=== PATIENT | female | born 1965 | race Caucasian/White ===

== ENCOUNTER 2016-11-25 06:15 | Inpatient (IN) | payer OTHER ==
[2016-11-25] MEDS ORDERED: ONDANSETRON 4 MG/2 ML VIAL IVPUSH ONE (06:45)
[2016-11-25] MEDS ORDERED: ONDANSETRON 4 MG/2 ML VIAL ONE (06:47)
[2016-11-25] MEDS ORDERED: LABETALOL HCL 5 MG/1 ML (100MG/20 ML VIAL) IVPUSH ONE (06:48)
--- NOTE | 2016-11-25 06:48 | PDOC ---
History of Present Illness - General Chief Complaint: AV shunt bleeding Stated Complaint: PAIN/BLEEDING ARM/DIALYSIS Time Seen by Provider: 11/25/16 06:38 History Source: Patient, Family Exam Limitations: No Limitations - History of Present Illness Initial Comments: 11/25/16 06:46 This is a 51 y/o female who presented to ED with complaint of bleeding from fistula Pt state she was in her usual state of health when she noted bleeding from her fistula this morning. She states that she had a large volume of bleeding To her knowledge, she had no trauma to the fistula She denies pain in the arm or hand no numbness or tingling Pt denies SOB, abdominal pain She does note mild chest pain, a twinge of pain which began yesterday No aggravating or alleviating factors Upon re assessment, chest pain was 2 weeks ago PMH: ESRD on HD (M/W/F), HLD and HTN. PSHx: Left AV fistula FMHX: DM2 and HTN SH: Denies tobacco, alcohol or drug use. Renal: Dr. Anant Manuel GENERAL/CONSTITUTIONAL: No: fever, chills, weakness, loss of appetite. HEAD, EYES, EARS, NOSE AND THROAT: No: change in vision, ear pain, discharge, sore throat, throat swelling. CARDIOVASCULAR: No: chest pain, lightheadedness, palpitations, syncope RESPIRATORY: No: cough, shortness of breath, wheezing, hemoptysis, stridor. GASTROINTESTINAL: No: nausea, vomiting, diarrhea, abdominal cramping, rectal bleeding, constipation. GENITOURINARY: No: dysuria, hematuria, frequency, urgency, flank pain. MUSCULOSKELETAL: No: back pain, neck pain, joint pain, muscle swelling or pain SKIN : No: lesions, pallor, rash or easy bruising. NEUROLOGIC: No: headache, vertigo, paresthesias, weakness ENDOCRINE: No: unexplained weight gain or loss HEMATOLOGIC/LYMPHATIC: No: anemia, easy bleeding, swelling nodes. GENERAL: The patient is in no acute distress, hypertensive, vomiting on my examination HEAD: Normal with no signs of trauma. EYES: PERRLA, EOMI, sclera anicteric, conjunctiva clear. ENT: Ears normal, nares patent, oropharynx clear without exudates. Moist mucous membranes. NECK: Normal range of motion, supple without lymphadenopathy, JVD, or masses. LUNGS: Breath sounds equal, clear to auscultation bilaterally. No wheezes, and no crackles. HEART: Regular rate and rhythm, normal S1 and S2 without murmur, rub or gallop. ABDOMEN: Soft, nontender, normoactive bowel sounds. No guarding, no rebound. No masses palpable. EXTREMITIES: (+) Thrill, (+) bruit LUW fistula, Normal range of motion, no edema. NEUROLOGICAL: Cranial nerves II through XII grossly intact. Normal speech. No focal neurological deficits. MUSCULOSKELETAL: Back non-tender to palpation, no CVA tenderness SKIN: Warm, Dry, normal turgor, no rashes or lesions noted. 11/25/16 06:48 11/25/16 06:49 Past History - Past Medical History Allergies/Adverse Reactions: Allergies Allergy/AdvReac Type Severity Reaction Status Date / Time Penicillins Allergy Mild Rash Verified 03/27/16 12:47 doxercalciferol AdvReac Intermediate Itching Verified 03/27/16 12:47 [From Hectorol] Home Medications: Ambulatory Orders Sevelamer Carbonate [Renvela -] 800 mg PO TIDCM #30 tab 03/16/13 Amlodipine Besylate [Norvasc -] 10 mg PO DAILY #30 tablet 12/27/14 Albuterol Sulfate [Proair Respiclick] 90 mcg IH ASDIR PRN 03/27/16 Ipratropium [place] [Atrovent Hfa] 12.9 gm IH ASDIR PRN 03/27/16 Omeprazole 20 mg PO DAILY 03/27/16 Cinacalcet HCl [Sensipar -] 60 mg PO DAILY 11/25/16 Clonidine HCl [Clonidine HCl ER] 0.1 mg PO ASDIR 11/25/16 Enalapril Maleate 5 mg PO ASDIR 11/25/16 Cardiac Disorders: Yes (PACEMAKER INSERTION) Dialysis: Yes (M,W,F) HTN: Yes - Surgical History Cardiac Surgery: Yes (PACEMAKER) - Immunization History Immunization Up to Date: Yes - Psycho/Social/Smoking Cessation Hx Anxiety: No Suicidal Ideation: No Smoking Status: No Smoking History: Never smoked Have you smoked in the past 12 months: No Number of Cigarettes Smoked Daily: 0 Information on smoking cessation initiated: No Hx Alcohol Use: No Drug/Substance Use Hx: No Substance Use Type: None Hx Substance Use Treatment: No *Physical Exam - Vital Signs Last Vital Signs Temp Pulse Resp BP Pulse Ox 98.3 F 71 19 201/69 99 11/25/16 06:37 11/25/16 06:37 11/25/16 06:37 11/25/16 06:37 11/25/16 06:37 ED Treatment Course - LABORATORY CBC & Chemistry Diagram: 11/27/16 05:35 11/26/16 18:30 Medical Decision Making - Critical Care Time Total Critical Care Time (minutes): 35 Critical Care Statement: The care of this patient involved high complexity decision making to prevent further life threatening deterioration of the patient 's condition and/or to evalute & treat vital organ system(s) failure or risk of failure. - Medical Decision Making 11/25/16 06:51 Will check pt labs Will do EKG (Given nausea, possible ACS) Will give Zofran for vomiting Pt hypertensive Labetolol ordered 11/25/16 06:55 Pt has her medications Takes Clonidine 1mg QHS and Enalapril 5 mg daily Had chest pain 2 weeks ago, none now No shortness of breath Awaiting labs CXR EKG 11/25/16 06:56 No bleeding from shunt noted Pt signed out to Dr Jain *DC/Admit/Observation/Transfer Diagnosis at time of Disposition: HTN (hypertension) Qualifiers: Hypertension type: essential hypertension Qualified Code(s): I10 - Essential ( primary) hypertension - Discharge Dispostion Condition at time of disposition: Guarded Admit: Yes
[2016-11-25] MEDS ORDERED: LABETALOL HCL 5 MG/1 ML (200MG/40ML VIAL) IVPB ONE (06:57)
[2016-11-25 07:43] LABS: BASOPHIL 0.9 % (0-2.0); EOSINOPHIL 3.2 % (0-4.5); MCHC 33.4 g/dl (32.0-36.0); MEAN CELL VOLUME 95.9 fl (80-96); MEAN PLT VOLUME 9.7 fl (7.5-11.1); NEUTROPHILS 69.7 % (42.8-82.8); PLATELET COUNT 160 K/MM3 (134-434); WHITE BLOOD COUNT 6.1 K/mm3 (4.0-10.0)
[2016-11-25 08:00] LABS: ALBUMIN 3.7 g/dl (3.4-5.0); AMYLASE 230 U/L (25-115); BILIRUBIN,TOTAL 0.7 mg/dL (0.2-1.0); CALCIUM 9.5 mg/dL (8.5-10.1); CO2 25 mmol/L (21-32); GLUCOSE,RANDOM 107 mg/dL (74-106); SGOT/AST 29 U/L (15-37); SGPT/ALT 19 U/L (12-78); TOT PROT 6.8 g/dl (6.4-8.2)
[2016-11-25 08:06] LABS: ALK PHOS 150 U/L (45-117); TROPONIN I 0.15 ng/ml (0.00-0.05)
[2016-11-25 08:08] LABS: INR 1.04 (0.82-1.09); PROTHROMBIN TIME (PATIENT) 11.4 SEC (9.98-11.88)
[2016-11-25 08:30] LABS: ANION GAP 14 (8-16)
[2016-11-25 08:36] LABS: CREATININE 12.4 mg/dL (0.55-1.02)
[2016-11-25] MEDS ORDERED: DEXTROSE 50%-WATER - 25 GM/50 ML VIAL IVPUSH ONE (09:12)
[2016-11-25] MEDS ORDERED: INSULIN REGULAR HUMAN 100 UNITS/ML *VIAL IVPUSH ONE (09:12)
[2016-11-25] MEDS ORDERED: CALCIUM GLUCONATE 10% - 1,000 MG/10 ML VIAL IVPUSH ONE (09:19)
--- NOTE | 2016-11-25 12:38 | EKG ---
Test Reason : Blood Pressure : / mmHG Vent. Rate : 064 BPM Atrial Rate : 064 BPM P-R Int : 156 ms QRS Dur : 098 ms QT Int : 440 ms P-R-T Axes : 007 -11 085 degrees QTc Int : 453 ms NORMAL SINUS RHYTHM NONSPECIFIC T WAVE ABNORMALITY ABNORMAL ECG WHEN COMPARED WITH ECG OF 25-NOV-2016 07:21, NO SIGNIFICANT CHANGE WAS FOUND Confirmed by LORNA WILLAMS MD ([id number]) on 11/25/2016 12:38:41 PM Referred By: Confirmed By:LORNA WILLAMS MD
--- NOTE | 2016-11-25 12:47 | EKG ---
Test Reason : Blood Pressure : / mmHG Vent. Rate : 062 BPM Atrial Rate : 062 BPM P-R Int : 170 ms QRS Dur : 110 ms QT Int : 448 ms P-R-T Axes : -04 001 087 degrees QTc Int : 454 ms NORMAL SINUS RHYTHM NORMAL ECG WHEN COMPARED WITH ECG OF 18-OCT-2015 13:30, NO SIGNIFICANT CHANGE WAS FOUND Confirmed by LORNA WILLAMS MD ([id number]) on 11/25/2016 12:47:32 PM Referred By: Confirmed By:LORNA WILLAMS MD
--- NOTE | 2016-11-25 13:52 | CONSULT ---
Consult Consult Specialty:: Nephrology Reason for Consultation:: ESRD - History of Present Illness Chief Complaint: bleeding from fistula History of Present Illness: Pt is a 51 year old female with pmhx of ESRD, HTN and anemia who presents to the ER complaining of bleeding from her fistula. The bleeding has stopped and she did not bleed in the ER. She denies chest pain or shortness of breath. She was found to be hyperkalemic and I was called to evaluate her. She denies palpitations. She denies fevers or chills. Pt denies abdominal pain. - History Source History Provided By: Patient - Past Medical History Cardio/Vascular: Yes: HTN, Hyperlipdemia Renal/: Yes: Renal Failure, Hemodialysis ...LMP: 06/02/13 - Past Surgical History Past Surgical History: Yes: AV Fistula/Graft - Alcohol/Substance Use Hx Alcohol Use: No - Smoking History Smoking history: Never smoked Have you smoked in the past 12 months: No Aproximately how many cigarettes per day: 0 - Social History ADL: Independent History of Recent Travel: No Home Medications - Allergies Allergies/Adverse Reactions: Allergies Allergy/AdvReac Type Severity Reaction Status Date / Time Penicillins Allergy Mild Rash Verified 03/27/16 12:47 doxercalciferol AdvReac Intermediate Itching Verified 03/27/16 12:47 [From Hectorol] - Home Medications Home Medications: Ambulatory Orders Sevelamer Carbonate [Renvela -] 800 mg PO TIDCM #30 tab 03/16/13 Amlodipine Besylate [Norvasc -] 10 mg PO DAILY #30 tablet 12/27/14 Albuterol Sulfate [Proair Respiclick] 90 mcg IH ASDIR PRN 03/27/16 Ipratropium [place] [Atrovent Hfa] 12.9 gm IH ASDIR PRN 03/27/16 Omeprazole 20 mg PO DAILY 03/27/16 Cinacalcet HCl [Sensipar -] 60 mg PO DAILY 11/25/16 Clonidine HCl [Clonidine HCl ER] 0.1 mg PO ASDIR 11/25/16 Enalapril Maleate 5 mg PO ASDIR 11/25/16 Family Disease History - Family Disease History Family History: Denies Review of Systems - Review of Systems Constitutional: reports: No Symptoms Eyes: reports: No Symptoms HENT: reports: No Symptoms Neck: reports: No Symptoms Cardiovascular: reports: No Symptoms Respiratory: reports: No Symptoms Gastrointestinal: reports: No Symptoms Genitourinary: reports: No Symptoms Musculoskeletal: reports: Other (av fistula) Neurological: reports: No Symptoms Endocrine: reports: No Symptoms Psychiatric: reports: No Symptoms Physical Exam Vital Signs: Vital Signs Temperature 98.0 F 11/25/16 11:12 Pulse Rate 61 11/25/16 11:12 Respiratory Rate 20 11/25/16 11:12 Blood Pressure 165/80 11/25/16 11:12 O2 Sat by Pulse Oximetry (%) 99 11/25/16 11:12 Constitutional: Yes: Calm Eyes: Yes: Conjunctiva Clear HENT: Yes: Atraumatic Neck: Yes: Supple Cardiovascular: Yes: S1, S2 Respiratory: Yes: CTA Bilaterally Gastrointestinal: Yes: Soft Renal/: Yes: WNL Musculoskeletal: Yes: WNL Extremities: Yes: Other (fistula with thrill and bruit) Neurological: Yes: Oriented Psychiatric: Yes: Oriented Labs: CBC, BMP 11/25/16 06:55 11/25/16 10:46 Problem List - Problems (1) ESRD (end stage renal disease) Code(s): N18.6 - END STAGE RENAL DISEASE (2) Hyperkalemia Code(s): E87.5 - HYPERKALEMIA (3) Bleeding from dialysis shunt Code(s): T82.838A - HEMORRHAGE DUE TO VASCULAR PROSTH DEV/GRFT, INIT Qualifiers: Encounter type: initial encounter Qualified Code(s): T82.838A - Hemorrhage due to vascular prosthetic devices, implants and grafts, initial encounter Assessment/Plan Impression 1. ESRD 2. hyperkalemia 3. bleeding fistula 4. HTN 5. anemia 6. elevated amylase and lipase Plan - will arrange for HD today - resume home medications - repeat labs after HD - epogen for anemia - monitor blood pressure - vascular surgery eval - HD Prescription :L3:30, opti 180 doo448, DW 43.5, AV fistula, epogen 6000, calcitriol 0.[address] Wright
[2016-11-25] MEDS ORDERED: EPOETIN ALFA 2,000 UNITS/1 ML VIAL IVPUSH ONE (13:58)
[2016-11-25] MEDS ORDERED: CALCITRIOL 0.25 MCG CAPSULE (FP) PO SCH (14:45)
[2016-11-25] MEDS ORDERED: EPOETIN ALFA 3,000 UNIT, EPOETIN ALFA 2,000 UNIT IVPUSH ONE (16:45)
--- NOTE | 2016-11-25 17:05 | HP ---
CHIEF COMPLAINT: Left upper arm fistula with acute bleeding. PCP: Renal: Dr. Manuel. HISTORY OF PRESENT ILLNESS: Patient is a 51 year old female with a significant past medical history of ESRD. She presented to the ER today with complaint of bleeding from her left upper arm fistula. Patient states that she was at her usual state of health when she noted bleeding from her fistula this morning. She states that she had a large volume of bleeding and denies any trauma to the fistula. She denies any pain in the arm or hand. Denies any numbness or tingling. She denies any chest pain or shortness of breath. ER course was notable for: (1) Trop 0.15 (2) Potassium 6.3-6.6 (3) Lipase 1302 (4) +bruit + thrill Left arm fistula Recent Travel: denies PAST MEDICAL HISTORY: ESRD on HD (M/W/F), HLD and HTN, DM2 and HTN PAST SURGICAL HISTORY: Left AV fistula Social History: Smoking: denies Alcohol: denies Drugs: denies Family History: Allergies Penicillins Allergy (Mild, Verified 03/27/16 12:47) Rash doxercalciferol [From Hectorol] Adverse Reaction (Intermediate, Verified 12:47) Itching HOME MEDICATIONS: Home Medications Medication Instructions Recorded Sevelamer Carbonate [Renvela -] 800 mg PO TIDCM #30 tab 03/16/13 Amlodipine Besylate [Norvasc -] 10 mg PO DAILY #30 tablet 12/27/14 Albuterol Sulfate [Proair 90 mcg IH ASDIR PRN 03/27/16 Respiclick] Ipratropium [place] [Atrovent Hfa] 12.9 gm IH ASDIR PRN 03/27/16 Omeprazole 20 mg PO DAILY 03/27/16 Cinacalcet HCl [Sensipar -] 60 mg PO DAILY 11/25/16 Clonidine HCl [Clonidine HCl ER] 0.1 mg PO ASDIR 11/25/16 Enalapril Maleate 5 mg PO ASDIR 11/25/16 REVIEW OF SYSTEMS CONSTITUTIONAL: GENERAL/CONSTITUTIONAL: No: fever, chills, weakness, loss of appetite. HEAD, EYES, EARS, NOSE AND THROAT: No: change in vision, ear pain, discharge, sore throat, throat swelling. CARDIOVASCULAR: No: chest pain, lightheadedness, palpitations, syncope RESPIRATORY: No: cough, shortness of breath, wheezing, hemoptysis, stridor. GASTROINTESTINAL: No: nausea, vomiting, diarrhea, abdominal cramping, rectal bleeding, constipation. GENITOURINARY: No: dysuria, hematuria, frequency, urgency, flank pain. MUSCULOSKELETAL: No: back pain, neck pain, joint pain, muscle swelling or pain SKIN : No: lesions, pallor, rash or easy bruising. NEUROLOGIC: No: headache, vertigo, paresthesias, weakness ENDOCRINE: No: unexplained weight gain or loss HEMATOLOGIC/LYMPHATIC: No: anemia, easy bleeding, swelling nodes. PHYSICAL EXAMINATION GENERAL: The patient is in no acute distress, hypertensive, vomiting on examination HEAD: Normal with no signs of trauma. EYES: PERRLA, EOMI, sclera anicteric, conjunctiva clear. ENT: Ears normal, nares patent, oropharynx clear without exudates. Moist mucous membranes. NECK: Normal range of motion, supple without lymphadenopathy, JVD, or masses. LUNGS: Breath sounds equal, clear to auscultation bilaterally. No wheezes, and no crackles. HEART:Regular rate and rhythm, normal S1 and S2 without murmur, rub or gallop. ABDOMEN: Soft, nontender, normoactive bowel sounds. No guarding, no rebound. No masses palpable. EXTREMITIES: (+) Thrill, (+) bruit L fistula, Normal range of motion, no edema. NEUROLOGICAL: Cranial nerves II through XII grossly intact. Normal speech. No focal neurological deficits. MUSCULOSKELETAL: Back non-tender to palpation, no CVA tenderness SKIN: Warm, Dry, normal turgor, no rashes or lesions noted. ASSESSMENT/PLAN: Patient is a 51 year old female with a significant past medical history of ESRD. She presented to the ER today with complaint of bleeding from her left upper arm fistula. Patient states that she was at her usual state of health when she noted bleeding from her fistula this morning. She states that she had a large volume of bleeding and denies any trauma to the fistula. She denies any pain in the arm or hand. Denies any numbness or tingling. She denies any chest pain or shortness of breath. On admission her potassium levels were noted to be 6.6, troponins 0.15. She is now in dialysis after an emergent shiley was placed on her right groin. Renal: ESRD Assessment/Plan: For dialysis today via right groin shiley placement K @ 6.6, will repeat labs after dialysis and the a.m. and monitor No acute bleeding since admission, will repeat CBC, CMP and monitor Vascular consult Cardiology: Elevated Troponins - rule out ACS Assessment/Plan: 1st trop elevated @ 0.15, will trend Denies chest pain on exam, denies shortness of breath, denies any nausea or vomiting EKG shows NSR with non specific t wave abnormality, no change since last smalltalk developer elevated K and trops If trops rise, will transfer to tele GI: Elevated Lipase @ 1302, no abdominal pain or discomfort Assessment/Plan: Tolerated meal today without nausea or vomiting Will monitor for now F.E.N. Fluids: Tolerating PO Electrolytes: monitor Nutrition: renal diet Prophylaxis: No a/c secondary to acute blood loss GI: deferred for now. Disposition: Requires inpatient hospitalization. Full code. Visit type - Emergency Visit Emergency Visit: Yes ED Registration Date: 11/25/16 Care time: The patient presented to the Emergency Department on the above date and was hospitalized for further evaluation of their emergent condition. - New Patient This patient is new to me today: Yes Date on this admission: 11/25/16 - Critical Care Critical Care patient: No
[2016-11-25] MEDS ORDERED: PATIENT'S OWN MEDICATION (NON-FORMULARY) (Albuterol Sulfate [Proair Respiclick] 90 MCG) IH PRN (17:12)
[2016-11-25] MEDS ORDERED: PATIENT'S OWN MEDICATION (NON-FORMULARY) (Ipratropium Bromide [Atrovent Hfa] 12.9 GM) IH PRN (17:12)
[2016-11-25] MEDS ORDERED: PATIENT'S OWN MEDICATION (NON-FORMULARY) (Clonidine Hcl [Clonidine Hcl Er] 0.1 MG) PO SCH (17:15)
--- NOTE | 2016-11-25 17:45 | PROC ---
Central Line Insertion - Procedure Note TIME OUT performed prior to this procedure with verbal confirmation of correct patient identity, correct side, agreement of the procedure, correct patient position, availability of necessary equipment. The consent form is complete and accurate. Risk of possible infection, bleeding and pneumothorax have been discussed with the patient. Safety precautions based on patient history or medication use has been addressed. Indication: Other (hemodialysis access) Consent on Chart: Yes ( [facility] #[id number]) Central Line: Dialysis Cath, Dual Lumen Position: Supine Area prepped with Chlorhexidine solution then draped using sterile barrier protection. Anesthesia: Lidocaine 1% (15ml) Technique used: Seldinger Ultrasound Guided Assistance: No Site: Right Femoral Dark venous non-pulsatile flow noted from hub of needle. The catheter was introduced. Guide wire removed intact. Each port aspirated then flushed with sterile normal saline. The Line secured to skin with silk suture. The line was connected to the HD machine and good flows were obtained. Sterile dressing placed over catheter site.Nurses to apply final dressing.No complications. Patient tolerated the procedure well.
[2016-11-25] MEDS ORDERED: ALBUTEROL SO4 2.5/IPRATROPIUM 0.5 INH SOL 3 ML VIAL.NEB. NEB PRN (18:41)
[2016-11-25 21:24] LABS: BASOPHIL 0.7 % (0-2.0); EOSINOPHIL 1.7 % (0-4.5); MCH 31.4 pg (25.7-33.7); MCHC 32.9 g/dl (32.0-36.0); MEAN CELL VOLUME 95.4 fl (80-96); MEAN PLT VOLUME 9.6 fl (7.5-11.1); PLATELET COUNT 168 K/MM3 (134-434); RDW 15.4 % (11.6-15.6); WHITE BLOOD COUNT 4.6 K/mm3 (4.0-10.0)
[2016-11-25] MEDS ORDERED: ACETAMINOPHEN 325 MG TABLET (FP) PO PRN (21:48)
[2016-11-25 21:49] LABS: ALBUMIN 3.5 g/dl (3.4-5.0); ALK PHOS 135 U/L (45-117); ANION GAP 10 (8-16); BILIRUBIN,TOTAL 0.6 mg/dL (0.2-1.0); CALCIUM 8.5 mg/dL (8.5-10.1); CO2 33 mmol/L (21-32); CREATININE 4.3 mg/dL (0.55-1.02); GLUCOSE,RANDOM 183 mg/dL (74-106); SGOT/AST 26 U/L (15-37); SGPT/ALT 17 U/L (12-78); TOT PROT 6.7 g/dl (6.4-8.2)
[2016-11-25] MEDS: CALCITRIOL 0.25 MCG CAPSULE (FP) PO SCH (21:55)
[2016-11-25] MEDS: cloNIDine HCL 0.1 MG TABLET PO SCH (22:42)
[2016-11-25 23:32] VITALS: BMI 23.6
[2016-11-26] MEDS: SEVELAMER CARBONATE 800 MG TAB (FP) PO SCH ×3 (08:00→17:56)
[2016-11-26 08:50] LABS: BASOPHIL 1.3 % (0-2.0); EOSINOPHIL 3.2 % (0-4.5); MCH 31.6 pg (25.7-33.7); MCHC 32.9 g/dl (32.0-36.0); MEAN CELL VOLUME 96.1 fl (80-96); MEAN PLT VOLUME 10.1 fl (7.5-11.1); NEUTROPHILS 72.5 % (42.8-82.8); PLATELET COUNT 151 K/MM3 (134-434); RDW 14.9 % (11.6-15.6); WHITE BLOOD COUNT 4.6 K/mm3 (4.0-10.0)
[2016-11-26 09:20] LABS: ALBUMIN 3.2 g/dl (3.4-5.0); ANION GAP 9 (8-16); CALCIUM 8.8 mg/dL (8.5-10.1); CO2 30 mmol/L (21-32); GLUCOSE,RANDOM 87 mg/dL (74-106)
[2016-11-26 09:30] LABS: ALK PHOS 128 U/L (45-117); BILIRUBIN,TOTAL 0.6 mg/dL (0.2-1.0); PHOSPHOROUS 6.6 mg/dL (2.5-4.9); SGOT/AST 26 U/L (15-37); SGPT/ALT 15 U/L (12-78); TOT PROT 6.3 g/dl (6.4-8.2)
[2016-11-26 09:31] LABS: CHOLESTEROL 164 mg/dL (50-200); LDL CHOLESTEROL (ONLY SJRH) 92 mg/dL (5-100)
[2016-11-26 10:03] LABS: CREATININE 8.2 mg/dL (0.55-1.02)
[2016-11-26] MEDS ORDERED: PT OWN MED DRAWER 7, Y5N ONE ×3 (10:48→21:29)
[2016-11-26] MEDS: amLODIPine BESYLATE 10 MG TABLET (FP) PO SCH (10:51)
[2016-11-26] MEDS: cloNIDine HCL 0.1 MG TABLET PO SCH ×3 (10:51→21:41)
[2016-11-26] MEDS: CINACALCET HCL 30 MG TAB (FP) PO SCH ×2 (10:52→12:41)
[2016-11-26] MEDS: ENALAPRIL MALEATE 5 MG TABLET (FP) PO SCH (10:52)
[2016-11-26] MEDS: PANTOPRAZOLE 20 MG TABLET (FP) PO SCH ×2 (10:52→12:41)
--- NOTE | 2016-11-26 11:23 | PN ---
Physical Exam: SUBJECTIVE: Patient seen and examined. Verbalizing pain of the right shiley site. Denies chest pain or shortness of breath OBJECTIVE: Emergent right groin shiley placed yesterday and patient received dialysis Morning labs shows Potassium 6.6, creat 8.2 Patient for repeat dialysis (via right groin shiley) as per Dr. Momin Trops 0.15>0.14>0.14, cardiology consulted Vascular to evaluate LUE av fistula Vital Signs Period Temp Pulse Resp BP Sys/Angel Pulse Ox Last 24 Hr 98.2 F-98.4 F 57-81 18-18 147-177/59-80 99 GENERAL: The patient is in no acute distress, hypertensive, vomiting on examination HEAD: Normal with no signs of trauma. EYES: PERRLA, EOMI, sclera anicteric, conjunctiva clear. ENT: Ears normal, nares patent, oropharynx clear without exudates. Moist mucous membranes. NECK: Normal range of motion, supple without lymphadenopathy, JVD, or masses. LUNGS: Breath sounds equal, clear to auscultation bilaterally. No wheezes, and no crackles. HEART:Regular rate and rhythm, normal S1 and S2 without murmur, rub or gallop. ABDOMEN: Soft, nontender, normoactive bowel sounds. No guarding, no rebound. No masses palpable. EXTREMITIES: (+) Thrill, (+) bruit L fistula, Normal range of motion, no edema - no further bleeding NEUROLOGICAL: Cranial nerves II through XII grossly intact. Normal speech. No focal neurological deficits. MUSCULOSKELETAL: Back non-tender to palpation, no CVA tenderness SKIN: Warm, Dry, normal turgor, no rashes or lesions noted. Laboratory Results - last 24 hr 11/25/16 11/25/16 11/25/16 21:00 21:00 21:00 WBC 4.6 RBC 3.41 L Hgb 10.7 D Hct 32.5 MCV 95.4 MCHC 32.9 RDW 15.4 Plt Count 168 MPV 9.6 Neutrophils % 79.0 Lymphocytes % 15.3 D Monocytes % 3.3 L Eosinophils % 1.7 Basophils % 0.7 Sodium 141 Potassium 3.7 D Chloride 98 Carbon Dioxide 33 H D Anion Gap 10 BUN 24 H D Creatinine 4.3 H D Creat Clearance w eGFR 10.82 POC Glucometer Random Glucose 183 H D Hemoglobin A1c % Calcium 8.5 Phosphorus Total Bilirubin 0.6 AST 26 ALT 17 Alkaline Phosphatase 135 H Troponin I 0.14 H Total Protein 6.7 Albumin 3.5 Triglycerides Cholesterol Total LDL Cholesterol HDL Cholesterol Lipase 11/25/16 11/26/16 11/26/16 21:50 00:52 05:52 WBC RBC Hgb Hct MCV MCHC RDW Plt Count MPV Neutrophils % Lymphocytes % Monocytes % Eosinophils % Basophils % Sodium Potassium Chloride Carbon Dioxide Anion Gap BUN Creatinine Creat Clearance w eGFR POC Glucometer 159 92 Random Glucose Hemoglobin A1c % Calcium Phosphorus Total Bilirubin AST ALT Alkaline Phosphatase Troponin I 0.14 H Total Protein Albumin Triglycerides Cholesterol Total LDL Cholesterol HDL Cholesterol Lipase 11/26/16 11/26/16 11/26/16 07:20 07:20 07:20 WBC 4.6 RBC 3.67 Hgb 11.6 Hct 35.3 MCV 96.1 H MCHC 32.9 RDW 14.9 Plt Count 151 MPV 10.1 Neutrophils % 72.5 Lymphocytes % 16.5 Monocytes % 6.5 D Eosinophils % 3.2 D Basophils % 1.3 Sodium 138 Potassium 6.6 H* D Chloride 99 Carbon Dioxide 30 Anion Gap 9 BUN 44 H D Creatinine 8.2 H* D Creat Clearance w eGFR 5.14 POC Glucometer Random Glucose 87 D Hemoglobin A1c % Calcium 8.8 Phosphorus 6.6 H D Total Bilirubin 0.6 AST 26 ALT 15 Alkaline Phosphatase 128 H Troponin I Total Protein 6.3 L Albumin 3.2 L Triglycerides Cholesterol Total LDL Cholesterol HDL Cholesterol Lipase 489 H 11/26/16 11/26/16 07:20 07:20 WBC RBC Hgb Hct MCV MCHC RDW Plt Count MPV Neutrophils % Lymphocytes % Monocytes % Eosinophils % Basophils % Sodium Potassium Chloride Carbon Dioxide Anion Gap BUN Creatinine Creat Clearance w eGFR POC Glucometer Random Glucose Hemoglobin A1c % 4.7 L D Calcium Phosphorus Total Bilirubin AST ALT Alkaline Phosphatase Troponin I Total Protein Albumin Triglycerides 130 D Cholesterol 164 Total LDL Cholesterol 92 HDL Cholesterol 61 H Lipase Active Medications Generic Name Dose Route Start Last Admin Trade Name Freq PRN Reason Stop Dose Admin Acetaminophen 650 mg 11/25/16 21:48 11/25/16 21:56 Tylenol - PO 650 mg Q4H PRN Administration FEVER OR PAIN Albuterol/Ipratropium 1 amp 11/25/16 18:41 Duoneb - NEB Q6H PRN SHORTNESS OF BREATH Amlodipine Besylate 10 mg 11/26/16 10:00 11/26/16 10:51 Norvasc - PO Not Given DAILY SKYE Calcitriol 0.75 mcg 11/25/16 21:30 11/25/16 21:55 Rocaltrol - PO 0.75 mcg Q2D SKYE Administration Cinacalcet 60 mg 11/26/16 10:00 11/26/16 10:52 Sensipar - PO Not Given DAILY SKYE Clonidine 0.1 mg 11/25/16 22:00 11/26/16 10:51 Catapres - PO Not Given BID SKYE Enalapril Maleate 5 mg 11/26/16 10:00 11/26/16 10:52 Vasotec - PO Not Given DAILY SKYE Pantoprazole Sodium 20 mg 11/26/16 10:00 11/26/16 10:52 Protonix - PO Not Given DAILY SKYE Sevelamer Carbonate 800 mg 11/25/16 17:30 11/26/16 08:00 Renvela - PO Not Given TIDCM [facility] ASSESSMENT/PLAN: Patient is a 51 year old female with a significant past medical history of ESRD. She presented to the ER on 11/25/2016 with complaint of bleeding from her left upper arm fistula. Patient states that she was at her usual state of health when she noted bleeding from her fistula. She states that she had a large volume of bleeding and denies any trauma to the fistula. She denies any pain in the arm or hand. Denies any numbness or tingling. She denies any chest pain or shortness of breath. On admission her potassium levels were noted to be 6.6, troponins 0.15. Renal: ESRD Assessment/Plan: Received dialysis yesterday via right groin shiley, post dialysis lab shows improvement Repeat a.m. labs shows K of 6.6 and Creat of 8.2 For repeat dialysis today via right groin shiley placement No acute bleeding since admission of Left upper arm fistula Vascular consult to evaluate fistula Renal following Cardiology: Elevated Troponins - rule out ACS Assessment/Plan: Trops 0.15>0.14>0.14 Denies chest pain on exam, denies shortness of breath, denies any nausea or vomiting EKG shows NSR with non specific t wave abnormality, no change since last EKG Cardiology consulted and following GI: Elevated Lipase @ 1302 on admission, now trending down Assessment/Plan: no abdominal pain or discomfort, tolerating meals Patient without nausea or vomiting Will monitor for now F.E.N. Fluids: Tolerating PO Electrolytes: monitor Nutrition: renal diet Prophylaxis: No a/c secondary to acute blood loss, SCDs while in bed GI: deferred for now. Disposition: Requires inpatient hospitalization. Full code. Visit type - Emergency Visit Emergency Visit: Yes ED Registration Date: 11/25/16 Care time: The patient presented to the Emergency Department on the above date and was hospitalized for further evaluation of their emergent condition. - New Patient This patient is new to me today: No - Critical Care Critical Care patient: No - Discharge Referral Referred to [facility] Med P.C[facility] No
[2016-11-26] MEDS ORDERED: POLYETHYLENE GLYCOL 3350 119 GM BTL PO ONE (11:24)
[2016-11-26] MEDS ORDERED: morphine CARPU-JECT 2 MG/1 ML DISP.SYRIN IVPUSH PRN (11:24)
[2016-11-26 11:38] LABS: ALBUMIN 3.4 g/dl (3.4-5.0); ANION GAP 11 (8-16); BILIRUBIN,TOTAL 0.5 mg/dL (0.2-1.0); CALCIUM 9.7 mg/dL (8.5-10.1); CO2 32 mmol/L (21-32); GLUCOSE,RANDOM 98 mg/dL (74-106); SGOT/AST 21 U/L (15-37); SGPT/ALT 18 U/L (12-78); TOT PROT 6.2 g/dl (6.4-8.2)
[2016-11-26 11:43] LABS: ALK PHOS 126 U/L (45-117)
--- NOTE | 2016-11-26 11:51 | CON.CARD ---
Consult Consult Specialty:: Cardiology Referred by:: Hospitalist Reason for Consultation:: Cardiac evaluation - History of Present Illness History of Present Illness: Patient is a 51 year old female of descent with history of ESRD on HD, hypertension and hypercholesterolemia who presented with left upper arm fistula bleeding. She complains of mild chest discomfort in the mid sternum. She denies shortness of breath or palpitations. She denies paroxysmal nocturnal dyspnea or orthopnea. She denies fever or chills. She denies headache or lightheadedness. Cardiology consultation was called for further evaluation. - History Source History Provided By: Patient, Medical Record Limitations to Obtaining History: Language Barrier - Past Medical History Cardio/Vascular: Yes: HTN, Hyperlipdemia Renal/: Yes: Renal Failure, Hemodialysis ...LMP: 06/02/13 - Past Surgical History Past Surgical History: Yes: AV Fistula/Graft - Alcohol/Substance Use Hx Alcohol Use: No History of Substance Use: reports: None - Smoking History Smoking history: Never smoked Have you smoked in the past 12 months: No Aproximately how many cigarettes per day: 0 - Social History ADL: Independent History of Recent Travel: No Home Medications - Allergies Allergies/Adverse Reactions: Allergies Allergy/AdvReac Type Severity Reaction Status Date / Time Penicillins Allergy Mild Rash Verified 03/27/16 12:47 doxercalciferol AdvReac Intermediate Itching Verified 03/27/16 12:47 [From Hectorol] - Home Medications Home Medications: Ambulatory Orders Sevelamer Carbonate [Renvela -] 800 mg PO TIDCM #30 tab 03/16/13 Amlodipine Besylate [Norvasc -] 10 mg PO DAILY #30 tablet 12/27/14 Albuterol Sulfate [Proair Respiclick] 90 mcg IH ASDIR PRN 03/27/16 Ipratropium [place] [Atrovent Hfa] 12.9 gm IH ASDIR PRN 03/27/16 Omeprazole 20 mg PO DAILY 03/27/16 Cinacalcet HCl [Sensipar -] 60 mg PO DAILY 11/25/16 Clonidine HCl [Clonidine HCl ER] 0.1 mg PO ASDIR 11/25/16 Enalapril Maleate 5 mg PO ASDIR 11/25/16 Family Disease History - Family Disease History Other Family History: DM and HTN Review of Systems - Review of Systems Constitutional: denies: Chills, Fever Cardiovascular: reports: Chest Pain. denies: Palpitations, Shortness of Breath Respiratory: denies: Cough, Orthopnea, PND, SOB, SOB on Exertion Gastrointestinal: denies: Abdominal Pain, Constipation, Diarrhea, Melena, Nausea , Rectal Bleeding, Vomiting Neurological: denies: Dizziness, Headache, Seizure, Syncope Vital Signs: Vital Signs Temperature 98.4 F 11/26/16 06:00 Pulse Rate 57 L 11/26/16 06:00 Respiratory Rate 18 11/26/16 06:00 Blood Pressure 150/76 11/26/16 06:00 O2 Sat by Pulse Oximetry (%) 99 11/25/16 23:35 Neck: Yes: Supple Respiratory: Yes: Regular, CTA Bilaterally Gastrointestinal: Yes: Normal Bowel Sounds, Soft. No: Tenderness Cardiovascular: Yes: Regular Rate and Rhythm JVD: No Carotid Bruit: No PMI: Non-Displaced Heart Sounds: Yes: S1, S2 Edema: No - Other Data Labs, Other Data: CBC, BMP 11/26/16 07:20 INR, PTT INR 1.04 (0.82-1.09) 11/25/16 07:39 Troponin, BNP Laboratory Results - last 24 hr 11/26/16 11/26/16 11/26/16 00:52 05:52 07:20 WBC RBC Hgb Hct MCV MCHC RDW Plt Count MPV Neutrophils % Lymphocytes % Monocytes % Eosinophils % Basophils % Sodium 138 Potassium 6.6 H* D Chloride 99 Carbon Dioxide 30 Anion Gap 9 BUN 44 H D Creatinine 8.2 H* D Creat Clearance w eGFR 5.14 POC Glucometer 92 Random Glucose 87 D Hemoglobin A1c % Calcium 8.8 Phosphorus 6.6 H D Total Bilirubin 0.6 AST 26 ALT 15 Alkaline Phosphatase 128 H Creatine Kinase Troponin I 0.14 H Total Protein 6.3 L Albumin 3.2 L Triglycerides Cholesterol Total LDL Cholesterol HDL Cholesterol Lipase 11/26/16 11/26/16 11/26/16 07:20 07:20 07:20 WBC 4.6 RBC 3.67 Hgb 11.6 Hct 35.3 MCV 96.1 H MCHC 32.9 RDW 14.9 Plt Count 151 MPV 10.1 Neutrophils % 72.5 Lymphocytes % 16.5 Monocytes % 6.5 D Eosinophils % 3.2 D Basophils % 1.3 Sodium Potassium Chloride Carbon Dioxide Anion Gap BUN Creatinine Creat Clearance w eGFR POC Glucometer Random Glucose Hemoglobin A1c % Calcium Phosphorus Total Bilirubin AST ALT Alkaline Phosphatase Creatine Kinase Troponin I Total Protein Albumin Triglycerides 130 D Cholesterol 164 Total LDL Cholesterol 92 HDL Cholesterol 61 H Lipase 489 H 11/26/16 11/26/16 11/26/16 07:20 10:50 18:30 WBC RBC Hgb Hct MCV MCHC RDW Plt Count MPV Neutrophils % Lymphocytes % Monocytes % Eosinophils % Basophils % Sodium 139 140 Potassium 6.2 H* 3.1 L D Chloride 96 L 99 Carbon Dioxide 32 36 H Anion Gap 11 5 L BUN 50 H 12 D Creatinine 8.5 H* 2.0 H D Creat Clearance w eGFR 4.93 POC Glucometer Random Glucose 98 140 H D Hemoglobin A1c % 4.7 L D Calcium 9.7 7.8 L Phosphorus Total Bilirubin 0.5 AST 21 ALT 18 Alkaline Phosphatase 126 H Creatine Kinase Troponin I Total Protein 6.2 L Albumin 3.4 Triglycerides Cholesterol Total LDL Cholesterol HDL Cholesterol Lipase 11/25/16 11/26/16 21:00 00:52 Troponin I 0.14 H 0.14 H Sinus rhythm with ST-T abnormality in inferior and lateral leads Imaging - Results EKG: Report Reviewed Problem List - Problems (1) ESRD (end stage renal disease) Code(s): N18.6 - END STAGE RENAL DISEASE (2) Atypical chest pain Code(s): R07.89 - OTHER CHEST PAIN (3) Hemorrhage of arteriovenous fistula Code(s): T82.838A - HEMORRHAGE DUE TO VASCULAR PROSTH DEV/GRFT, INIT Qualifiers: Encounter type: initial encounter Qualified Code(s): T82.838A - Hemorrhage due to vascular prosthetic devices, implants and grafts, initial encounter (4) Hemodialysis access site with arteriovenous graft Code(s): Z99.2 - DEPENDENCE ON RENAL DIALYSIS (5) HTN (hypertension) Code(s): I10 - ESSENTIAL (PRIMARY) HYPERTENSION Qualifiers: Hypertension type: essential hypertension Qualified Code(s): I10 - Essential (primary) hypertension (6) Hypercholesterolemia Code(s): E78.00 - PURE HYPERCHOLESTEROLEMIA, UNSPECIFIED Assessment/Plan 1. Bleeding in the AV fistula 2. ESRD on HD 3. HTN 4. Hypercholesterolemia 5. Probable CAD - demand ischemia PLAN: 1. Cardiac enzyme and ECG 2. Continue Amlodipine, Clonidine and Vasotec (titrate dose) 3. Transthoracic echocardiography to assess LV and valvular function 4. HD 5. Vascular surgical evaluation Further plans are to follow Arthur Castaneda MD
[2016-11-26 11:56] LABS: CREATININE 8.5 mg/dL (0.55-1.02)
--- NOTE | 2016-11-26 12:00 | PN ---
Progress Note (short form) - Note Progress Note: Spoke with the patient yesterday regarding the bleeding in her upper arm fistula. The [employer] phone was used ( alliance manager number [phone] ). She states that starting last week she had some bleeding with her HD session, the following session the needles were placed in another location and she didn't have any bleeding. Friday her fistula started to bleed and eventually stopped after holding pressure. She was seen in Dr. Lopez's office an had a duplex completed. The patient denies any fevers, or erythema to her arm and has no pain. Today the patient has some pain in right groin, otherwise ok. Vital Signs Period Temp Pulse Resp BP Sys/Angel Pulse Ox Last 24 Hr 98.2 F-98.4 F 54-81 18-18 147-202/59-80 99 PE: GEN: appears comfortable Right groin: shiley in place, no masses/ecchymosis b/l feet warm with palpable DP pulses. LUE: good thrill, no bleeding noted. dry dressing remains in place. CBC, BMP 11/26/16 07:20 11/26/16 10:50 A/P: 51 yo female with LUE fistula and bleeding right femoral catheter shiley placed 11/25 and had dialysis 2.0 kgs wt removed. Repeat K remains elevated today, although yest lab improved. Plan for possible HD today again via right femoral shiley Npo after midnight for left AV venogram, as D/w Dr. Price
--- NOTE | 2016-11-26 14:28 | PN ---
Progress Note, Physician History of Present Illness: Pt seen and examined at bedside. She is awake and alert. She denies shortness of breath or palpitations. - Current Medication List Current Medications: Active Medications Acetaminophen (Tylenol -) 650 mg PO Q4H PRN PRN Reason: FEVER OR PAIN Last Admin: 11/25/16 21:56 Dose: 650 mg Albuterol/Ipratropium (Duoneb -) 1 amp NEB Q6H PRN PRN Reason: SHORTNESS OF BREATH Amlodipine Besylate (Norvasc -) 10 mg PO DAILY [facility] Last Admin: 11/26/16 10:51 Dose: Not Given Calcitriol (Rocaltrol -) 0.75 mcg PO Q2D [facility] Last Admin: 11/25/16 21:55 Dose: 0.75 mcg Cinacalcet (Sensipar -) 60 mg PO DAILY [facility] Last Admin: 11/26/16 12:41 Dose: 60 mg Clonidine (Catapres -) 0.1 mg PO BID [facility] Last Admin: 11/26/16 12:43 Dose: 0.1 mg Enalapril Maleate (Vasotec -) 5 mg PO DAILY [facility] Last Admin: 11/26/16 10:52 Dose: Not Given Morphine Sulfate (Morphine Injection -) 1 mg IVPUSH Q4H PRN PRN Reason: PAIN Pantoprazole Sodium (Protonix -) 20 mg PO DAILY [facility] Last Admin: 11/26/16 12:41 Dose: 20 mg Sevelamer Carbonate (Renvela -) 800 mg PO TIDCM [facility] Last Admin: 11/26/16 12:41 Dose: 800 mg - Objective Vital Signs: Vital Signs Temperature 99.1 F 11/26/16 10:00 Pulse Rate 68 11/26/16 10:00 Respiratory Rate 18 11/26/16 10:00 Blood Pressure 158/67 11/26/16 10:00 O2 Sat by Pulse Oximetry (%) 99 11/25/16 23:35 Constitutional: Yes: Calm Eyes: Yes: Conjunctiva Clear HENT: Yes: Atraumatic Neck: Yes: Supple Cardiovascular: Yes: S1, S2 Respiratory: Yes: CTA Bilaterally Gastrointestinal: Yes: Normal Bowel Sounds, Soft Genitourinary: Yes: WNL Musculoskeletal: Yes: WNL Extremities: Yes: Other (left arm fistula with thrill and bruit) Edema: No Neurological: Yes: Oriented Psychiatric: Yes: Oriented Labs: CBC, BMP 11/26/16 07:20 11/26/16 10:50 INR, PTT INR 1.04 (0.82-1.09) 11/25/16 07:39 Problem List - Problems (1) ESRD (end stage renal disease) Code(s): N18.6 - END STAGE RENAL DISEASE (2) Hyperkalemia Code(s): E87.5 - HYPERKALEMIA (3) Bleeding from dialysis shunt Code(s): T82.838A - HEMORRHAGE DUE TO VASCULAR PROSTH DEV/GRFT, INIT Qualifiers: Encounter type: initial encounter Qualified Code(s): T82.838A - Hemorrhage due to vascular prosthetic devices, implants and grafts, initial encounter Assessment/Plan Current Medications Generic Name Dose Route Start Last Admin Trade Name Freq PRN Reason Stop Dose Admin Acetaminophen 650 mg 11/25/16 21:48 11/25/16 21:56 Tylenol - PO 650 mg Q4H PRN Administration FEVER OR PAIN Albuterol/Ipratropium 1 amp 11/25/16 18:41 Duoneb - NEB Q6H PRN SHORTNESS OF BREATH Amlodipine Besylate 10 mg 11/26/16 10:00 11/26/16 10:51 Norvasc - PO Not Given DAILY [facility] Calcitriol 0.75 mcg 11/25/16 21:30 11/25/16 21:55 Rocaltrol - PO 0.75 mcg Q2D [facility] Administration Cinacalcet 60 mg 11/26/16 10:00 11/26/16 12:41 Sensipar - PO 60 mg DAILY [facility] Administration Clonidine 0.1 mg 11/25/16 22:00 11/26/16 12:43 Catapres - PO 0.1 mg BID [facility] Administration Enalapril Maleate 5 mg 11/26/16 10:00 11/26/16 10:52 Vasotec - PO Not Given DAILY [facility] Morphine Sulfate 1 mg 11/26/16 11:24 Morphine Injection - IVPUSH Q4H PRN PAIN Pantoprazole Sodium 20 mg 11/26/16 10:00 11/26/16 12:41 Protonix - PO 20 mg DAILY [facility] Administration Sevelamer Carbonate 800 mg 11/25/16 17:30 11/26/16 12:41 Renvela - PO 800 mg TIDCM [facility] Administration Impression 1. ESRD 2. hyperkalemia 3. bleeding fistula 4. HTN 5. anemia 6. elevated amylase and lipase Plan - will dialyze pt again today for hyperkalemia - post HD potassium yesterday was stable - renal diet - vascular surgery follow up, discussed with PA, pt going for venogram - epogen for anemia - monitor blood pressure - HD Prescription :L3:30, opti 180 [id number], DW 43.5, AV fistula, epogen 6000, calcitriol 0.[address] Wright
--- NOTE | 2016-11-26 19:31 | HOSP ---
Subjective - Review of Symptoms Events since last encounter: Hospitalist Encounter Per RN patient reports having chest pain, s/p dialysis Ordered EKG and cardiac profile stat EKG reviewed TWI in lead I, precordial lead V6, change compared to prior study Trop I no change from baseline likely secondary to renal insufficiency Informed RN to place call to Dr. Gibson for recommendations Patient reports pain mild /10 Will continue to monitor Cardiovascular: Yes: Chest Pain Physical Examination Vital Signs: Vital Signs Temperature 98.5 F 11/26/16 14:00 Pulse Rate 60 11/26/16 18:50 Respiratory Rate 18 11/26/16 18:50 Blood Pressure 184/76 11/26/16 18:50 O2 Sat by Pulse Oximetry (%) 99 11/25/16 23:35 Cardiovascular: Yes: WNL, Regular Rate and Rhythm, S1, S2 Respiratory: Yes: WNL, Regular, CTA Bilaterally Extremities: Yes: Other (+thrill/bruit to upper arm fistula) Labs: CBC, BMP 11/26/16 07:20
[2016-11-26 19:39] LABS: ANION GAP 5 (8-16); CALCIUM 7.8 mg/dL (8.5-10.1); CO2 36 mmol/L (21-32); GLUCOSE,RANDOM 140 mg/dL (74-106)
[2016-11-26 21:03] LABS: TROPONIN I 0.15 ng/ml (0.00-0.05)
[2016-11-26] MEDS ORDERED: amLODIPine BESYLATE 10 MG TABLET (FP) PO ONE (21:45)
[2016-11-27 08:08] LABS: BASOPHIL 1.2 % (0-2.0); EOSINOPHIL 5.5 % (0-4.5); MCH 31.8 pg (25.7-33.7); MCHC 33.4 g/dl (32.0-36.0); MEAN CELL VOLUME 95.3 fl (80-96); MEAN PLT VOLUME 9.8 fl (7.5-11.1); NEUTROPHILS 57.2 % (42.8-82.8); PLATELET COUNT 119 K/MM3 (134-434); RDW 14.8 % (11.6-15.6); WHITE BLOOD COUNT 3.9 K/mm3 (4.0-10.0)
[2016-11-27 08:37] LABS: ALBUMIN 2.9 g/dl (3.4-5.0); ALK PHOS 122 U/L (45-117); ANION GAP 10 (8-16); BILIRUBIN,TOTAL 0.4 mg/dL (0.2-1.0); CALCIUM 8.6 mg/dL (8.5-10.1); CO2 33 mmol/L (21-32); CREATININE 5.2 mg/dL (0.55-1.02); GLUCOSE,RANDOM 84 mg/dL (74-106); SGOT/AST 21 U/L (15-37); SGPT/ALT 14 U/L (12-78); TOT PROT 5.6 g/dl (6.4-8.2)
[2016-11-27 08:40] LABS: TROPONIN I 0.13 ng/ml (0.00-0.05)
[2016-11-27] MEDS ORDERED: PT OWN MED DRAWER 7, Y5N ONE ×2 (10:06→21:23)
[2016-11-27] MEDS: ENALAPRIL MALEATE 5 MG TABLET (FP) PO SCH (10:08)
[2016-11-27] MEDS: PANTOPRAZOLE 20 MG TABLET (FP) PO SCH (10:08)
[2016-11-27] MEDS: cloNIDine HCL 0.1 MG TABLET PO SCH ×2 (10:08→22:36)
[2016-11-27] MEDS: SEVELAMER CARBONATE 800 MG TAB (FP) PO SCH ×2 (10:08→17:19)
[2016-11-27] MEDS: amLODIPine BESYLATE 10 MG TABLET (FP) PO SCH (10:08)
[2016-11-27] MEDS: CINACALCET HCL 30 MG TAB (FP) PO SCH (10:09)
[2016-11-27] MEDS: CALCITRIOL 0.25 MCG CAPSULE (FP) PO SCH (10:09)
[2016-11-27] MEDS ORDERED: HEPARIN NA (PORCINE) 5,000 UNITS/ML 1ML VIAL ONE (10:49)
[2016-11-27] MEDS ORDERED: LIDOCAINE HCL 1%, 10 MG/ML (20ML VIAL) ONE (10:49)
--- NOTE | 2016-11-27 11:17 | PN ---
Progress Note, Physician History of Present Illness: Pseudoaneurysm left AV fistula underwent placement covered stent AV fistula and venoplasty. Chest pain overnight, none now. - Current Medication List Current Medications: Active Medications Acetaminophen (Tylenol -) 650 mg PO Q4H PRN PRN Reason: FEVER OR PAIN Last Admin: 11/25/16 21:56 Dose: 650 mg Albuterol/Ipratropium (Duoneb -) 1 amp NEB Q6H PRN PRN Reason: SHORTNESS OF BREATH Amlodipine Besylate (Norvasc -) 10 mg PO DAILY [facility] Last Admin: 11/27/16 10:08 Dose: 10 mg Calcitriol (Rocaltrol -) 0.75 mcg PO Q2D [facility] Last Admin: 11/27/16 10:09 Dose: Not Given Cinacalcet (Sensipar -) 60 mg PO DAILY [facility] Last Admin: 11/27/16 10:09 Dose: Not Given Clonidine (Catapres -) 0.1 mg PO BID [facility] Last Admin: 11/27/16 10:08 Dose: 0.1 mg Enalapril Maleate (Vasotec -) 5 mg PO DAILY [facility] Last Admin: 11/27/16 10:08 Dose: 5 mg Morphine Sulfate (Morphine Injection -) 1 mg IVPUSH Q4H PRN PRN Reason: PAIN Pantoprazole Sodium (Protonix -) 20 mg PO DAILY [facility] Last Admin: 11/27/16 10:08 Dose: Not Given Sevelamer Carbonate (Renvela -) 800 mg PO TIDCM [facility] Last Admin: 11/27/16 10:08 Dose: Not Given - Objective Vital Signs: Vital Signs Temperature 98.1 F 11/27/16 05:48 Pulse Rate 67 11/27/16 05:48 Respiratory Rate 18 11/27/16 05:48 Blood Pressure 150/70 11/27/16 05:48 O2 Sat by Pulse Oximetry (%) 98 11/26/16 21:00 Constitutional: Yes: No Distress, Calm, Thin Neck: Yes: Supple Cardiovascular: Yes: Regular Rate and Rhythm Respiratory: Yes: Regular, CTA Bilaterally Gastrointestinal: Yes: Normal Bowel Sounds, Soft Edema: No Labs: CBC, BMP 11/27/16 05:35 11/27/16 05:35 INR, PTT INR 1.04 (0.82-1.09) 11/25/16 07:39 Problem List - Problems (1) HTN (hypertension) Code(s): I10 - ESSENTIAL (PRIMARY) HYPERTENSION Qualifiers: Hypertension type: essential hypertension Qualified Code(s): I10 - Essential (primary) hypertension (2) Hemodialysis access site with arteriovenous graft Code(s): Z99.2 - DEPENDENCE ON RENAL DIALYSIS (3) Hypercholesterolemia Code(s): E78.00 - PURE HYPERCHOLESTEROLEMIA, UNSPECIFIED (4) Hyperkalemia Code(s): E87.5 - HYPERKALEMIA (5) Bleeding from dialysis shunt Code(s): T82.838A - HEMORRHAGE DUE TO VASCULAR PROSTH DEV/GRFT, INIT Qualifiers: Encounter type: initial encounter Qualified Code(s): T82.838A - Hemorrhage due to vascular prosthetic devices, implants and grafts, initial encounter (6) ESRD (end stage renal disease) on dialysis Code(s): N18.6 - END STAGE RENAL DISEASE Z99.2 - DEPENDENCE ON RENAL DIALYSIS (7) Demand ischemia Code(s): I24.8 - OTHER FORMS OF ACUTE ISCHEMIC HEART DISEASE Assessment/Plan 11/27/2016 Normal LV size and fxn, mild cLVH, mild AR 1. Pseudoaneurysm left AV fistula s/p placement covered stent AV fistula, venoplasty 2. ESRD on HD with hyperkalemia 3. HTN 4. Hypercholesterolemia 5. Probable CAD - demand ischemia 6. Anemia of chronic kidney disease PLAN: 1. Trops have peaked 2. Continue Amlodipine 10 qd, Clonidine 0.1 bid and Vasotec 5 qd with uptitration as tolerated 3. HD per renal
[2016-11-27] MEDS ORDERED: MIDAZOLAM HCL 2 MG/2 ML SINGLE DOSE VIAL ONE ×2 (11:43→12:20)
[2016-11-27] MEDS ORDERED: CLINDAMYCIN PHOSPHATE 600 MG/4 ML VIAL IVPB ONE (12:00)
[2016-11-27] MEDS ORDERED: LIDOCAINE HCL 1%, 10 MG/ML (20ML VIAL) IJ ONE (12:25)
[2016-11-27] MEDS ORDERED: POVIDONE-IODINE OINTMENT 10% - 28.4 GM TUBE ONE (12:57)
--- NOTE | 2016-11-27 13:06 | OP ---
Operative Note - Note: Operative Date: 11/27/16 Pre-Operative Diagnosis: Pseudoaneurysm left arm AV fistula Operation: Placement covered stent AV fistula, venoplasty Findings: Cephalic vein fistula with indwelling stent. Small area of leak communicating with cutaneous wound and pseudoaneurysm. Implants: 7 mm x 5 cm Viabahn stent graft Post-Operative Diagnosis: Same as Pre-op Surgeon: Antoine Lopez Anesthesiologist/SUPERVISOR TOWER: Andria Phan MD Anesthesia: Fractional
--- NOTE | 2016-11-27 13:29 | PN ---
Progress Note (short form) - Note Progress Note: Right femoral catheter removed. Pressure held for 10 minutes without any evidence of bleeding/hematoma. Pressure dressing applied. s/p stent placement in pseudoaneurysm of left AVF. Sites marked where may place needles for HD tomorrow.
[2016-11-27] MEDS ORDERED: ACETAMINOPHEN 325 MG TABLET (FP) PO PRN (14:00)
[2016-11-27] MEDS ORDERED: morphine CARPU-JECT 2 MG/1 ML DISP.SYRIN IVPUSH PRN (14:00)
[2016-11-27] MEDS ORDERED: ALBUTEROL SO4 2.5/IPRATROPIUM 0.5 INH SOL 3 ML VIAL.NEB. NEB PRN (14:00)
--- NOTE | 2016-11-27 14:21 | OP ---
DATE OF OPERATION: 11/27/2016 PROCEDURE: Placement of endovascular stent graft left arm arteriovenous fistula. PREOPERATIVE DIAGNOSIS: Bleeding from arteriovenous fistula with pseudoaneurysm. POSTOPERATIVE DIAGNOSIS: Bleeding from arteriovenous fistula with pseudoaneurysm. ANESTHESIA: Fractional. ANESTHESIOLOGIST: . OPERATIVE FINDINGS: The left brachiocephalic fistula was patent. There was a small open wound alongside the fistula in the distal upper arm. The wound was pulsatile. Venography revealed an in-dwelling stent underneath this area with a small area of extravasation from the lumen of the vessel. The proximal vein was stenotic alongside the stent but patent proximally with no evidence of central vein stenosis. The distal vein had moderate stenosis. PROCEDURE IN DETAIL: Following routine patient identification with site and side verification, intravenous sedation was established. The left arm was prepped with Betadine solution with care not to disturb the clot overlying the wound. Xylocaine 1% was infiltrated over the distal end of the fistula and was cannulated with a micropuncture needle. Wire was passed proximally and a 5-[place] catheter exchanged over the wire. Venography was then performed with the above-noted findings. Decision was made to try to salvage the fistula with a covered stent. A 7-[place]ese sheath was then exchanged over a wire and a 0.018-inch wire was advanced proximally under fluoroscopic guidance. A 7-mm x 5-cm Viabahn covered stent was then deployed within the preexisting stent and post dilated with a 7-mm balloon. Repeat imaging revealed no further extravasation. The proximal vein stenosis was then dilated with an 8-mm balloon using a pressure insufflator. Completion imaging revealed a patent fistula with no residual stenosis. With the balloon inflated visualization of the distal fistula was carried out with areas of moderate but not severe stenosis. The sheath was then remove and bleeding controlled with a mattress suture of 3-0 nylon. Xylocaine was infiltrated around the wound alongside the fistula and the thrombus and skin edges were debrided sharply with a 15 scalpel. A culture was taken then the skin edges were approximated with mattress suture of 3-0 nylon. Sterile dressings were applied and the patient was taken to the recovery room in stable condition. Carley [id number]
--- NOTE | 2016-11-27 18:54 | PN ---
Physical Exam: SUBJECTIVE: Patient seen and examined at bedside. OBJECTIVE: Vital Signs Period Temp Pulse Resp BP Sys/Angel Pulse Ox Last 24 Hr 97.7 F-98.5 F 51-67 10-18 104-171/41-83 98-100 GENERAL: The patient is awake, alert, and fully oriented, in no acute distress. LUNGS: Breath sounds equal, clear to auscultation bilaterally, no wheezes, no crackles, no accessory muscle use. HEART: Regular rate and rhythm, S1, S2 without murmur, rub or gallop. ABDOMEN: Soft, nontender, nondistended, normoactive bowel sounds, no guarding, no rebound, no hepatosplenomegaly, no masses. LEFT UPPER EXTREMITY: AV fistula +thrill +bruit; no erythema, no edema, no bleeding; 2+ radial pulse, limb is warm, well-perfused RIGHT UPPER EXTREMITY: 2+ pulses, warm, well-perfused, no edema LOWER EXTREMITIES: 2+ pulses, warm, well-perfused, no edema. NEUROLOGICAL: Cranial nerves II through XII grossly intact. Normal speech, gait not observed. Laboratory Results - last 24 hr 11/25/16 11/26/16 11/26/16 21:00 18:30 20:10 WBC RBC Hgb Hct MCV MCHC RDW Plt Count MPV Neutrophils % Lymphocytes % Monocytes % Eosinophils % Basophils % Sodium 140 Potassium 3.1 L D Chloride 99 Carbon Dioxide 36 H Anion Gap 5 L BUN 12 D Creatinine 2.0 H D Creat Clearance w eGFR POC Glucometer Random Glucose 140 H D Calcium 7.8 L Total Bilirubin AST ALT Alkaline Phosphatase Creatine Kinase 112 Troponin I 0.15 H Total Protein Albumin Hepatitis C Antibody <0.1 11/26/16 11/27/16 11/27/16 21:35 05:35 05:35 WBC 3.9 L RBC 3.26 L Hgb 10.4 L D Hct 31.1 L MCV 95.3 MCHC 33.4 RDW 14.8 Plt Count 119 L D MPV 9.8 Neutrophils % 57.2 D Lymphocytes % 29.2 D Monocytes % 6.9 Eosinophils % 5.5 H Basophils % 1.2 Sodium 141 Potassium 5.3 H D Chloride 98 Carbon Dioxide 33 H Anion Gap 10 BUN 26 H D Creatinine 5.2 H D Creat Clearance w eGFR 8.69 POC Glucometer 130 Random Glucose 84 D Calcium 8.6 Total Bilirubin 0.4 AST 21 ALT 14 D Alkaline Phosphatase 122 H Creatine Kinase Troponin I Total Protein 5.6 L Albumin 2.9 L Hepatitis C Antibody 11/27/16 11/27/16 05:35 05:47 WBC RBC Hgb Hct MCV MCHC RDW Plt Count MPV Neutrophils % Lymphocytes % Monocytes % Eosinophils % Basophils % Sodium Potassium Chloride Carbon Dioxide Anion Gap BUN Creatinine Creat Clearance w eGFR POC Glucometer 99 Random Glucose Calcium Total Bilirubin AST ALT Alkaline Phosphatase Creatine Kinase 88 Troponin I 0.13 H Total Protein Albumin Hepatitis C Antibody Active Medications Generic Name Dose Route Start Last Admin Trade Name Freq PRN Reason Stop Dose Admin Acetaminophen 650 mg 11/27/16 14:00 Tylenol - PO Q4H PRN FEVER OR PAIN Albuterol/Ipratropium 1 amp 11/27/16 14:00 Duoneb - NEB Q6H PRN SHORTNESS OF BREATH Amlodipine Besylate 10 mg 11/28/16 10:00 Norvasc - PO DAILY [facility] Calcitriol 0.75 mcg 11/28/16 10:00 Rocaltrol - PO Q2D [facility] Cinacalcet 60 mg 11/28/16 10:00 Sensipar - PO DAILY [facility] Clonidine 0.1 mg 11/27/16 22:00 Catapres - PO BID [facility] Enalapril Maleate 5 mg 11/28/16 10:00 Vasotec - PO DAILY [facility] Morphine Sulfate 1 mg 11/27/16 14:00 Morphine Injection - IVPUSH Q4H PRN PAIN Pantoprazole Sodium 20 mg 11/28/16 10:00 Protonix - PO DAILY [facility] Sevelamer Carbonate 800 mg 11/27/16 17:30 11/27/16 17:19 Renvela - PO 800 mg TIDCM [facility] Administration ASSESSMENT/PLAN 51 year-old female with a significant PMH of ESRD on HD (M,W,F). She presented to the ER on 11/25/2016 with complaint of bleeding from her left upper arm fistula. ESRD on HD Pseudoaneurysm left arm AV fistula --today underwent venoplasty and placement of covered stent --will need vanco with HD x 1 week --first dose vanco tonight --HD tomorrow, Dr. Wright following Elevated Troponins --flat-trending likely secondary to renal failure Hypertension --continue amlodipine, clonidine, enalapril Hyperlipidemia --on no meds Anemia of chronic disease --epogen F/E/N Fluids: PO intake adequate Electrolytes: replete as indicated Nutrition: renal diet DVT prophylaxis: no chemical a/c secondary to bleeding; SCDs, oob, ambulation Dispo: HD tomorrow. Continues to require inpatient care. Full code. Visit type - Emergency Visit Emergency Visit: Yes ED Registration Date: 11/25/16 Care time: The patient presented to the Emergency Department on the above date and was hospitalized for further evaluation of their emergent condition. - New Patient This patient is new to me today: Yes Date on this admission: 11/28/16 - Critical Care Critical Care patient: No
[2016-11-27] MEDS ORDERED: VANCOMYCIN 750 MG in DEXTROSE 5%-WATER - 250 ML IVPB ONE (19:00)
--- NOTE | 2016-11-27 21:19 | PN ---
Progress Note, Physician History of Present Illness: Pt seen and examined at bedside. She had a venogram and had a stent placed in her fistula today. - Current Medication List Current Medications: Active Medications Acetaminophen (Tylenol -) 650 mg PO Q4H PRN PRN Reason: FEVER OR PAIN Albuterol/Ipratropium (Duoneb -) 1 amp NEB Q6H PRN PRN Reason: SHORTNESS OF BREATH Amlodipine Besylate (Norvasc -) 10 mg PO DAILY [facility] Calcitriol (Rocaltrol -) 0.75 mcg PO Q2D [facility] Cinacalcet (Sensipar -) 60 mg PO DAILY [facility] Clonidine (Catapres -) 0.1 mg PO BID [facility] Enalapril Maleate (Vasotec -) 5 mg PO DAILY [facility] Morphine Sulfate (Morphine Injection -) 1 mg IVPUSH Q4H PRN PRN Reason: PAIN Pantoprazole Sodium (Protonix -) 20 mg PO DAILY [facility] Sevelamer Carbonate (Renvela -) 800 mg PO TIDCM [facility] Last Admin: 11/27/16 17:19 Dose: 800 mg - Objective Vital Signs: Vital Signs Temperature 98.3 F 11/27/16 15:00 Pulse Rate 55 L 11/27/16 15:00 Respiratory Rate 18 11/27/16 15:00 Blood Pressure 142/55 11/27/16 15:00 O2 Sat by Pulse Oximetry (%) 98 11/27/16 14:15 Constitutional: Yes: Calm Eyes: Yes: Conjunctiva Clear HENT: Yes: Atraumatic Neck: Yes: Supple Cardiovascular: Yes: S1, S2 Respiratory: Yes: CTA Bilaterally Gastrointestinal: Yes: Soft Musculoskeletal: Yes: WNL Edema: No Neurological: Yes: Oriented Psychiatric: Yes: Oriented Labs: CBC, BMP 11/27/16 05:35 11/27/16 05:35 INR, PTT INR 1.04 (0.82-1.09) 11/25/16 07:39 Problem List - Problems (1) ESRD (end stage renal disease) Code(s): N18.6 - END STAGE RENAL DISEASE (2) Hyperkalemia Code(s): E87.5 - HYPERKALEMIA (3) Bleeding from dialysis shunt Code(s): T82.838A - HEMORRHAGE DUE TO VASCULAR PROSTH DEV/GRFT, INIT Qualifiers: Encounter type: initial encounter Qualified Code(s): T82.838A - Hemorrhage due to vascular prosthetic devices, implants and grafts, initial encounter Assessment/Plan Current Medications Generic Name Dose Route Start Last Admin Trade Name Freq PRN Reason Stop Dose Admin Acetaminophen 650 mg 11/27/16 14:00 Tylenol - PO Q4H PRN FEVER OR PAIN Albuterol/Ipratropium 1 amp 11/27/16 14:00 Duoneb - NEB Q6H PRN SHORTNESS OF BREATH Amlodipine Besylate 10 mg 11/28/16 10:00 Norvasc - PO DAILY [facility] Calcitriol 0.75 mcg 11/28/16 10:00 Rocaltrol - PO Q2D [facility] Cinacalcet 60 mg 11/28/16 10:00 Sensipar - PO DAILY [facility] Clonidine 0.1 mg 11/27/16 22:00 Catapres - PO BID [facility] Enalapril Maleate 5 mg 11/28/16 10:00 Vasotec - PO DAILY [facility] Morphine Sulfate 1 mg 11/27/16 14:00 Morphine Injection - IVPUSH Q4H PRN PAIN Pantoprazole Sodium 20 mg 11/28/16 10:00 Protonix - PO DAILY [facility] Sevelamer Carbonate 800 mg 11/27/16 17:30 11/27/16 17:19 Renvela - PO 800 mg TIDCM [facility] Administration Impression 1. ESRD 2. hyperkalemia 3. bleeding fistula 4. HTN 5. anemia 6. elevated amylase and lipase Plan - will arrange for HD in am - pt had fistula repaired today - discussed with vascular, will need abx for one week - discussed with medical team - renal diet - epogen for anemia - monitor blood pressure - will need to increase HD time - HD Prescription :3:30, opti 180 [id number], DW 43.5, AV fistula, epogen 6000, calcitriol 0.[address] Wright
[2016-11-28 00:06] LABS: HEP B SURFACE AB Reactive (.)
[2016-11-28 07:44] LABS: ANION GAP 12 (8-16); CALCIUM 8.5 mg/dL (8.5-10.1); CO2 29 mmol/L (21-32); GLUCOSE,RANDOM 88 mg/dL (74-106); MAGNESIUM 2.3 mg/dL (1.8-2.4); SGOT/AST 21 U/L (15-37); SGPT/ALT 15 U/L (12-78)
[2016-11-28 07:52] LABS: ALK PHOS 120 U/L (45-117); BILIRUBIN,TOTAL 0.4 mg/dL (0.2-1.0); TOT PROT 5.7 g/dl (6.4-8.2)
[2016-11-28 07:53] LABS: BASOPHIL 1.4 % (0-2.0); EOSINOPHIL 6.2 % (0-4.5); MCH 31.9 pg (25.7-33.7); MCHC 33.6 g/dl (32.0-36.0); MEAN PLT VOLUME 9.7 fl (7.5-11.1); NEUTROPHILS 60.7 % (42.8-82.8); PLATELET COUNT 123 K/MM3 (134-434); RDW 14.8 % (11.6-15.6); WHITE BLOOD COUNT 4.4 K/mm3 (4.0-10.0)
[2016-11-28 08:44] LABS: CREATININE 8.5 mg/dL (0.55-1.02)
[2016-11-28] MEDS ORDERED: CALCITRIOL 0.25 MCG CAPSULE (FP) PO SCH (10:00)
--- NOTE | 2016-11-28 11:16 | EKG ---
Test Reason : Blood Pressure : / mmHG Vent. Rate : 063 BPM Atrial Rate : 063 BPM P-R Int : 134 ms QRS Dur : 098 ms QT Int : 456 ms P-R-T Axes : -08 -01 129 degrees QTc Int : 466 ms NORMAL SINUS RHYTHM MINIMAL VOLTAGE CRITERIA FOR LVH, MAY BE NORMAL VARIANT PROLONGED QT ABNORMAL ECG WHEN COMPARED WITH ECG OF 25-NOV-2016 10:35, T WAVE INVERSION MORE EVIDENT IN LATERAL LEADS Confirmed by RYAN TRIMBLE, CLAUDIA ([id number]) on 11/28/2016 11:16:04 AM Referred By: Confirmed By:CLAUDIA DAVIS MD
--- NOTE | 2016-11-28 11:40 | PN ---
Progress Note, Physician History of Present Illness: Pseudoaneurysm left AV fistula underwent placement covered stent AV fistula and venoplasty. Tolerating HD via revised AV fistula.. - Current Medication List Current Medications: Active Medications Acetaminophen (Tylenol -) 650 mg PO Q4H PRN PRN Reason: FEVER OR PAIN Albuterol/Ipratropium (Duoneb -) 1 amp NEB Q6H PRN PRN Reason: SHORTNESS OF BREATH Amlodipine Besylate (Norvasc -) 10 mg PO DAILY [facility] Calcitriol (Rocaltrol -) 0.75 mcg PO Q2D [facility] Cinacalcet (Sensipar -) 60 mg PO DAILY [facility] Clonidine (Catapres -) 0.1 mg PO BID [facility] Last Admin: 11/27/16 22:36 Dose: 0.1 mg Enalapril Maleate (Vasotec -) 5 mg PO DAILY [facility] Epoetin Joshua (Procrit -) 6,000 unit IVPUSH ONCE ONE Stop: 11/28/16 21:21 Morphine Sulfate (Morphine Injection -) 1 mg IVPUSH Q4H PRN PRN Reason: PAIN Pantoprazole Sodium (Protonix -) 20 mg PO DAILY [facility] Sevelamer Carbonate (Renvela -) 800 mg PO TIDCM [facility] Last Admin: 11/27/16 17:19 Dose: 800 mg - Objective Vital Signs: Vital Signs Temperature 98.8 F 11/28/16 06:00 Pulse Rate 59 L 11/28/16 06:00 Respiratory Rate 18 11/28/16 06:00 Blood Pressure 136/56 11/28/16 06:00 O2 Sat by Pulse Oximetry (%) 98 11/27/16 21:00 Constitutional: Yes: No Distress, Calm, Thin Neck: Yes: Supple Cardiovascular: Yes: Regular Rate and Rhythm Respiratory: Yes: Regular, CTA Bilaterally Gastrointestinal: Yes: Normal Bowel Sounds, Soft Edema: No Labs: CBC, BMP 11/28/16 06:20 11/28/16 06:20 INR, PTT INR 1.04 (0.82-1.09) 11/25/16 07:39 Problem List - Problems (1) HTN (hypertension) Code(s): I10 - ESSENTIAL (PRIMARY) HYPERTENSION Qualifiers: Hypertension type: essential hypertension Qualified Code(s): I10 - Essential (primary) hypertension (2) Hemodialysis access site with arteriovenous graft Code(s): Z99.2 - DEPENDENCE ON RENAL DIALYSIS (3) Hypercholesterolemia Code(s): E78.00 - PURE HYPERCHOLESTEROLEMIA, UNSPECIFIED (4) Hyperkalemia Code(s): E87.5 - HYPERKALEMIA (5) Bleeding from dialysis shunt Code(s): T82.838A - HEMORRHAGE DUE TO VASCULAR PROSTH DEV/GRFT, INIT Qualifiers: Encounter type: initial encounter Qualified Code(s): T82.838A - Hemorrhage due to vascular prosthetic devices, implants and grafts, initial encounter (6) ESRD (end stage renal disease) on dialysis Code(s): N18.6 - END STAGE RENAL DISEASE Z99.2 - DEPENDENCE ON RENAL DIALYSIS (7) Demand ischemia Code(s): I24.8 - OTHER FORMS OF ACUTE ISCHEMIC HEART DISEASE Assessment/Plan 11/27/2016 Normal LV size and fxn, mild cLVH, mild AR 1. Pseudoaneurysm left AV fistula s/p placement covered stent AV fistula and venoplasty 2. ESRD on HD with hyperkalemia 3. HTN 4. Hypercholesterolemia 5. Probable CAD - demand ischemia 6. Anemia of chronic kidney disease PLAN: 1. Continue Amlodipine 10 qd, Clonidine 0.1 bid and Vasotec 5 qd with uptitration as tolerated 2. HD per renal, empiric abx for 1 week post-op
[2016-11-28] MEDS: SEVELAMER CARBONATE 800 MG TAB (FP) PO SCH ×3 (11:44→18:28)
[2016-11-28] MEDS: PANTOPRAZOLE 20 MG TABLET (FP) PO SCH (11:44)
[2016-11-28] MEDS: amLODIPine BESYLATE 10 MG TABLET (FP) PO SCH ×2 (11:44→18:27)
[2016-11-28] MEDS: ENALAPRIL MALEATE 5 MG TABLET (FP) PO SCH ×2 (11:45→18:28)
[2016-11-28] MEDS: CINACALCET HCL 30 MG TAB (FP) PO SCH (11:45)
[2016-11-28] MEDS: cloNIDine HCL 0.1 MG TABLET PO SCH ×2 (12:23→22:00)
--- NOTE | 2016-11-28 13:39 | PN ---
Progress Note, Physician History of Present Illness: Pt seen and examined at bedside. She is awake and alert. - Current Medication List Current Medications: Active Medications Acetaminophen (Tylenol -) 650 mg PO Q4H PRN PRN Reason: FEVER OR PAIN Albuterol/Ipratropium (Duoneb -) 1 amp NEB Q6H PRN PRN Reason: SHORTNESS OF BREATH Amlodipine Besylate (Norvasc -) 10 mg PO DAILY [facility] Last Admin: 11/28/16 11:44 Dose: Not Given Calcitriol (Rocaltrol -) 0.75 mcg PO Q2D [facility] Last Admin: 11/28/16 11:44 Dose: Not Given Cinacalcet (Sensipar -) 60 mg PO DAILY [facility] Last Admin: 11/28/16 11:45 Dose: Not Given Clonidine (Catapres -) 0.1 mg PO BID [facility] Last Admin: 11/28/16 12:23 Dose: Not Given Enalapril Maleate (Vasotec -) 5 mg PO DAILY [facility] Last Admin: 11/28/16 11:45 Dose: Not Given Epoetin Joshua (Procrit -) 6,000 unit IVPUSH ONCE ONE Stop: 11/28/16 21:21 Morphine Sulfate (Morphine Injection -) 1 mg IVPUSH Q4H PRN PRN Reason: PAIN Pantoprazole Sodium (Protonix -) 20 mg PO DAILY [facility] Last Admin: 11/28/16 11:44 Dose: Not Given Sevelamer Carbonate (Renvela -) 800 mg PO TIDCM [facility] Last Admin: 11/28/16 12:24 Dose: Not Given - Objective Vital Signs: Vital Signs Temperature 98.7 F 11/28/16 10:00 Pulse Rate 62 11/28/16 10:00 Respiratory Rate 18 11/28/16 10:00 Blood Pressure 150/73 11/28/16 10:00 O2 Sat by Pulse Oximetry (%) 98 11/27/16 21:00 Constitutional: Yes: Calm Eyes: Yes: Conjunctiva Clear HENT: Yes: Atraumatic Neck: Yes: Supple Cardiovascular: Yes: S1, S2 Respiratory: Yes: CTA Bilaterally Gastrointestinal: Yes: Normal Bowel Sounds, Soft Genitourinary: Yes: WNL Musculoskeletal: Yes: WNL Edema: No Neurological: Yes: Oriented Psychiatric: Yes: Oriented Labs: CBC, BMP 11/28/16 06:20 06/29/17 06:20 INR, PTT INR 1.04 (0.82-1.09) 11/25/16 07:39 Problem List - Problems (1) ESRD (end stage renal disease) Code(s): N18.6 - END STAGE RENAL DISEASE (2) Hyperkalemia Code(s): E87.5 - HYPERKALEMIA (3) Bleeding from dialysis shunt Code(s): T82.838A - HEMORRHAGE DUE TO VASCULAR PROSTH DEV/GRFT, INIT Qualifiers: Encounter type: initial encounter Qualified Code(s): T82.838A - Hemorrhage due to vascular prosthetic devices, implants and grafts, initial encounter Assessment/Plan Current Medications Generic Name Dose Route Start Last Admin Trade Name Freq PRN Reason Stop Dose Admin Acetaminophen 650 mg 11/27/16 14:00 Tylenol - PO Q4H PRN FEVER OR PAIN Albuterol/Ipratropium 1 amp 11/27/16 14:00 Duoneb - NEB Q6H PRN SHORTNESS OF BREATH Amlodipine Besylate 10 mg 11/28/16 10:00 11/28/16 11:44 Norvasc - PO Not Given DAILY [facility] Calcitriol 0.75 mcg 11/28/16 10:00 11/28/16 11:44 Rocaltrol - PO Not Given Q2D [facility] Cinacalcet 60 mg 11/28/16 10:00 11/28/16 11:45 Sensipar - PO Not Given DAILY [facility] Clonidine 0.1 mg 11/27/16 22:00 11/28/16 12:23 Catapres - PO Not Given BID [facility] Enalapril Maleate 5 mg 11/28/16 10:00 11/28/16 11:45 Vasotec - PO Not Given DAILY [facility] Epoetin Joshua 6,000 unit 11/28/16 21:20 Procrit - IVPUSH 11/28/16 21:21 ONCE ONE Morphine Sulfate 1 mg 11/27/16 14:00 Morphine Injection - IVPUSH Q4H PRN PAIN Pantoprazole Sodium 20 mg 11/28/16 10:00 11/28/16 11:44 Protonix - PO Not Given DAILY [facility] Sevelamer Carbonate 800 mg 11/27/16 17:30 11/28/16 12:24 Renvela - PO Not Given TIDCM [facility] Impression 1. ESRD 2. hyperkalemia 3. bleeding fistula 4. HTN 5. anemia 6. elevated amylase and lipase Plan - HD today - called HD unit to increase time - abx for next week - vascular surgery outpt - epogen for anemia - monitor blood pressure - will need to increase HD time - HD Prescription :3:30, opti 180 [id number], DW 43.5, AV fistula, epogen 6000, calcitriol 0.[address] Wright
--- NOTE | 2016-11-28 13:59 | PN ---
Progress Note (short form) - Note Progress Note: Anesthesia postop note 51 y/o F s/p MAC for av graft stenting, resection of ulcerated pseudoaneurism POD#1, vss, aaox3, having HD now No anesthesia complications.
[2016-11-28] MEDS ORDERED: EPOETIN ALFA 3,000 UNIT/1 ML ML IVPUSH ONE (15:00)
[2016-11-28 15:31] LABS: MCH 31.7 pg (25.7-33.7); MCHC 33.3 g/dl (32.0-36.0); MEAN CELL VOLUME 95.2 fl (80-96); MEAN PLT VOLUME 10.1 fl (7.5-11.1); PLATELET COUNT 133 K/MM3 (134-434); RDW 15.2 % (11.6-15.6); WHITE BLOOD COUNT 4.1 K/mm3 (4.0-10.0)
[2016-11-28] MEDS ORDERED: PT OWN MED DRAWER 7, Y5N ONE ×2 (18:26→21:48)
--- NOTE | 2016-11-28 19:09 | PN ---
Physical Exam: SUBJECTIVE: Patient seen and examined in HD suite. Just finished dialysis. Has pain at fistula site. OBJECTIVE: Vital Signs Period Temp Pulse Resp BP Sys/Angel Pulse Ox Last 24 Hr 97.6 F-98.8 F 59-81 18-19 127-183/52-78 98-98 GENERAL: The patient is awake, alert, and fully oriented, in no acute distress. LUNGS: Breath sounds equal, clear to auscultation bilaterally, no wheezes, no crackles, no accessory muscle use. HEART: Regular rate and rhythm, S1, S2 without murmur, rub or gallop. ABDOMEN: Soft, nontender, nondistended, normoactive bowel sounds, no guarding, no rebound, no hepatosplenomegaly, no masses. LEFT UPPER EXTREMITY: AV fistula +thrill +bruit; no erythema, no edema, no bleeding; 2+ radial pulse, limb is warm, well-perfused RIGHT UPPER EXTREMITY: 2+ pulses, warm, well-perfused, no edema LOWER EXTREMITIES: 2+ pulses, warm, well-perfused, no edema. NEUROLOGICAL: Cranial nerves II through XII grossly intact. Normal speech, gait not observed. Laboratory Results - last 24 hr 11/25/16 11/28/16 11/28/16 21:00 06:20 06:20 WBC 4.4 RBC 3.27 L Hgb 10.4 L Hct 31.1 L MCV 95.0 MCHC 33.6 RDW 14.8 Plt Count 123 L MPV 9.7 Neutrophils % 60.7 Lymphocytes % 24.0 Monocytes % 7.7 Eosinophils % 6.2 H Basophils % 1.4 Sodium Potassium Chloride Carbon Dioxide Anion Gap BUN Creatinine Creat Clearance w eGFR Random Glucose Calcium Magnesium Total Bilirubin AST ALT Alkaline Phosphatase Total Protein Albumin Random Vancomycin 17.783 Hep A IgM Ab Confirm Negative Hepatitis A Ab Total Positive H Hep Bs Antigen Negative Hep Bs Antibody Reactive Hep B Core Total Ab Negative Hepatitis C Antibody <0.1 11/28/16 11/28/16 06:20 14:30 WBC 4.1 RBC 3.14 L Hgb 10.0 L Hct 29.9 L MCV 95.2 MCHC 33.3 RDW 15.2 Plt Count 133 L MPV 10.1 Neutrophils % Lymphocytes % Monocytes % Eosinophils % Basophils % Sodium 138 Potassium 6.4 H* D Chloride 97 L Carbon Dioxide 29 Anion Gap 12 BUN 55 H D Creatinine 8.5 H* D Creat Clearance w eGFR 4.93 Random Glucose 88 Calcium 8.5 Magnesium 2.3 Total Bilirubin 0.4 AST 21 ALT 15 Alkaline Phosphatase 120 H Total Protein 5.7 L Albumin 3.0 L Random Vancomycin Hep A IgM Ab Confirm Hepatitis A Ab Total Hep Bs Antigen Hep Bs Antibody Hep B Core Total Ab Hepatitis C Antibody Active Medications Generic Name Dose Route Start Last Admin Trade Name Freq PRN Reason Stop Dose Admin Acetaminophen 650 mg 11/27/16 14:00 Tylenol - PO Q4H PRN FEVER OR PAIN Albuterol/Ipratropium 1 amp 11/27/16 14:00 Duoneb - NEB Q6H PRN SHORTNESS OF BREATH Amlodipine Besylate 10 mg 11/28/16 10:00 11/28/16 18:27 Norvasc - PO 10 mg DAILY [facility] Administration Calcitriol 0.75 mcg 11/28/16 10:00 11/28/16 11:44 Rocaltrol - PO Not Given Q2D [facility] Cinacalcet 60 mg 11/28/16 10:00 11/28/16 11:45 Sensipar - PO Not Given DAILY [facility] Clonidine 0.1 mg 11/27/16 22:00 11/28/16 12:23 Catapres - PO Not Given BID [facility] Enalapril Maleate 5 mg 11/28/16 10:00 11/28/16 18:28 Vasotec - PO 5 mg DAILY [facility] Administration Morphine Sulfate 1 mg 11/27/16 14:00 Morphine Injection - IVPUSH Q4H PRN PAIN Pantoprazole Sodium 20 mg 11/28/16 10:00 11/28/16 11:44 Protonix - PO Not Given DAILY [facility] Sevelamer Carbonate 800 mg 11/27/16 17:30 11/28/16 18:28 Renvela - PO 800 mg TIDCM [facility] Administration ASSESSMENT/PLAN 51 year-old female with a significant PMH of ESRD on HD (M,W,F). She presented to the ER on 11/25/2016 with complaint of bleeding from her left upper arm fistula. ESRD on HD Pseudoaneurysm left arm AV fistula --had HD today, some pain at fistula site; no bleeding, erythema --aparently did not get vanco today with HD, will discuss with Dr. Samarneh Elevated Troponins --flat-trending likely secondary to renal failure Hypertension --continue amlodipine, clonidine, enalapril Hyperlipidemia --on no meds Anemia of chronic disease --epogen F/E/N Fluids: PO intake adequate Electrolytes: replete as indicated Nutrition: renal diet DVT prophylaxis: no chemical a/c secondary to bleeding; SCDs, oob, ambulation Visit type - Emergency Visit Emergency Visit: Yes ED Registration Date: 11/25/16 Care time: The patient presented to the Emergency Department on the above date and was hospitalized for further evaluation of their emergent condition. - New Patient This patient is new to me today: No - Critical Care Critical Care patient: No
[2016-11-29] MEDS: SEVELAMER CARBONATE 800 MG TAB (FP) PO SCH ×3 (08:15→17:21)
[2016-11-29] MEDS ORDERED: PT OWN MED DRAWER 7, Y5N ONE (09:42)
[2016-11-29] MEDS: PANTOPRAZOLE 20 MG TABLET (FP) PO SCH (09:45)
[2016-11-29] MEDS: cloNIDine HCL 0.1 MG TABLET PO SCH (09:45)
[2016-11-29] MEDS: CINACALCET HCL 30 MG TAB (FP) PO SCH (09:46)
[2016-11-29] MEDS: ENALAPRIL MALEATE 5 MG TABLET (FP) PO SCH (09:46)
[2016-11-29] MEDS: amLODIPine BESYLATE 10 MG TABLET (FP) PO SCH (09:46)
[2016-11-29] MEDS ORDERED: EPOETIN ALFA 2,000 UNITS/1 ML VIAL IVPUSH ONE (10:17)
[2016-11-29] MEDS ORDERED: VANCOMYCIN 1 GRAM (PRE-DOCKED) 1,000 MG/250 ML BAG IVPB ONE ×2 (10:21→12:45)
--- NOTE | 2016-11-29 11:02 | DS ---
Physical Exam: SUBJECTIVE: Patient seen and examined OBJECTIVE: Vital Signs Period Temp Pulse Resp BP Sys/Angel Pulse Ox Last 24 Hr 97.6 F-98.8 F 59-81 18-18 127-183/52-80 98 PHYSICAL EXAM GENERAL: The patient is awake, alert, and fully oriented, in no acute distress. LUNGS: Breath sounds equal, clear to auscultation bilaterally, no wheezes, no crackles, no accessory muscle use. HEART: Regular rate and rhythm, S1, S2 without murmur, rub or gallop. ABDOMEN: Soft, nontender, nondistended, normoactive bowel sounds, no guarding, no rebound, no hepatosplenomegaly, no masses. LEFT UPPER EXTREMITY: AV fistula +thrill +bruit; no erythema, no edema, no bleeding; 2+ radial pulse, limb is warm, well-perfused RIGHT UPPER EXTREMITY: 2+ pulses, warm, well-perfused, no edema LOWER EXTREMITIES: 2+ pulses, warm, well-perfused, no edema. NEUROLOGICAL: Cranial nerves II through XII grossly intact. Normal speech, gait not observed. LABS CBCD WBC 4.1 K/mm3 (4.0-10.0) 11/28/16 14:30 RBC 3.14 M/mm3 (3.60-5.2) L 11/28/16 14:30 Hgb 10.0 GM/dL (10.7-15.3) L 11/28/16 14:30 Hct 29.9 % (32.4-45.2) L 11/28/16 14:30 MCV 95.2 fl (80-96) 11/28/16 14:30 MCHC 33.3 g/dl (32.0-36.0) 11/28/16 14:30 RDW 15.2 % (11.6-15.6) 11/28/16 14:30 Plt Count 133 K/MM3 (134-434) L 11/28/16 14:30 MPV 10.1 fl (7.5-11.1) 11/28/16 14:30 CMP Sodium 137 mmol/L (136-145) 11/29/16 13:00 Potassium 4.9 mmol/L (3.5-5.1) D 11/29/16 13:00 Chloride 94 mmol/L (98-107) L 11/29/16 13:00 Carbon Dioxide 34 mmol/L (21-32) H 11/29/16 13:00 Anion Gap 9 (8-16) 11/29/16 13:00 BUN 38 mg/dL (7-18) H D 11/29/16 13:00 Creatinine 5.8 mg/dL (0.55-1.02) H D 11/29/16 13:00 Creat Clearance w eGFR 4.93 (>60) 11/28/16 06:20 Calcium 8.8 mg/dL (8.5-10.1) 11/29/16 13:00 Total Bilirubin 0.4 mg/dL (0.2-1.0) 11/28/16 06:20 AST 21 U/L (15-37) 11/28/16 06:20 ALT 15 U/L (12-78) 11/28/16 06:20 Alkaline Phosphatase 120 U/L (45-117) H 11/28/16 06:20 Total Protein 5.7 g/dl (6.4-8.2) L 11/28/16 06:20 Albumin 3.0 g/dl (3.4-5.0) L 11/28/16 06:20 HOSPITAL COURSE: Date of Admission:11/25/16 Date of Discharge: 11/29/16 ASSESSMENT/PLAN 51 year-old female with a significant PMH of ESRD on HD (M,W,F). She presented to the ER on 11/25/2016 with complaint of bleeding from her left upper arm fistula. ESRD on HD Pseudoaneurysm left arm AV fistula --on 11/27 underwent venoplasty and placement of covered stent --had HD yesterday and again today, some pain at fistula site; no bleeding, erythema --will get Vanco with HD x 1 week to be arranged by Dr. Wright Elevated Troponins --flat-trending likely secondary to renal failure Hypertension --continued amlodipine, clonidine, enalapril Hyperlipidemia --on no meds Anemia of chronic disease --epogen Minutes to complete discharge: 35 Discharge Summary Reason For Visit: HYPERKALEMIA Current Active Problems Demand ischemia (Acute) ESRD (end stage renal disease) (Acute) HTN (hypertension) (Acute) Hemodialysis access site with arteriovenous graft (Acute) Hypercholesterolemia (Acute) Hyperkalemia (Acute) Pneumonia (Acute) Condition: Improved - Instructions Diet, Activity, Other Instructions: Follow up with Dr. Lopez in one week for suture removal IV antibiotics at Hemodialysis for 1 week Keep area clean and dry. No showers. Referrals: Perfecto Wright MD [Staff Physician] - Antoine Lopez MD [Staff Physician] - 1 Week Disposition: HOME - Home Medications Comprehensive Discharge Medication List: Ambulatory Orders Sevelamer Carbonate [Renvela -] 800 mg PO TIDCM #30 tab 03/16/13 Amlodipine Besylate [Norvasc -] 10 mg PO DAILY #30 tablet 12/27/14 Albuterol Sulfate [Proair Respiclick] 90 mcg [facility] PRN 03/27/16 Ipratropium Carbon [Atrovent Hfa] 12.9 gm IH ASDIR PRN 03/27/16 Omeprazole 20 mg PO DAILY 03/27/16 Cinacalcet HCl [Sensipar -] 60 mg PO DAILY 11/25/16 Clonidine HCl [Clonidine HCl ER] 0.1 mg PO [facility] 11/25/16 Enalapril Maleate 5 mg PO [facility] 11/25/16 This patient is new to me today: No Emergency Visit: Yes ED Registration Date: 11/25/16 Care time: The patient presented to the Emergency Department on the above date and was hospitalized for further evaluation of their emergent condition. Critical Care patient: No - Discharge Referral Referred to [facility] No
--- NOTE | 2016-11-29 11:57 | PN ---
Progress Note, Physician History of Present Illness: Pseudoaneurysm left AV fistula underwent placement covered stent AV fistula and venoplasty. Tolerated HD via revised AV fistula. Reports reproducible atypical chest wall discomfort. - Current Medication List Current Medications: Active Medications Acetaminophen (Tylenol -) 650 mg PO Q4H PRN PRN Reason: FEVER OR PAIN Albuterol/Ipratropium (Duoneb -) 1 amp NEB Q6H PRN PRN Reason: SHORTNESS OF BREATH Amlodipine Besylate (Norvasc -) 10 mg PO DAILY [facility] Last Admin: 11/29/16 09:46 Dose: 10 mg Calcitriol (Rocaltrol -) 0.75 mcg PO Q2D [facility] Last Admin: 11/28/16 11:44 Dose: Not Given Cinacalcet (Sensipar -) 60 mg PO DAILY [facility] Last Admin: 11/29/16 09:46 Dose: 60 mg Clonidine (Catapres -) 0.1 mg PO BID [facility] Last Admin: 11/29/16 09:45 Dose: 0.1 mg Enalapril Maleate (Vasotec -) 5 mg PO DAILY [facility] Last Admin: 11/29/16 09:46 Dose: 5 mg Epoetin Joshua (Epogen -) 6,000 units IVPUSH ONCE ONE Stop: 11/29/16 10:18 Morphine Sulfate (Morphine Injection -) 1 mg IVPUSH Q4H PRN PRN Reason: PAIN Pantoprazole Sodium (Protonix -) 20 mg PO DAILY [facility] Last Admin: 11/29/16 09:45 Dose: 20 mg Sevelamer Carbonate (Renvela -) 800 mg PO TIDCM [facility] Last Admin: 11/29/16 08:15 Dose: 800 mg - Objective Vital Signs: Vital Signs Temperature 98.8 F 11/29/16 05:38 Pulse Rate 72 11/29/16 05:38 Respiratory Rate 18 11/29/16 05:38 Blood Pressure 160/60 11/29/16 05:38 O2 Sat by Pulse Oximetry (%) 98 11/28/16 21:00 Constitutional: Yes: No Distress, Calm, Thin Neck: Yes: Supple Cardiovascular: Yes: Regular Rate and Rhythm Respiratory: Yes: Regular, CTA Bilaterally Gastrointestinal: Yes: Normal Bowel Sounds, Soft Edema: No Labs: CBC, BMP 11/28/16 14:30 11/28/16 06:20 INR, PTT INR 1.04 (0.82-1.09) 11/25/16 07:39 Problem List - Problems (1) HTN (hypertension) Code(s): I10 - ESSENTIAL (PRIMARY) HYPERTENSION Qualifiers: Hypertension type: essential hypertension Qualified Code(s): I10 - Essential (primary) hypertension (2) Hemodialysis access site with arteriovenous graft Code(s): Z99.2 - DEPENDENCE ON RENAL DIALYSIS (3) Hypercholesterolemia Code(s): E78.00 - PURE HYPERCHOLESTEROLEMIA, UNSPECIFIED (4) Hyperkalemia Code(s): E87.5 - HYPERKALEMIA (5) Bleeding from dialysis shunt Code(s): T82.838A - HEMORRHAGE DUE TO VASCULAR PROSTH DEV/GRFT, INIT Qualifiers: Encounter type: initial encounter Qualified Code(s): T82.838A - Hemorrhage due to vascular prosthetic devices, implants and grafts, initial encounter (6) ESRD (end stage renal disease) on dialysis Code(s): N18.6 - END STAGE RENAL DISEASE Z99.2 - DEPENDENCE ON RENAL DIALYSIS (7) Demand ischemia Code(s): I24.8 - OTHER FORMS OF ACUTE ISCHEMIC HEART DISEASE Assessment/Plan 11/27/2016 Normal LV size and fxn, mild cLVH, mild AR 1. Pseudoaneurysm left AV fistula s/p placement covered stent AV fistula and venoplasty 2. ESRD on HD with hyperkalemia 3. HTN 4. Hypercholesterolemia 5. Probable CAD - demand ischemia 6. Anemia of chronic kidney disease PLAN: 1. Continue Amlodipine 10 qd, Clonidine 0.1 bid and Vasotec 5 qd with uptitration as tolerated 2. HD per renal, empiric abx for 1 week post-op 3. Planned for d/c today
[2016-11-29] MEDS ORDERED: EPOETIN ALFA 3,000 UNIT/1 ML ML IVPUSH ONE (12:45)
[2016-11-29 14:08] LABS: ANION GAP 9 (8-16); CALCIUM 8.8 mg/dL (8.5-10.1); CO2 34 mmol/L (21-32); CREATININE 5.8 mg/dL (0.55-1.02); GLUCOSE,RANDOM 102 mg/dL (74-106)
[2016-11-29 14:32] VITALS: TEMP 98.2
[2016-11-29 16:52] VITALS: BP 132/53; PULSE 60
--- NOTE | 2016-11-29 16:57 | PN ---
Progress Note, Physician History of Present Illness: Pt seen and examined at bedside. She is currently getting HD. She denies shortness of breath. - Current Medication List Current Medications: Active Medications Acetaminophen (Tylenol -) 650 mg PO Q4H PRN PRN Reason: FEVER OR PAIN Albuterol/Ipratropium (Duoneb -) 1 amp NEB Q6H PRN PRN Reason: SHORTNESS OF BREATH Amlodipine Besylate (Norvasc -) 10 mg PO DAILY [facility] Last Admin: 11/29/16 09:46 Dose: 10 mg Calcitriol (Rocaltrol -) 0.75 mcg PO Q2D [facility] Last Admin: 11/28/16 11:44 Dose: Not Given Cinacalcet (Sensipar -) 60 mg PO DAILY [facility] Last Admin: 11/29/16 09:46 Dose: 60 mg Clonidine (Catapres -) 0.1 mg PO BID [facility] Last Admin: 11/29/16 09:45 Dose: 0.1 mg Enalapril Maleate (Vasotec -) 5 mg PO DAILY [facility] Last Admin: 11/29/16 09:46 Dose: 5 mg Pantoprazole Sodium (Protonix -) 20 mg PO DAILY [facility] Last Admin: 11/29/16 09:45 Dose: 20 mg Sevelamer Carbonate (Renvela -) 800 mg PO TIDCM [facility] Last Admin: 11/29/16 08:15 Dose: 800 mg - Objective Vital Signs: Vital Signs Temperature 98.2 F 11/29/16 12:55 Pulse Rate 60 11/29/16 16:52 Respiratory Rate 18 11/29/16 16:52 Blood Pressure 132/53 11/29/16 16:52 O2 Sat by Pulse Oximetry (%) 98 11/28/16 21:00 Constitutional: Yes: Calm Eyes: Yes: Conjunctiva Clear HENT: Yes: Atraumatic Neck: Yes: Supple Cardiovascular: Yes: S1, S2 Respiratory: Yes: CTA Bilaterally Gastrointestinal: Yes: Soft ...Rectal Exam: Yes: Deferred Genitourinary: Yes: WNL Musculoskeletal: Yes: WNL Edema: No Neurological: Yes: Oriented Psychiatric: Yes: Oriented Labs: CBC, BMP 11/28/16 14:30 11/29/16 13:00 INR, PTT INR 1.04 (0.82-1.09) 11/25/16 07:39 Problem List - Problems (1) ESRD (end stage renal disease) Code(s): N18.6 - END STAGE RENAL DISEASE (2) Hyperkalemia Code(s): E87.5 - HYPERKALEMIA (3) Bleeding from dialysis shunt Code(s): T82.838A - HEMORRHAGE DUE TO VASCULAR PROSTH DEV/GRFT, INIT Qualifiers: Encounter type: initial encounter Qualified Code(s): T82.838A - Hemorrhage due to vascular prosthetic devices, implants and grafts, initial encounter Assessment/Plan Current Medications Generic Name Dose Route Start Last Admin Trade Name Freq PRN Reason Stop Dose Admin Acetaminophen 650 mg 11/27/16 14:00 Tylenol - PO Q4H PRN FEVER OR PAIN Albuterol/Ipratropium 1 amp 11/27/16 14:00 Duoneb - NEB Q6H PRN SHORTNESS OF BREATH Amlodipine Besylate 10 mg 11/28/16 10:00 11/29/16 09:46 Norvasc - PO 10 mg DAILY [facility] Administration Calcitriol 0.75 mcg 11/28/16 10:00 11/28/16 11:44 Rocaltrol - PO Not Given Q2D [facility] Cinacalcet 60 mg 11/28/16 10:00 11/29/16 09:46 Sensipar - PO 60 mg DAILY [facility] Administration Clonidine 0.1 mg 11/27/16 22:00 11/29/16 09:45 Catapres - PO 0.1 mg BID [facility] Administration Enalapril Maleate 5 mg 11/28/16 10:00 11/29/16 09:46 Vasotec - PO 5 mg DAILY [facility] Administration Pantoprazole Sodium 20 mg 11/28/16 10:00 11/29/16 09:45 Protonix - PO 20 mg DAILY [facility] Administration Sevelamer Carbonate 800 mg 11/27/16 17:30 11/29/16 08:15 Renvela - PO 800 mg TIDCM [facility] Administration Impression 1. ESRD 2. hyperkalemia 3. bleeding fistula 4. HTN 5. anemia 6. elevated amylase and lipase Plan - dialyzed pt today, she is now back on MWF schedule - vanco with HD, called and spoke to HD unit - fistula is working - epogen for anemia - monitor blood pressure - HD Prescription :3:30, opti 180 [id number], DW 43.5, AV fistula, epogen 6000, calcitriol 0.[address] Wright
== END 2016-11-29 18:56 | disposition home or self-care (01) | DRG 173 ==
LOC: JER 06:15 → JERBED 14:08 → J6S 15:15 → OBSVTOIN 18:07
PROVIDERS: ADMIT Internal Medicine; ATTEND Nurse Practitioner Acute Care
PROC: 06HN33Z Insertion of Infusion Device into Left Femoral Vein, Percutaneous Approach (ICD-10-PCS; principal; 2016-11-25)
PROC: 5A1D60Z (ICD-10-PCS; 2016-11-25)
PROC: 057Y3DZ Dilation of Upper Vein with Intraluminal Device, Percutaneous Approach (ICD-10-PCS; 2016-11-27)
PROC: B51NZZZ Fluoroscopy of Left Upper Extremity Veins (ICD-10-PCS; 2016-11-27)
DX: T82.838A Hemorrhage due to vascular prosthetic devices, implants and grafts, initial encounter (principal); I12.0 Hypertensive chronic kidney disease with stage 5 chronic kidney disease or end stage renal disease; N18.6 End stage renal disease; I72.1 Aneurysm of artery of upper extremity; E78.5 Hyperlipidemia, unspecified; E87.5 Hyperkalemia; D63.8 Anemia in other chronic diseases classified elsewhere; Y83.8 Other surgical procedures as the cause of abnormal reaction of the patient, or of later complication, without mention of misadventure at the time of the procedure; Y92.89 Other specified places as the place of occurrence of the external cause; I24.8 Other forms of acute ischemic heart disease; Z99.2 Dependence on renal dialysis
CPT/HCPCS: 36415; 76000-TC; 80048; 80053; 80061; 82150; 82550; 82553; 83036; 83690; 83721; 83735; 84100; 84132; 84484; 85025; 85027; 85610; 86704; 86706; 86708; 86803; 86850; 86900; 86901; 87070; 87205; 87340; 93005; 93010; 93306-TC; 94760; 99285-25; G0378; G0480; J0885; J1644

== ENCOUNTER 2016-12-06 23:08 | Inpatient (IN) | payer OTHER ==
[2016-12-06 23:34] VITALS: BMI 24.3
[2016-12-07] MEDS ORDERED: LABETALOL HCL 5 MG/1 ML (100MG/20 ML VIAL) IVPUSH ONE (00:34)
[2016-12-07 01:00] LABS: BASOPHIL 1.2 % (0-2.0); EOSINOPHIL 3.7 % (0-4.5); MCH 31.1 pg (25.7-33.7); MCHC 32.6 g/dl (32.0-36.0); MEAN CELL VOLUME 95.3 fl (80-96); NEUTROPHILS 65.4 % (42.8-82.8); PLATELET COUNT 187 K/MM3 (134-434); RDW 15.2 % (11.6-15.6); WHITE BLOOD COUNT 5.6 K/mm3 (4.0-10.0)
[2016-12-07] MEDS ORDERED: ENALAPRIL MALEATE 10 MG TABLET (FP) PO SCH (01:00)
[2016-12-07] MEDS ORDERED: ENALAPRIL MALEATE 5 MG TABLET (FP) ONE ×2 (01:18→05:50)
[2016-12-07 01:20] LABS: INR 1.14 (0.82-1.09); PROTHROMBIN TIME (PATIENT) 12.6 SEC (9.98-11.88)
[2016-12-07 01:28] LABS: ALBUMIN 3.8 g/dl (3.4-5.0); ANION GAP 11 (8-16); CALCIUM 9.9 mg/dL (8.5-10.1); CO2 33 mmol/L (21-32); GLUCOSE,RANDOM 109 mg/dL (74-106); SGOT/AST 25 U/L (15-37); SGPT/ALT 17 U/L (12-78)
[2016-12-07 01:31] LABS: ALK PHOS 142 U/L (45-117); BILIRUBIN,TOTAL 0.5 mg/dL (0.2-1.0); CREATININE 5.8 mg/dL (0.55-1.02); TOT PROT 6.9 g/dl (6.4-8.2)
--- NOTE | 2016-12-07 03:37 | PDOC ---
History of Present Illness - General Chief Complaint: Nasal Bleeding Stated Complaint: NASAL BLEED Time Seen by Provider: 12/06/16 23:42 - History of Present Illness Initial Comments: 12/07/16 03:34 CHIEF COMPLAINT: epistaxis HISTORY OF PRESENT ILLNESS: 51 yo F with hx of ESRD (on dialysis MWF), HTN, HLD , presents to ED with epistaxis since 9 pm today. Patient reports that she was was "sneezing very hard" all day and the bleeding has not stopped for hours. Patient denies headache, dizziness, lightheadedness, palpitations, shortness of breath, fever, pain. No recent travel or sick contacts. PAST MEDICAL HISTORY: Denies past medical history FAMILY HISTORY: Denies SOCIAL HISTORY: Denies tobacco, alcohol, illicit drug use. SURGICAL HISTORY: Denies ALLERGIES: No known drug allergies REVIEW OF SYSTEMS General/Constitutional: Denies fever or chills. Denies weakness, weight change. HEENT: Nosebleed x 4 hours. Denies change in vision. Denies ear pain or discharge. Denies sore throat. Cardiovascular: Denies chest pain or shortness of breath. Respiratory: Denies cough, wheezing, or hemoptysis. Gastrointestinal: Denies nausea, vomiting, diarrhea or constipation. Denies rectal bleeding. Genitourinary: Denies dysuria, frequency, or change in urination. Musculoskeletal: Denies joint or muscle swelling or pain. Denies neck or back pain. Skin and breasts: Denies rash or easy bruising. Neurologic: Denies headache, vertigo, loss of consciousness, or loss of sensation. PHYSICAL EXAM General Appearance: Well-appearing, appropriately dressed. No apparent distress , no intoxication. HEENT: Active epistaxis to L nare. EOMI, PERRLA. No conjunctival pallor. No photophobia, scleral icterus. Neck: Supple. Trachea midline. No tenderness, rigidity, carotid bruit, stridor , lymphadenopathy, or thyromegaly. Respiratory/Chest: Lungs CTAB. Cardiovascular: RRR. S1, S2. Gastrointestinal/Abdominal: Normal bowel sounds. Abdomen soft, non-distended. No tenderness or rebound tenderness. No organomegaly, pulsatile mass, guarding , hernia, hepatomegaly, splenomegaly. Lymphatic: No adenopathy, tenderness. Musculoskeletal/Extremities: Normal inspection. FROM of all extremities, normal capillary refill. Pelvis Stable. No CVA tenderness. No tenderness to extremities, pedal edema, swelling, erythema or deformity. Integumentary: Appropriate color, dry, warm. No cyanosis, erythema, jaundice or rash Neurologic: horologist apprentice II-XII intact. Fully oriented, alert. Appropriate mood/affect. Motor strength 5/5. No appreciable EOM palsy, facial droop or sensory deficit. Past History - Past Medical History Allergies/Adverse Reactions: Allergies Allergy/AdvReac Type Severity Reaction Status Date / Time Penicillins Allergy Mild Rash Verified 12/07/16 03:42 doxercalciferol AdvReac Intermediate Itching Verified 12/07/16 03:42 [From Hectorol] Home Medications: Ambulatory Orders Sevelamer Carbonate [Renvela -] 800 mg PO TIDCM #30 tab 03/16/13 Amlodipine Besylate [Norvasc -] 10 mg PO DAILY #30 tablet 12/27/14 Albuterol Sulfate [Proair Respiclick] 90 mcg IH ASDIR PRN 03/27/16 Ipratropium [place] [Atrovent Hfa] 12.9 gm IH ASDIR PRN 03/27/16 Omeprazole 20 mg PO DAILY 03/27/16 Cinacalcet HCl [Sensipar -] 60 mg PO DAILY 11/25/16 Clonidine HCl [Clonidine HCl ER] 0.1 mg PO ASDIR 11/25/16 Enalapril Maleate 5 mg PO ASDIR 11/25/16 Cardiac Disorders: Yes (PACEMAKER INSERTION) Dialysis: Yes (M,W,F) Disorders: Yes (ESRD) HTN: Yes - Surgical History Cardiac Surgery: Yes (PACEMAKER) - Immunization History Immunization Up to Date: Yes - Psycho/Social/Smoking Cessation Hx Anxiety: No Suicidal Ideation: No Smoking Status: No Smoking History: Never smoked Have you smoked in the past 12 months: No Number of Cigarettes Smoked Daily: 0 Hx Alcohol Use: No Drug/Substance Use Hx: No Substance Use Type: None Hx Substance Use Treatment: No *Physical Exam - Vital Signs Last Vital Signs Temp Pulse Resp BP Pulse Ox 64 18 161/64 100 12/07/16 02:27 12/07/16 02:27 12/07/16 02:27 12/07/16 02:27 ED Treatment Course - LABORATORY CBC & Chemistry Diagram: 12/07/16 00:55 12/07/16 00:55 - ADDITIONAL ORDERS Additional order review: Laboratory Results 12/07/16 12/07/16 00:55 00:55 INR 1.14 Sodium 141 Potassium 3.9 D Chloride 97 L Carbon Dioxide 33 H Anion Gap 11 BUN 29 H D Creatinine 5.8 H Creat Clearance w eGFR 7.66 Random Glucose 109 H Calcium 9.9 Total Bilirubin 0.5 D AST 25 ALT 17 Alkaline Phosphatase 142 H Total Protein 6.9 D Albumin 3.8 D 12/07/16 00:55 RBC 3.67 MCV 95.3 MCHC 32.6 RDW 15.2 MPV 9.0 D Neutrophils % 65.4 Lymphocytes % 21.2 Monocytes % 8.5 Eosinophils % 3.7 Basophils % 1.2 - Medications Given in the ED: ED Medications Discontinued Medications Generic Name Dose Route Start Last Admin Trade Name Freq PRN Reason Stop Dose Admin Labetalol HCl 10 mg 12/07/16 00:34 12/07/16 00:40 Normodyne Injection - IVPUSH 12/07/16 00:35 10 mg ONCE ONE Administration Medical Decision Making - Medical Decision Making 12/07/16 05:54 51 yo F with hx of ESRD (on dialysis MWF), HTN, HLD, presents to ED with epistaxis since 9 pm today. VS notable for BP of 207/94. -CBC, CMP, PT/INR -Labetalol -Enalapril BP rechecked, now 161/64. Labs: creatinine 5.8, at baseline. Anterior rhino rocket placed. Reassessed after 20 minutes, patient still actively bleeding. Anterior/posterior rhinorocket placed, will admit to hospitalist for intractable posterior epistaxis. ENT consult placed. Spoke with [facility] who accepts patient to observation. *DC/Admit/Observation/Transfer Diagnosis at time of Disposition: Bleeding nose - Discharge Dispostion Admit: Yes - Referrals Referrals: Jakob Daniel MD [Staff Physician] - - Patient Instructions Printed Discharge Instructions: DI for Nosebleed Additional Instructions: As discussed, you must follow up with the ENT doctor on Friday to take out the material from your nose. If you experience lightheadedness, fever, vomiting, headache, dizziness, palpitations, or any new or worsening symptoms, please return to the ER immediately.
--- NOTE | 2016-12-07 05:34 | HP ---
CHIEF COMPLAINT: Epistaxis PCP: HISTORY OF PRESENT ILLNESS: This is a 51 y/o female with a past medical history of ESRD (HD- M,W,F), HTN, HLD, Epistaxis (10 yrs ago). Who presents to the ED with epistaxis since 2100 last night. Patient is Greek speaking only, ED staff nurse translated. Patient reports after sneezing, she bent down and her left nare began to bleed. Patient reports having a similar episode 10 years ago and having her nose packed in the ER. Patient denies fall or trauma. Patient reports being dialyzed on Friday. Patient denies SOB, dizziness, headache, CP. ER course was notable for: (1) BP 207/94- Labetolol IV and Enalapril po given- BP 161/64 (2) Bun 5.8 (3) EKG-NSR with ST & T wave abnormality Recent Travel: None PAST MEDICAL HISTORY: ESRD HTN HLD Epistaxis PAST SURGICAL HISTORY: L -Arm AV Fistula Social History: Smoking: Never Alcohol: Denies Drugs: Denies Lives with S.O., independent not employed Family History: Father: DM, Mother: HTN Brother: DM Allergies Penicillins Allergy (Mild, Verified 12/07/16 03:42) Rash doxercalciferol [From Hectorol] Adverse Reaction (Intermediate, Verified 03:42) Itching HOME MEDICATIONS: Home Medications Medication Instructions Recorded Sevelamer Carbonate [Renvela -] 800 mg PO TIDCM #30 tab 03/16/13 Amlodipine Besylate [Norvasc -] 10 mg PO DAILY #30 tablet 12/27/14 Albuterol Sulfate [Proair 90 mcg IH ASDIR PRN 03/27/16 Respiclick] Ipratropium [place] [Atrovent Hfa] 12.9 gm IH ASDIR PRN 03/27/16 Omeprazole 20 mg PO DAILY 03/27/16 Cinacalcet HCl [Sensipar -] 60 mg PO DAILY 11/25/16 Clonidine HCl [Clonidine HCl ER] 0.1 mg PO ASDIR 11/25/16 Enalapril Maleate 5 mg PO ASDIR 11/25/16 REVIEW OF SYSTEMS CONSTITUTIONAL: Absent: fever, chills, diaphoresis, generalized weakness, malaise, loss of appetite, weight change HEENT: Epistaxis, L-ear pain Absent: rhinorrhea, nasal congestion, throat pain, throat swelling, difficulty swallowing, mouth swelling, eye pain, visual changes CARDIOVASCULAR: Absent: chest pain, syncope, palpitations, irregular heart rate, lightheadedness , peripheral edema RESPIRATORY: Absent: cough, shortness of breath, dyspnea with exertion, orthopnea, wheezing, stridor, hemoptysis GASTROINTESTINAL: Absent: abdominal pain, abdominal distension, nausea, vomiting, diarrhea, constipation, melena, hematochezia GENITOURINARY: Absent: dysuria, frequency, urgency, hesitancy, hematuria, flank pain, genital pain MUSCULOSKELETAL: Absent: myalgia, arthralgia, joint swelling, back pain, neck pain SKIN: Absent: rash, itching, pallor HEMATOLOGIC/IMMUNOLOGIC: Absent: easy bleeding, easy bruising, lymphadenopathy, frequent infections ENDOCRINE: Absent: unexplained weight gain, unexplained weight loss, heat intolerance, cold intolerance NEUROLOGIC: Absent: headache, focal weakness or paresthesias, dizziness, unsteady gait, seizure, mental status changes, bladder or bowel incontinence PSYCHIATRIC: Absent: anxiety, depression, suicidal or homicidal ideation, hallucinations. PHYSICAL EXAMINATION Vital Signs - 24 hr 12/06/16 12/07/16 12/07/16 23:30 00:35 02:27 Pulse Rate 77 Pulse Rate [ 64 Right Apical] Respiratory 18 18 Rate Blood Pressure 207/94 Blood Pressure 161/64 [Right Arm] O2 Sat by Pulse 99 100 100 Oximetry (%) GENERAL: Awake, alert, and fully oriented, in no acute distress. HEAD: Normal with no signs of trauma. EYES: Pupils equal, round and reactive to light, extraocular movements intact, sclera anicteric, conjunctiva clear. No lid lag. EARS, NOSE, THROAT: R -nare patent, L- nare packing with scant blood. Ears normal, oropharynx clear without exudates. Moist mucous membranes. NECK: Normal range of motion, supple without lymphadenopathy, JVD, or masses. LUNGS: Breath sounds equal, clear to auscultation bilaterally. No wheezes, and no crackles. No accessory muscle use. HEART: Regular rate and rhythm, normal S1 and S2. Systolic 2/6 murmur. No rub or gallop. ABDOMEN: Soft, nontender, not distended, normoactive bowel sounds, no guarding, no rebound, no masses. No hepatomegaly or splenomegaly. MUSCULOSKELETAL: Normal range of motion at all joints. No bony deformities or tenderness. No CVA tenderness. UPPER EXTREMITIES: 2+ pulses, warm, well-perfused. No cyanosis. No clubbing. No peripheral edema. L -arm AV Fistula +thrill/bruit LOWER EXTREMITIES: 2+ pulses, warm, well-perfused. No calf tenderness. No peripheral edema. NEUROLOGICAL: Cranial nerves II-XII intact. Normal speech. Normal gait. PSYCHIATRIC: Cooperative. Good eye contact. Appropriate mood and affect. SKIN: Warm, dry, normal turgor, no rashes or lesions noted, normal capillary refill. Laboratory Results - last 24 hr 12/07/16 12/07/16 12/07/16 00:55 00:55 00:55 WBC 5.6 D RBC 3.67 Hgb 11.4 D Hct 35.0 D MCV 95.3 MCH 31.1 MCHC 32.6 RDW 15.2 Plt Count 187 D MPV 9.0 D Neutrophils % 65.4 Lymphocytes % 21.2 Monocytes % 8.5 Eosinophils % 3.7 Basophils % 1.2 INR 1.14 Sodium 141 Potassium 3.9 D Chloride 97 L Carbon Dioxide 33 H Anion Gap 11 BUN 29 H D Creatinine 5.8 H Creat Clearance w eGFR 7.66 Random Glucose 109 H Calcium 9.9 Total Bilirubin 0.5 D AST 25 ALT 17 Alkaline Phosphatase 142 H Total Protein 6.9 D Albumin 3.8 D ASSESSMENT/PLAN: This is a 51 y/o female with a PMHx of: ESRD, (HD- MWF), HTN, HLD, Epistaxis. Placed in Observation for Acute Epistaxis for further evaluation of their emergent condition. Plan: 1. HEENT: Epistaxis - Likely secondary to coagulopathy - Rhinorocket placed in L nare in ED - Appreciate ENT Consult - H/H stable - Monitor CBC - Monitor vitals 2. ESRD - Stable - Cr at baseline - Last Dialysis 12/06/16 - Consider Nephrology Consult for HD management if stay > 2 days - Continue home meds 3. HTN - Uncontrolled - Likely secondary to ?noncompliance - Labetolol, Enalapril given in ED- BP improved - Continue home meds - Monitor renal function - Monitor vitals 4. HLD - Continue home med 5. FEN - Tolerates PO Fluids - Replete lytes prn - Low Na, Renal Diet 6. DVT Prophylaxis - OOB - SCDs - Hold ACs secondary to Epistaxis Code Status: Full Code Problem List - Problem (1) Bleeding nose Code(s): R04.0 - EPISTAXIS (2) ESRD (end stage renal disease) Code(s): N18.6 - END STAGE RENAL DISEASE (3) HTN (hypertension) Code(s): I10 - ESSENTIAL (PRIMARY) HYPERTENSION Qualifiers: (4) Hypercholesterolemia Code(s): E78.00 - PURE HYPERCHOLESTEROLEMIA, UNSPECIFIED (5) DVT prophylaxis Code(s): EQC6711 - Visit type - Emergency Visit Emergency Visit: Yes ED Registration Date: 12/06/16 Care time: The patient presented to the Emergency Department on the above date and was hospitalized for further evaluation of their emergent condition. - New Patient This patient is new to me today: Yes Date on this admission: 12/07/16 - Critical Care Critical Care patient: No
[2016-12-07] MEDS ORDERED: PATIENT'S OWN MEDICATION (NON-FORMULARY) (Albuterol Sulfate [Proair Respiclick] 90 MCG) IH PRN (05:41)
[2016-12-07] MEDS ORDERED: PATIENT'S OWN MEDICATION (NON-FORMULARY) (Ipratropium Bromide [Atrovent Hfa] 12.9 GM) IH PRN ×2 (05:41→06:13)
[2016-12-07] MEDS ORDERED: PATIENT'S OWN MEDICATION (NON-FORMULARY) (Clonidine Hcl [Clonidine Hcl Er] 0.1 MG) PO SCH (05:45)
[2016-12-07] MEDS ORDERED: cloNIDine HCL 0.1 MG TABLET ONE (05:50)
[2016-12-07] MEDS ORDERED: ALBUTEROL SO4 6.7 GM HFA INHALER IH PRN ×2 (06:11→09:30)
[2016-12-07] MEDS ORDERED: SEVELAMER CARBONATE 800 MG TAB (FP) PO SCH (08:00)
[2016-12-07] MEDS ORDERED: cloNIDine HCL 0.1 MG TABLET PO SCH ×3 (08:10→10:00)
[2016-12-07] MEDS ORDERED: amLODIPine BESYLATE 10 MG TABLET (FP) PO SCH ×2 (08:15→10:00)
[2016-12-07] MEDS ORDERED: ENALAPRIL MALEATE 5 MG TABLET (FP) PO SCH (08:30)
[2016-12-07 08:55] LABS: BASOPHIL 1.1 % (0-2.0); EOSINOPHIL 3.8 % (0-4.5); MCH 31.9 pg (25.7-33.7); MCHC 33.3 g/dl (32.0-36.0); MEAN CELL VOLUME 95.7 fl (80-96); MEAN PLT VOLUME 8.9 fl (7.5-11.1); NEUTROPHILS 71.3 % (42.8-82.8); PLATELET COUNT 173 K/MM3 (134-434); RDW 15.4 % (11.6-15.6); WHITE BLOOD COUNT 5.2 K/mm3 (4.0-10.0)
--- NOTE | 2016-12-07 09:15 | CON.ENT ---
Consult Consult Specialty:: ent - History of Present Illness Chief Complaint: nosebleed History of Present Illness: 51F with PMHx notable for HTN, pacemaker implant, and ESRD on dialysis presented to ER yesterday with several hours of left epistaxis. Her BP was noted to be very high with SBP>200. A posterior rhinorocket was inserted, and she was trasnferred to floor. She has since been transferred to telemetry for better BP control - History Source History Provided By: Patient Limitations to Obtaining History: No Limitations - Past Medical History Cardio/Vascular: Yes: HTN, Hyperlipdemia Renal/: Yes: Renal Failure, Hemodialysis ...LMP: 06/02/13 - Past Surgical History Past Surgical History: Yes: AV Fistula/Graft - Alcohol/Substance Use Hx Alcohol Use: No History of Substance Use: reports: None - Smoking History Smoking history: Never smoked Have you smoked in the past 12 months: No Aproximately how many cigarettes per day: 0 - Social History ADL: Independent History of Recent Travel: No Home Medications - Allergies Allergies/Adverse Reactions: Allergies Allergy/AdvReac Type Severity Reaction Status Date / Time Penicillins Allergy Mild Rash Verified 12/07/16 03:42 doxercalciferol AdvReac Intermediate Itching Verified 12/07/16 03:42 [From Hectorol] - Home Medications Home Medications: Ambulatory Orders Sevelamer Carbonate [Renvela -] 800 mg PO TIDCM #30 tab 03/16/13 Amlodipine Besylate [Norvasc -] 10 mg PO DAILY #30 tablet 12/27/14 Albuterol Sulfate [Proair Respiclick] 90 mcg IH ASDIR PRN 03/27/16 Ipratropium [place] [Atrovent Hfa] 12.9 gm IH ASDIR PRN 03/27/16 Omeprazole 20 mg PO DAILY 03/27/16 Cinacalcet HCl [Sensipar -] 60 mg PO DAILY 11/25/16 Clonidine HCl [Clonidine HCl ER] 0.1 mg PO BID 11/25/16 Enalapril Maleate 5 mg PO ASDIR 11/25/16 Review of Systems - Review of Systems HENT: reports: Epistaxis Physical Exam-ENT Vital Signs: Vital Signs Temperature 98 F 12/07/16 09:03 Pulse Rate 67 12/07/16 09:03 Respiratory Rate 20 12/07/16 09:03 Blood Pressure 190/89 12/07/16 09:03 O2 Sat by Pulse Oximetry (%) 100 12/07/16 06:14 Constitutional: Yes: Well Nourished, No Distress, Calm Head: Yes: WNL Face: Yes: WNL Eyes: Yes: WNL Nose: Yes: Other (left rhinorocket fully inserted, balloon inflated. Some fresh blood between both nares. no active bleeding. Tissue inserted in R n/c, removed without any active bleeding.) Oral/Pharynx: Yes: Other (dry blood coating o/p) Outer Ear: Yes: WNL Ear Canal: Yes: Cerumen Neck: Yes: Supple Neurological: Yes: Other (CN3-7,11,12 intact) Problem List - Problems (1) Bleeding nose Assessment/Plan: Recalictrant Epistaxis in setting of severe HTN (221/110 this morning). Bleeding stopped with left rhinorocket. - BP very elevated. The most important item to control at this point is her blood pressure. It is common for people to have nosebleeds even around ant/post packs when the BP is as high as hers is. *Very little can be done to control nosebleeds when BP is this high.* It must be brought down. If her bleeding starts up again, please re-check the BP and if elevated work on bringing down. - Element of coagulopathy likely with ESRD on HD. - Monitor Hct as needed - PRophy abx gram positive coverage generally rec'd while packing in place. - Packing should stay in for three days. Please have her schedule a followup on Friday. Call with questions. Code(s): R04.0 - EPISTAXIS
[2016-12-07 09:26] LABS: ANION GAP 11 (8-16); CALCIUM 10.8 mg/dL (8.5-10.1); CO2 30 mmol/L (21-32); CREATININE 6.7 mg/dL (0.55-1.02); GLUCOSE,RANDOM 94 mg/dL (74-106)
[2016-12-07] MEDS ORDERED: CINACALCET HCL 30 MG TAB (FP) PO SCH (10:00)
[2016-12-07] MEDS ORDERED: PANTOPRAZOLE 20 MG TABLET (FP) PO SCH (10:00)
--- NOTE | 2016-12-07 11:32 | HOSP ---
Physical Examination Vital Signs: Vital Signs Temperature 98 F 12/07/16 10:03 Pulse Rate 66 12/07/16 10:03 Respiratory Rate 20 12/07/16 10:03 Blood Pressure 170/70 12/07/16 10:03 O2 Sat by Pulse Oximetry (%) 100 12/07/16 09:08 Findings/Remarks: Subjective: The patient was seen and examined at the bedside, she has a left nare rhinorocket in place, no ozzing around noted. Current Medications Generic Name Dose Route Start Last Admin Trade Name [place] PRN Reason Stop Dose Admin Albuterol Sulfate 1 puff 12/07/16 09:30 Ventolin Hfa Inhaler - IH Q4H PRN SHORTNESS OF BREATH Amlodipine Besylate 10 mg 12/08/16 10:00 Norvasc - PO DAILY [facility] Cinacalcet 60 mg 12/08/16 10:00 Sensipar - PO DAILY [facility] Clonidine 0.1 mg 12/07/16 08:10 12/07/16 08:11 Catapres - PO 0.1 mg BID [facility] Administration Enalapril Maleate 5 mg 12/07/16 08:30 12/07/16 08:32 Vasotec - PO 5 mg DAILY [facility] Administration Pantoprazole Sodium 20 mg 12/08/16 10:00 Protonix - PO DAILY [facility] Sevelamer Carbonate 800 mg 12/07/16 12:00 Renvela - PO TIDCM [facility] Objective: Vital Signs Period Temp Pulse Resp BP Sys/Angel Pulse Ox Last 24 Hr 98 F-98.6 F 64-77 18-20 161-236/64-202 99-100 Physical Exam: General: NAD, A&Ox3 HEENT: Left nare rhinorocket in place, dried blood. No active bleeding noted Lungs: CTA bilaterally Heart: RRR, S1S2, + murmur Abd: Soft, non-tender, non-distended. Normoactive bowel sounds Ext: Warm, well-perfused. 2+ DP/PT bilaterally. Left arm AV fistula +thrill, + bruit CBCD WBC 5.2 K/mm3 (4.0-10.0) 12/07/16 08:44 RBC 3.79 M/mm3 (3.60-5.2) 12/07/16 08:44 Hgb 12.1 GM/dL (10.7-15.3) 12/07/16 08:44 Hct 36.3 % (32.4-45.2) 12/07/16 08:44 MCV 95.7 fl (80-96) 12/07/16 08:44 MCHC 33.3 g/dl (32.0-36.0) 12/07/16 08:44 RDW 15.4 % (11.6-15.6) 12/07/16 08:44 Plt Count 173 K/MM3 (134-434) 12/07/16 08:44 MPV 8.9 fl (7.5-11.1) 12/07/16 08:44 CMP Sodium 139 mmol/L (136-145) 12/07/16 08:44 Potassium 4.5 mmol/L (3.5-5.1) 12/07/16 08:44 Chloride 98 mmol/L (98-107) 12/07/16 08:44 Carbon Dioxide 30 mmol/L (21-32) 12/07/16 08:44 Anion Gap 11 (8-16) 12/07/16 08:44 BUN 31 mg/dL (7-18) H 12/07/16 08:44 Creatinine 6.7 mg/dL (0.55-1.02) H 12/07/16 08:44 Creat Clearance w eGFR 7.66 (>60) 12/07/16 00:55 Random Glucose 94 mg/dL (74-106) 12/07/16 08:44 Calcium 10.8 mg/dL (8.5-10.1) H 12/07/16 08:44 Total Bilirubin 0.5 mg/dL (0.2-1.0) D 12/07/16 00:55 AST 25 U/L (15-37) 12/07/16 00:55 ALT 17 U/L (12-78) 12/07/16 00:55 Alkaline Phosphatase 142 U/L (45-117) H 12/07/16 00:55 Total Protein 6.9 g/dl (6.4-8.2) D 12/07/16 00:55 Albumin 3.8 g/dl (3.4-5.0) D 12/07/16 00:55 Assessment: This is a 51 year old female with PMHx of ESRD (on HD M,W,F), HTN, who presented to the ED with hypertensive emergency and epistaxis. Plan: 1) Hypertensive emergency - Epistaxis: left rhino rocket in place - Start Clindamycin 300mg q6h for staph prophylaxis while rhino rocket in place (allergy to penicillin) - Restarted on BP meds: Norvasc, Clonidine, Enalapril - Transferred to tele for closer monitoring - Appreciate ENT consult 2) ESRD (on HD) - Next HD on Friday - Monitor Cr, K 3) F/E/N: - Renal diet 4) Prophylaxis: - Hold all chemical DVT prophylaxis given epistaxis - SCDs bilaterally 5) Dispo: - Requires continued inpatient care CODE STATUS: FULL CODE Labs: CBC, BMP 12/07/16 08:44 12/07/16 08:44
[2016-12-07] MEDS ORDERED: CLINDAMYCIN HCL 300 MG CAPSULE PO SCH (12:00)
[2016-12-07] MEDS: SEVELAMER CARBONATE 800 MG TAB (FP) PO SCH ×2 (12:09→17:37)
--- NOTE | 2016-12-07 12:47 | CON.NEP ---
Consult Consult Specialty:: Nephrology Reason for Consultation:: esrd - History of Present Illness Chief Complaint: epistaxis History of Present Illness: This is a 51 year old woman with history of esrd due to hypertension who presented with acute onset of epistaxis. She was found to have very high BP and is being currently monitored. She denies chest pain or dyspnea. Says she had a very forceful sneeze and started bleeding after that. Feels well otherwise. - History Source History Provided By: Patient, Medical Record - Past Medical History Cardio/Vascular: Yes: HTN, Hyperlipdemia Renal/: Yes: Renal Failure, Hemodialysis ...LMP: 06/02/13 - Past Surgical History Past Surgical History: Yes: AV Fistula/Graft - Alcohol/Substance Use Hx Alcohol Use: No History of Substance Use: reports: None - Smoking History Smoking history: Never smoked Have you smoked in the past 12 months: No Aproximately how many cigarettes per day: 0 - Social History ADL: Independent History of Recent Travel: No Home Medications - Allergies Allergies/Adverse Reactions: Allergies Allergy/AdvReac Type Severity Reaction Status Date / Time Penicillins Allergy Mild Rash Verified 12/07/16 03:42 doxercalciferol AdvReac Intermediate Itching Verified 12/07/16 03:42 [From Hectorol] - Home Medications Home Medications: Ambulatory Orders Sevelamer Carbonate [Renvela -] 800 mg PO TIDCM #30 tab 03/16/13 Amlodipine Besylate [Norvasc -] 10 mg PO DAILY #30 tablet 12/27/14 Albuterol Sulfate [Proair Respiclick] 90 mcg IH ASDIR PRN 03/27/16 Ipratropium [place] [Atrovent Hfa] 12.9 gm IH ASDIR PRN 03/27/16 Omeprazole 20 mg PO DAILY 03/27/16 Cinacalcet HCl [Sensipar -] 60 mg PO DAILY 11/25/16 Clonidine HCl [Clonidine HCl ER] 0.1 mg PO BID 11/25/16 Enalapril Maleate 5 mg PO ASDIR 11/25/16 Review of Systems - Review of Systems Constitutional: reports: No Symptoms Eyes: reports: No Symptoms HENT: reports: No Symptoms, Epistaxis Neck: reports: No Symptoms Cardiovascular: reports: No Symptoms Respiratory: reports: Cough Gastrointestinal: reports: No Symptoms Genitourinary: reports: No Symptoms Breasts: reports: No Symptoms Reported Musculoskeletal: reports: No Symptoms Integumentary: reports: No Symptoms Neurological: reports: No Symptoms Endocrine: reports: No Symptoms Hematology/Lymphatic: reports: No Symptoms Psychiatric: reports: No Symptoms Nephrology Consult - Height Height: 4 ft 5 in - Weight Weight: 97 lb 0.054 oz - BMI Body Mass Index (BMI): 24.3 - Lab Results CBC,BMP: CBC, BMP 12/07/16 08:44 12/07/16 08:44 Anion Gap: Anion Gap Anion Gap 11 (8-16) 12/07/16 08:44 - Physical Examination Vital Signs: Vital Signs Temperature 98 F 12/07/16 10:03 Pulse Rate 70 12/07/16 12:15 Respiratory Rate 20 12/07/16 12:15 Blood Pressure 130/70 12/07/16 12:15 O2 Sat by Pulse Oximetry (%) 100 12/07/16 09:08 Constitutional: Yes: Well Nourished, No Distress Eyes: Yes: Conjunctiva Clear HENT: Yes: Atraumatic, Normocephalic Neck: Yes: Supple, Trachea Midline Cardiovascular: Yes: Regular Rate and Rhythm Respiratory: Yes: Regular, CTA Bilaterally Gastrointestinal: Yes: Normal Bowel Sounds Renal/: Yes: Anuria Access for Hemodialysis: AV Fistula Extremities: Yes: WNL Edema: No Peripheral Pulses WNL: Yes Wound/Incision: Yes: Clean/Dry Neurological: Yes: Alert, Oriented Psychiatric: Yes: Alert, Oriented Assessment/Plan IMPRESSION Hypertension is unlikely by itself to cause epistaxis. Her BP mayhave worsened from the anxiety of the epistaxis. She appears to have a BP that is controlled now. Previously was having some trouble swallowing when she came to my office with that complaint. This however improved. She has stable esrd presumed to be due to hypertension but she didhave a high ALVINA in the past. PLAN ent evaluation pending continue local measures will need to adjust her BP meds. Agree with clonidine, labetalol and enalapril she does not need HD now. Was dialyzed yesterday she did not bleed too much since her hgb is still good. Perhaps the ZAIDA used during dialysis is contributing to her BP elevation... will review MV
[2016-12-07] MEDS: CLINDAMYCIN HCL 150 MG CAPSULE (FP) PO SCH ×2 (13:11→17:35)
--- NOTE | 2016-12-07 17:00 | DS ---
Physical Examination Vital Signs: Vital Signs Temperature 98.1 F 12/07/16 15:48 Pulse Rate 68 12/07/16 15:14 Respiratory Rate 20 12/07/16 15:14 Blood Pressure 140/70 12/07/16 15:14 O2 Sat by Pulse Oximetry (%) 100 12/07/16 09:08 Labs: CBC, BMP 12/07/16 08:44 12/07/16 08:44 Discharge Summary Reason For Visit: EPISTAXIS Current Active Problems Bleeding nose (Acute) DVT prophylaxis (Acute) Demand ischemia (Acute) ESRD (end stage renal disease) (Acute) HTN (hypertension) (Acute) Hemodialysis access site with arteriovenous graft (Acute) Hypercholesterolemia (Acute) Hyperkalemia (Acute) Pneumonia (Acute) Hospital Course: The patient's blood pressure continued to trend down and remains stable this afternoon. She has no bleeding from her nares and there is no posterior bleed noted. The rhino rocket remains in place. Condition: Improved - Instructions Diet, Activity, Other Instructions: Please return to the ED with new, persistent, or worsening symptoms. Please follow-up with providers as indicated. Please continue taking Clindamycin until you see Dr. Daniel (ENT). At that time, Dr. Daniel will decide if you need to continue the antibiotics. If you have any increase in bleeding please return to the ED immediately. Monitor your blood pressure at home every 8 hours and return to the ED immediately if your blood pressure becomes elevated (systolic blood pressure greater than 170) If you experience lightheadedness, fever, vomiting, headache, dizziness, palpitations, or any new or worsening symptoms, please return to the ER immediately. Referrals: Jakob Daniel MD [Staff Physician] - (Please call Dr. Daniel's office on Friday to schedule an appointment for rhino rocket removal for Friday) Anant Manuel MD [Staff Physician] - (Please follow-up as scheduled for your dialysis on Saturday 12/09) Mckay Aguilar MD [Staff Physician] - (Please follow-up with cardiology within 2 -3 days for further management of your blood pressure) Disposition: HOME - Home Medications Comprehensive Discharge Medication List: Ambulatory Orders Sevelamer Carbonate [Renvela -] 800 mg PO TIDCM #30 tab 03/16/13 Amlodipine Besylate [Norvasc -] 10 mg PO DAILY #30 tablet 12/27/14 Albuterol Sulfate [Proair Respiclick] 90 mcg IH ASDIR PRN 03/27/16 Ipratropium [place] [Atrovent Hfa] 12.9 gm IH ASDIR PRN 03/27/16 Omeprazole 20 mg PO DAILY 03/27/16 Cinacalcet HCl [Sensipar -] 60 mg PO DAILY 11/25/16 Clonidine HCl [Clonidine HCl ER] 0.1 mg PO BID 11/25/16 Enalapril Maleate 5 mg PO ASDIR 11/25/16 Clindamycin HCl 300 mg PO Q6H #24 capsule 12/07/16
[2016-12-07 18:51] VITALS: BP 143/70; PULSE 76; TEMP 98
[2016-12-08] MEDS ORDERED: ENALAPRIL MALEATE 5 MG TABLET (FP) PO SCH ×2 (05:45→10:00)
[2016-12-08] MEDS ORDERED: PANTOPRAZOLE 20 MG TABLET (FP) PO SCH (10:00)
[2016-12-08] MEDS ORDERED: amLODIPine BESYLATE 10 MG TABLET (FP) PO SCH (10:00)
[2016-12-08] MEDS ORDERED: CINACALCET HCL 30 MG TAB (FP) PO SCH (10:00)
--- NOTE | 2016-12-09 13:55 | EKG ---
Test Reason : Blood Pressure : / mmHG Vent. Rate : 065 BPM Atrial Rate : 065 BPM P-R Int : 142 ms QRS Dur : 098 ms QT Int : 446 ms P-R-T Axes : -05 013 086 degrees QTc Int : 463 ms NORMAL SINUS RHYTHM ABNORMAL ECG WHEN COMPARED WITH ECG OF 26-NOV-2016 19:36, T WAVE INVERSION LESS EVIDENT IN LATERAL LEADS Confirmed by LORNA WILLAMS MD ([id number]) on 12/09/2016 1:54:40 PM Referred By: Confirmed By:LORNA WILLAMS MD
== END 2016-12-07 18:53 | disposition home or self-care (01) | DRG 199 ==
LOC: JER 23:08 → JERBED 12-07 05:35 → UNDOADMOB 12-07 05:35 → JERBED 12-07 05:43 → J7W 12-07 06:25 → JERBED 12-07 06:25 → J7W 12-07 08:07 → OBSVTOIN 12-07 08:07 → INTOOBSV 12-07 08:07 → J4W 12-07 08:54
PROVIDERS: ADMIT Internal Medicine; ATTEND Registered Nurse
PROC: 2Y41X5Z Packing of Nasal Region using Packing Material (ICD-10-PCS; principal; 2016-12-07)
DX: I16.1 Hypertensive emergency (principal); R04.0 Epistaxis; E78.5 Hyperlipidemia, unspecified; I12.0 Hypertensive chronic kidney disease with stage 5 chronic kidney disease or end stage renal disease; N18.6 End stage renal disease; Z99.2 Dependence on renal dialysis; D68.9 Coagulation defect, unspecified
CPT/HCPCS: 36415; 80048; 80053; 85025; 85610; 93005; 93010; 99283-25

== ENCOUNTER 2016-12-10 12:34 | Emergency (ER) | payer OTHER ==
[2016-12-10 12:40] VITALS: BMI 24.3
--- NOTE | 2016-12-10 13:06 | PDOC ---
History of Present Illness - General History Source: Patient Exam Limitations: No Limitations - History of Present Illness Initial Comments: 12/10/16 14:31 The patient is a 51 year old female, with a significant past medical history of ESRD (on dialysis [facility]), HTN, and HLD who was sent to the emergency department with elevated BP after recurrent nose bleeds. The patient was sent to the ER after being seen at her ENT specialist, and noted to have elevated BP accompanied by a headache. She denies recent fevers, chills, or dizziness. She denies recent nausea, vomit, diarrhea or constipation. She denies recent dysuria, frequency, urgency or hematuria. She denies recent chest pain or shortness of breath. Allergies: See Nursing Notes Past surgical history: None reported. Social history: Nonsmoker. Denies EtOH use and recreational drug use. <Bello Burkett - Last Filed: 12/10/16 14:31> <Corinna Santacruz - Last Filed: 12/10/16 16:30> - General Chief Complaint: Blood Pressure Problem Stated Complaint: HIGH BP (REFERRED) Time Seen by Provider: 12/10/16 13:05 Past History <Bello Burkett - Last Filed: 12/10/16 14:31> - Past Medical History Cardiac Disorders: Yes (PACEMAKER INSERTION) Dialysis: Yes (M,W,F) Disorders: Yes (ESRD , m-w-f) HTN: Yes - Surgical History Cardiac Surgery: Yes (PACEMAKER) - Immunization History Immunization Up to Date: Yes - Psycho/Social/Smoking Cessation Hx Anxiety: No Suicidal Ideation: No Smoking Status: No Smoking History: Never smoked Have you smoked in the past 12 months: No Number of Cigarettes Smoked Daily: 0 Information on smoking cessation initiated: No Hx Alcohol Use: No Drug/Substance Use Hx: No Substance Use Type: None Hx Substance Use Treatment: No <Corinna Santacruz - Last Filed: 12/10/16 16:30> - Past Medical History Allergies/Adverse Reactions: Allergies Allergy/AdvReac Type Severity Reaction Status Date / Time Penicillins Allergy Mild Rash Verified 12/10/16 12:35 doxercalciferol AdvReac Intermediate Itching Verified 12/10/16 12:35 [From Hectorol] Home Medications: Ambulatory Orders Sevelamer Carbonate [Renvela -] 800 mg PO TIDCM #30 tab 03/16/13 Amlodipine Besylate [Norvasc -] 10 mg PO DAILY #30 tablet 12/27/14 Albuterol Sulfate [Proair Respiclick] 90 mcg IH ASDIR PRN 03/27/16 Ipratropium [place] [Atrovent Hfa] 12.9 gm IH ASDIR PRN 03/27/16 Omeprazole 20 mg PO DAILY 03/27/16 Cinacalcet HCl [Sensipar -] 60 mg PO DAILY 11/25/16 Clonidine HCl [Clonidine HCl ER] 0.1 mg PO BID 11/25/16 Enalapril Maleate 5 mg PO ASDIR 11/25/16 Clindamycin HCl 300 mg PO Q6H #24 capsule 12/07/16 Review of Systems - Review of Systems Able to Perform ROS?: Yes Comments:: 12/10/16 14:29 GENERAL/CONSTITUTIONAL: +elevated BP. No: fever, chills, weakness, loss of appetite. HEAD, EYES, EARS, NOSE AND THROAT: No: change in vision, ear pain, discharge, sore throat, throat swelling. CARDIOVASCULAR: No: chest pain, lightheadedness, palpitations, syncope RESPIRATORY: No: cough, shortness of breath, wheezing, hemoptysis, stridor. GASTROINTESTINAL: No: nausea, vomiting, diarrhea, abdominal cramping, rectal bleeding, constipation. GENITOURINARY: No: dysuria, hematuria, frequency, urgency, flank pain. MUSCULOSKELETAL: No: back pain, neck pain, joint pain, muscle swelling or pain SKIN : No: lesions, pallor, rash or easy bruising. NEUROLOGIC: +headache No vertigo, paresthesias, weakness ENDOCRINE: No: unexplained weight gain or loss HEMATOLOGIC/LYMPHATIC: No: anemia, easy bleeding, swelling nodes. <Bello Burkett - Last Filed: 12/10/16 14:31> *Physical Exam - Vital Signs Last Vital Signs Temp Pulse Resp BP Pulse Ox 98.4 F 66 18 180/63 98 12/10/16 13:20 12/10/16 13:20 12/10/16 13:20 12/10/16 13:49 12/10/16 13:20 - Physical Exam Comments: 12/10/16 14:32 GENERAL: The patient is in no acute distress. HEAD: Normal with no signs of trauma. EYES: PERRLA, EOMI, sclera anicteric, conjunctiva clear. ENT: Minor rocket in her left nostril. Ears normal, nares patent, oropharynx clear without exudates. Moist mucous membranes. NECK: Normal range of motion, supple without lymphadenopathy, JVD, or masses. LUNGS: Breath sounds equal, clear to auscultation bilaterally. No wheezes, and no crackles. HEART: Regular rate and rhythm, normal S1 and S2 without murmur, rub or gallop. ABDOMEN: Soft, nontender, normoactive bowel sounds. No guarding, no rebound. No masses palpable. EXTREMITIES: Normal range of motion, no edema. No clubbing or cyanosis. No erythema, or tenderness. NEUROLOGICAL: Cranial nerves II through XII grossly intact. Normal speech. No focal neurological deficits. MUSCULOSKELETAL: Back non-tender to palpation, no CVA tenderness SKIN: Warm, Dry, normal turgor, no rashes or lesions noted. <Bello Burkett - Last Filed: 12/10/16 14:31> - Vital Signs Last Vital Signs Temp Pulse Resp BP Pulse Ox 98.3 F 66 18 186/83 100 12/10/16 12:36 12/10/16 12:36 12/10/16 12:36 12/10/16 12:36 12/10/16 12:36 <Corinna Santacruz - Last Filed: 12/10/16 16:30> ED Treatment Course - Medications Given in the ED: ED Medications Discontinued Medications Generic Name Dose Route Start Last Admin Trade Name Freq PRN Reason Stop Dose Admin Nitroglycerin 0.4 mg 12/10/16 13:08 12/10/16 13:38 Nitrostat - SL 12/10/16 13:09 0.4 mg ONCE ONE Administration <Bello Burkett - Last Filed: 12/10/16 14:31> Medical Decision Making - Medical Decision Making 12/10/16 16:29 Pt came with elevated BP from Dr. Daniel's office. He was unwilling to pull out her nasal tampon, as she has HTN that is persistent. Pt was treated with enalapril and percocet and nitroSL and nitro paste in the ER and she is feeling better and her systolic came down to 174. I pulled out the rhino-rocket and she has no beelding. SHe is stabe and she is ready to go home. <Corinna Santacruz - Last Filed: 12/10/16 16:30> *DC/Admit/Observation/Transfer - Attestations Scribe Attestion: 12/10/16 14:29 Documentation prepared by Bello Burkett, acting as medical lab specialist for Corinna Santacruz MD. <Bello Burkett - Last Filed: 12/10/16 14:31> - Discharge Dispostion Admit: No <Corinna Santacruz - Last Filed: 12/10/16 16:30> Diagnosis at time of Disposition: HTN, goal below 150/90 - Discharge Dispostion Disposition: HOME Condition at time of disposition: Stable - Patient Instructions Printed Discharge Instructions: DI for High Blood Pressure, How to Monitor Your Blood Pressure at Home, Low-Sodium Diet
[2016-12-10] MEDS ORDERED: NITROGLYCERIN SUBLINGUAL 1/150 0.4 MG TAB SL ONE (13:08)
[2016-12-10] MEDS ORDERED: ENALAPRIL MALEATE 10 MG TABLET (FP) PO SCH (13:15)
[2016-12-10 13:21] VITALS: TEMP 98.4
[2016-12-10] MEDS ORDERED: ENALAPRIL MALEATE 5 MG TABLET (FP) ONE ×2 (13:28→14:50)
[2016-12-10] MEDS ORDERED: ENALAPRIL MALEATE 5 MG TABLET (FP) PO ONE (14:20)
[2016-12-10] MEDS ORDERED: NITROGLYCERIN 2% OINTMENT - 1GM PACKET TD ONE ×3 (14:31→15:39)
[2016-12-10] MEDS ORDERED: OXYCODONE/APAP 5/325MG COMBO TABLET PO ONE (14:32)
[2016-12-10] MEDS ORDERED: OXYCODONE/APAP 5/325MG COMBO TABLET ONE (14:50)
[2016-12-10 16:50] VITALS: BP 164/63; PULSE 72
== END 2016-12-10 16:50 | disposition home or self-care (01) ==
LOC: JER 12:34
DX: I10 Essential (primary) hypertension (principal); I12.0 Hypertensive chronic kidney disease with stage 5 chronic kidney disease or end stage renal disease; N18.6 End stage renal disease; N17.8 Other acute kidney failure; Z99.2 Dependence on renal dialysis; Z95.0 Presence of cardiac pacemaker
CPT/HCPCS: 99282-25

== ENCOUNTER 2017-10-27 23:35 | Emergency (ER) | payer OTHER ==
--- NOTE | 2017-10-28 01:10 | PDOC ---
History of Present Illness - General Chief Complaint: Dialysis Shunt Problem Stated Complaint: DIALYSIS SHUNT PROBLEM Time Seen by Provider: 10/28/17 01:10 History Source: Patient Exam Limitations: No Limitations Past History - Past Medical History Allergies/Adverse Reactions: Allergies Allergy/AdvReac Type Severity Reaction Status Date / Time Penicillins Allergy Mild Rash Verified 12/10/16 12:35 doxercalciferol AdvReac Intermediate Itching Verified 12/10/16 12:35 [From Hectorol] Home Medications: Ambulatory Orders Sevelamer Carbonate [Renvela -] 800 mg PO TIDCM #30 tab 03/16/13 Amlodipine Besylate [Norvasc -] 10 mg PO DAILY #30 tablet 12/27/14 Albuterol Sulfate [Proair Respiclick] 90 mcg IH ASDIR PRN 03/27/16 Ipratropium [place] [Atrovent Hfa] 12.9 gm IH ASDIR PRN 03/27/16 Omeprazole 20 mg PO DAILY 03/27/16 Cinacalcet HCl [Sensipar -] 60 mg PO DAILY 11/25/16 Clonidine HCl [Clonidine HCl ER] 0.1 mg PO BID 11/25/16 Enalapril Maleate 5 mg PO ASDIR 11/25/16 Clindamycin HCl 300 mg PO Q6H #24 capsule 12/07/16 Cardiac Disorders: Yes (PACEMAKER INSERTION) Dialysis: Yes (M,W,F) Disorders: Yes (ESRD , m-w-f) HTN: Yes - Surgical History Cardiac Surgery: Yes (PACEMAKER) - Immunization History Immunization Up to Date: Yes - Suicide/Smoking/Psychosocial Hx Smoking Status: No Smoking History: Never smoked Have you smoked in the past 12 months: No Number of Cigarettes Smoked Daily: 0 Hx Alcohol Use: No Drug/Substance Use Hx: No Substance Use Type: None Hx Substance Use Treatment: No *DC/Admit/Observation/Transfer - Discharge Dispostion Condition at time of disposition: Fair - Referrals - Patient Instructions - Post Discharge Activity
[2017-10-28 01:27] VITALS: BP 190/74; PULSE 69; TEMP 98.2; BMI 21.2
--- NOTE | 2017-10-28 01:33 | PDOC ---
*Physical Exam - Vital Signs Last Vital Signs Temp Pulse Resp BP Pulse Ox 98.2 F 69 18 190/74 100 10/28/17 00:50 10/28/17 00:50 10/28/17 00:50 10/28/17 00:50 10/28/17 00:50 Medical Decision Making - Medical Decision Making 10/28/17 01:32 Pt seen by Midlevel Provider under my direct supervision Pt presents with a complaint of pain at the site of fistula Fistula functional for most recent dialysis She also reports suprapubic pain, makes no urine She also notes vaginal irritation I agree with plan as outlined by Midlevel Provider Will discharge to home Follow up with PMD *DC/Admit/Observation/Transfer Diagnosis at time of Disposition: Vaginitis - Discharge Dispostion Disposition: HOME Condition at time of disposition: Fair - Prescriptions Prescriptions: Nystatin Powder [Nystop Powder -] 1 gm TP BID #1 bottle - Referrals - Patient Instructions Printed Discharge Instructions: Atrophic Vaginitis Additional Instructions: apply nystatin powder to vagina please follow up with your doctor as soon as possible,. continue dialysis as per schedule return to the ER if symptoms worsen - Post Discharge Activity
--- NOTE | 2017-10-28 01:55 | PDOC ---
History of Present Illness - General Chief Complaint: Dialysis Shunt Problem Stated Complaint: DIALYSIS SHUNT PROBLEM Time Seen by Provider: 10/28/17 01:10 History Source: Patient Exam Limitations: Language Barrier (encounter with [facility] bleacher pulp ) - History of Present Illness Initial Comments: 10/28/17 02:34 52-year-old female with end-stage renal disease and hypertension complaining suprapubic pain a month and a half, left arm pain (worried about infection to the fistula) and vaginal irritation. Patient reports that she had dialysis yesterday, left AV fistula was accessed noted to have a serosanguineous drainage to the site 2. Denies active bleeding, pus drainage. No erythema, streaking, warmth noted to the left arm. Positive bruit. Patient denies fever, chills, chest pain, nausea vomiting diarrhea. Patient does not make any urinary symptoms Past History - Past Medical History Allergies/Adverse Reactions: Allergies Allergy/AdvReac Type Severity Reaction Status Date / Time Penicillins Allergy Mild Rash Verified 10/29/17 10:40 doxercalciferol AdvReac Intermediate Itching Verified 10/29/17 10:40 [From Hectorol] Home Medications: Ambulatory Orders Amlodipine Besylate 10 mg PO DAILY 10/29/17 Carvedilol [Coreg -] 6.25 mg PO BID 10/29/17 Cinacalcet HCl [Sensipar] 45 mg PO DAILY 10/29/17 Lisinopril 20 mg PO DAILY 10/29/17 Sevelamer HCl [Renagel] 5 tab PO TID 10/29/17 Cardiac Disorders: Yes (PACEMAKER INSERTION) Dialysis: Yes (M,W,F) Disorders: Yes (ESRD , m-w-f) HTN: Yes - Surgical History Cardiac Surgery: Yes (PACEMAKER) - Immunization History Immunization Up to Date: Yes - Suicide/Smoking/Psychosocial Hx Smoking Status: No Smoking History: Never smoked Have you smoked in the past 12 months: No Number of Cigarettes Smoked Daily: 0 Information on smoking cessation initiated: No Hx Alcohol Use: No Drug/Substance Use Hx: No Substance Use Type: None Hx Substance Use Treatment: No Review of Systems - Review of Systems Able to Perform ROS?: Yes Is the patient limited Russian proficient: No Constitutional: No: Symptoms Reported, See HPI, Chills, Diaphoresis, Fever, Loss of Appetite, Malaise, Night Sweats, Weakness, Weight Stable, Unintentional Wgt. Loss, Unexplained wgt Loss, Other HEENTM: No: Symptoms Reported, See HPI, Eye Pain, Blurred Vision, Tearing, Recent change in vision, Double Vision, Cataracts, Ear Pain, Ocular Prothesis, Ear Discharge, Nose Pain, Nose Congestion, Tinnitus, Nose Bleeding, Hearing Loss , Throat Pain, Throat Swelling, Mouth Pain, Dental Problems, Difficulty Swallowing, Mouth Swelling, Other ABD/GI: Yes: Abdominal cramping. No: Symptoms Reported, See HPI, Abdominal Distended, Abd. Pain w/ defecation, Blood Streaked Bowels, Constipated, Diarrhea , Difficulty Swallowing, Nausea, Poor Appetite, Poor Fluid Intake, Rectal Bleeding, Vomiting, Indigestion, Tarry Stools, Other : No: Symptoms Reported, See HPI, Burning, Dysuria, Discharge, Frequency, Flank Pain, Hematuria, Incontinence, Pain, Urgency, Testicular Mass, Testicular Swelling, Lesions, Testicular Pain, Other *Physical Exam - Vital Signs Last Vital Signs Temp Pulse Resp BP Pulse Ox 98.2 F 69 18 190/74 100 10/28/17 00:50 10/28/17 00:50 10/28/17 00:50 10/28/17 00:50 10/28/17 00:50 - Physical Exam General Appearance: Yes: Appropriately Dressed Respiratory/Chest: positive: Lungs Clear, Normal Breath Sounds Female Pelvic Exam: positive: normal external exam, other (erythema and vaginal irritation) Musculoskeletal: positive: Normal Inspection Extremity: positive: Other (shunt + buirt. no bleeding no drainage) Integumentary: positive: Normal Color, Dry, Warm Neurologic: positive: Fully Oriented, Alert, Normal Mood/Affect *DC/Admit/Observation/Transfer Diagnosis at time of Disposition: Vaginitis Qualifiers: Chronicity: acute Qualified Code(s): N76.0 - Acute vaginitis Shunt malfunction Qualifiers: Encounter type: initial encounter Qualified Code(s): T85.618A - Breakdown ( mechanical) of other specified internal prosthetic devices, implants and grafts , initial encounter - Discharge Dispostion Disposition: HOME Condition at time of disposition: Fair - Referrals - Patient Instructions Printed Discharge Instructions: Atrophic Vaginitis Additional Instructions: apply nystatin powder to vagina please follow up with your doctor as soon as possible,. continue dialysis as per schedule return to the ER if symptoms worsen - Post Discharge Activity
== END 2017-10-28 03:15 | disposition home or self-care (01) ==
LOC: JER 23:35
DX: T82.848A Pain due to vascular prosthetic devices, implants and grafts, initial encounter (principal); N76.0 Acute vaginitis; I12.0 Hypertensive chronic kidney disease with stage 5 chronic kidney disease or end stage renal disease; N18.6 End stage renal disease; N17.8 Other acute kidney failure; Z99.2 Dependence on renal dialysis; Z95.0 Presence of cardiac pacemaker
CPT/HCPCS: 99281-25

== ENCOUNTER 2017-10-29 10:20 | Emergency (ER) | payer OTHER ==
[2017-10-29 10:56] VITALS: BMI 26.2
--- NOTE | 2017-10-29 11:12 | PDOC ---
History of Present Illness - General History Source: Patient, Old Records, Other (Glass Technologist- Dr. Manuel) Exam Limitations: No Limitations - History of Present Illness Initial Comments: 10/29/17 12:24 The patient is a 52 year old female, with a significant past medical history of ESRD (on dialysis M,W,F), HTN, and HLD, who was sent to the ED from [facility] today for high blood pressure. The patients dialysis session usually lasts for 3.5 hours, but she was not able to finish the last 45 minutes of her session. She reports taking carvedilol 6.25 mg, lisinopril 20 mg, and nifedipine [address] Milligan spoke to Dr. Manuel (Glass Technologist) and he reports that the patient was recently admitted at [facility] over the weekend for HTN. Dr. Manuel increased her nifedipine dosage to 60 mg and he confirms that the patient is no longer taking clonidine. It is possible that the patient did not go to the pharmacy to take out her new prescriptions. On exam, the patient reports lower extremity swelling on Thursday 10/26 and Friday 10/27 that has now resolved. The patient denies any headache, chest pain, or shortness of breath. She denies any fever, chills, nausea, vomiting, diarrhea, or abdominal pain. Allergies: Penicillins, doxercalciferol Past surgical history: Pacemaker placement Social history: Nonsmoker. Denies EtOH use and recreational drug use. <Yanely Palacios - Last Filed: 10/29/17 15:13> - General History Source: Patient Exam Limitations: No Limitations <Sada Milligan - Last Filed: 10/29/17 16:41> - General Chief Complaint: Blood Pressure Problem Stated Complaint: HIGH BLOOD PRESSURE Past History <Yanely Palacios - Last Filed: 10/29/17 15:13> - Past Medical History Cardiac Disorders: Yes (PACEMAKER INSERTION) COPD: No Dialysis: Yes (M,W,F) Disorders: Yes (ESRD , m-w-f) HTN: Yes - Surgical History Cardiac Surgery: Yes (PACEMAKER) - Immunization History Immunization Up to Date: Yes - Suicide/Smoking/Psychosocial Hx Smoking Status: No Smoking History: Never smoked Have you smoked in the past 12 months: No Number of Cigarettes Smoked Daily: 0 Information on smoking cessation initiated: No Hx Alcohol Use: No Drug/Substance Use Hx: No Substance Use Type: None Hx Substance Use Treatment: No <Sada Milligan - Last Filed: 10/29/17 16:41> - Past Medical History Allergies/Adverse Reactions: Allergies Allergy/AdvReac Type Severity Reaction Status Date / Time Penicillins Allergy Mild Rash Verified 10/29/17 10:40 doxercalciferol AdvReac Intermediate Itching Verified 10/29/17 10:40 [From Hectorol] Home Medications: Ambulatory Orders Amlodipine Besylate 10 mg PO DAILY 10/29/17 Carvedilol [Coreg -] 6.25 mg PO BID 10/29/17 Cinacalcet HCl [Sensipar] 45 mg PO DAILY 10/29/17 Lisinopril 20 mg PO DAILY 10/29/17 Sevelamer HCl [Renagel] 5 tab PO TID 10/29/17 Review of Systems - Review of Systems Able to Perform ROS?: Yes Comments:: 10/29/17 12:26 GENERAL/CONSTITUTIONAL: No fever or chills. No weakness. HEAD, EYES, EARS, NOSE AND THROAT: No change in vision. No ear pain or discharge. No sore throat. CARDIOVASCULAR: No chest pain or shortness of breath. RESPIRATORY: No cough, wheezing, or hemoptysis. GASTROINTESTINAL: No nausea, vomiting, diarrhea or constipation. GENITOURINARY: No dysuria, frequency, or change in urination. MUSCULOSKELETAL: No joint or muscle swelling or pain. No neck or back pain. SKIN: No rash NEUROLOGIC: No headache, vertigo, loss of consciousness, or change in strength/ sensation. ENDOCRINE: No increased thirst. No abnormal weight change. HEMATOLOGIC/LYMPHATIC: No anemia, easy bleeding, or history of blood clots. ALLERGIC/IMMUNOLOGIC: No hives or skin allergy. <Yanely Palacios - Last Filed: 10/29/17 15:13> *Physical Exam - Vital Signs Last Vital Signs Temp Pulse Resp BP Pulse Ox 98.2 F 74 16 212/76 100 10/29/17 10:20 10/29/17 11:13 10/29/17 11:13 10/29/17 11:13 10/29/17 11:13 - Physical Exam Comments: 10/29/17 12:26 GENERAL: Awake, alert, and fully oriented, in no acute distress HEAD: No signs of trauma EYES: PERRLA, EOMI, sclera anicteric, conjunctiva clear ENT: Auricles normal inspection, nares patent, oropharynx clear without exudates. Moist mucosa. NECK: Normal ROM, supple, no lymphadenopathy, JVD, or masses LUNGS: Breath sounds equal, clear to auscultation bilaterally. No wheezes, and no crackles HEART: Regular rate and rhythm, normal S1 and S2, no murmurs, rubs or gallops ABDOMEN: Soft, nontender, normoactive bowel sounds. No guarding, no rebound. No masses EXTREMITIES: Normal range of motion, no edema. No clubbing or cyanosis. No cords, erythema, or tenderness NEUROLOGICAL: Alert and oriented x 3. Moves all extremities. Face is symmetric. SKIN: Warm, Dry, normal turgor, no rashes or lesions noted <Yanely Palacios - Last Filed: 10/29/17 15:13> - Vital Signs Last Vital Signs Temp Pulse Resp BP Pulse Ox 98.2 F 74 14 217/79 100 10/29/17 10:20 10/29/17 10:20 10/29/17 10:20 10/29/17 10:20 10/29/17 10:20 <Sada Milligan - Last Filed: 10/29/17 16:41> Heart Score/ECG Review #1 General ECG Interpretation: Sinus Rhythm, Normal Rate, Normal Intervals, No acute ischemic changes (twi I AVL) Compared to previous ECG there are: No significant change (comparison 12/07/16) <Sada Milligan - Last Filed: 10/29/17 16:41> ED Treatment Course - LABORATORY CBC & Chemistry Diagram: 10/29/17 11:19 10/29/17 11:19 <Yanely Palacios - Last Filed: 10/29/17 15:13> - LABORATORY CBC & Chemistry Diagram: 10/29/17 11:19 10/29/17 11:19 <Sada Milligan - Last Filed: 10/29/17 16:41> Medical Decision Making - Medical Decision Making 10/29/17 11:17 Dr. Manuel was paged and notified via phone service. 10/29/17 15:13 Dr. Manuel was paged a second time for follow-up on the patient. <Yanely Palacios - Last Filed: 10/29/17 15:13> - Medical Decision Making 10/29/17 11:09 52-year-old female history of end-stage renal disease on dialysis Friday and hypertension here today complaining of elevated blood pressure. Patient was seen at dialysis this morning states that they did not finish dialysis due to high blood pressure patient's denying any chest pain or shortness of breath no vision changes no headache. Does complain of pain in the back of her neck which she gets from time to time today at dialysis her blood pressure is 185/80. Patient states that she is currently taking nifedipine 30 mg , lisinopril 20 mg, and carvedilol 6.25 milligrams. She states that she was recently taking different medications however asked her doctor change up she is taking too many medications. Previously she was supposed to be taking clonidine. Patient is requesting minoxidil which is a medication that her friend takes On exam her blood pressure is 210/80 awake alert no acute distress cardiac and lung exam is unremarkable abdomen is soft and nontender left upper extremity fistula is warm and perfused no erythema neuro-alert oriented 3. Her extremities extremities are without edema Differential diagnosis we'll rule out other end organ damage secondary to hypertension within EKG chest x-ray and basic labs. We'll discuss the patient's budget consultant regarding which medications she is supposed to be taking 10/29/17 16:33 d/w dr. aguirre, who stated pt should be taking nifedipine 60 mg , carvedelol 25mg, and lisinopril 20mg. however when called pharmacy pt still only prescribed prior dosing. given 30 mg nifedipine 30, and carvedelol 25. pt bp dropped to 120 / . remained stable with observation. dr aguirre paged to ensure followup day following to discuss medications. will see pt tomorrow. <Sada Milligan - Last Filed: 10/29/17 16:41> *DC/Admit/Observation/Transfer - Attestations Scribe Attestion: 10/29/17 12:27 Documentation prepared by Yanely Palacios, acting as registered medical assistant for Sada Milligan MD. <Yanely Palacios - Last Filed: 10/29/17 15:13> - Discharge Dispostion Decision to Admit order: No <Sada Milligan - Last Filed: 10/29/17 16:41> Diagnosis at time of Disposition: Hypertension - Discharge Dispostion Disposition: HOME Condition at time of disposition: Improved - Referrals Referrals: Anant Manuel MD [Staff Physician] - - Patient Instructions Printed Discharge Instructions: DI for High Blood Pressure Additional Instructions: you need to follow up with DR Manuel tomorrow, call to confirm. you should continue taking all of your medication as prescribed. return for dizziness, shortness of breath, chest pain or any concerns.
[2017-10-29 11:41] LABS: BASO % 2.1 % (0-2.0); EOS % 5.3 % (0-4.5); HEMATOCRIT 33.5 % (32.4-45.2); HEMOGLOBIN 11.3 GM/dL (10.7-15.3); LYMPH % 19.6 % (8-40); MCH 31.7 pg (25.7-33.7); MCHC 33.6 g/dl (32.0-36.0); MEAN CELL VOLUME 94.2 fl (80-96); MEAN PLT VOLUME 9.2 fl (7.5-11.1); MONO % 8.7 % (3.8-10.2); NEUT % 64.3 % (42.8-82.8); PLATELET COUNT 154 K/MM3 (134-434); RBC 3.56 M/mm3 (3.60-5.2); RDW 15.3 % (11.6-15.6)
[2017-10-29 12:07] LABS: ALBUMIN 3.3 g/dl (3.4-5.0); ANION GAP 7 (8-16); BILIRUBIN,TOTAL 0.4 mg/dL (0.2-1.0); BLOOD UREA NITROGEN 23 mg/dL (7-18); CALCIUM 8.9 mg/dL (8.5-10.1); CHLORIDE 100 mmol/L (98-107); CO2 30 mmol/L (21-32); CREATININE 4.8 mg/dL (0.55-1.02); GLUCOSE,RANDOM 92 mg/dL (74-106); POTASSIUM 4.3 mmol/L (3.5-5.1); SGOT/AST 57 U/L (15-37); SODIUM 137 mmol/L (136-145); TOT PROT 6.3 g/dl (6.4-8.2)
[2017-10-29 12:35] LABS: ALK PHOS 109 U/L (45-117); SGPT/ALT 48 U/L (12-78)
[2017-10-29] MEDS ORDERED: CARVEDILOL 25 MG TABLET (FP) PO ONE (13:01)
[2017-10-29] MEDS ORDERED: NIFEdipine 10 MG CAPSULE (FP) PO ONE (13:11)
[2017-10-29] MEDS ORDERED: CARVEDILOL 12.5 MG TABLET (FP) ONE (13:20)
[2017-10-29] MEDS ORDERED: NIFEdipine 10 MG CAPSULE (FP) ONE (13:21)
[2017-10-29 16:55] VITALS: BP 129/64; PULSE 66; TEMP 97.9
--- NOTE | 2017-10-30 13:30 | EKG ---
Test Reason : Blood Pressure : / mmHG Vent. Rate : 073 BPM Atrial Rate : 073 BPM P-R Int : 136 ms QRS Dur : 084 ms QT Int : 422 ms P-R-T Axes : 046 -13 110 degrees QTc Int : 464 ms NORMAL SINUS RHYTHM POSSIBLE LEFT ATRIAL ENLARGEMENT LEFT VENTRICULAR HYPERTROPHY WITH REPOLARIZATION ABNORMALITY ABNORMAL ECG WHEN COMPARED WITH ECG OF 07-DEC-2016 01:00, NO SIGNIFICANT CHANGE WAS FOUND Confirmed by RYAN TRIMBLE, CLAUDIA ([id number]) on 10/30/2017 1:29:57 PM Referred By: Confirmed By:CLAUDIA DAVIS MD
== END 2017-10-29 16:55 | disposition home or self-care (01) ==
LOC: JER 10:20
DX: I10 Essential (primary) hypertension (principal); I12.0 Hypertensive chronic kidney disease with stage 5 chronic kidney disease or end stage renal disease; N18.6 End stage renal disease; Z99.2 Dependence on renal dialysis; Z95.0 Presence of cardiac pacemaker; E78.5 Hyperlipidemia, unspecified
CPT/HCPCS: 36415; 71046-TC-FY; 80053; 84484; 85025; 93005; 93010; 99284-25

== ENCOUNTER 2018-07-28 23:37 | Inpatient (IN) | payer OTHER ==
--- NOTE | 2018-07-29 01:32 | PDOC ---
History of Present Illness - General Chief Complaint: Revisit, Lab Variance Stated Complaint: LIVER Time Seen by Provider: 07/29/18 01:32 History Source: Parent(s) - History of Present Illness Initial Comments: 07/29/18 02:10 52 YEAR OLD FEMALE c/o upper abdominal pain, and noted to have elevated Lipase with PCP send to the ED for evaluation. patient reports some upper quadrant discomforts for 3 days. denies Nausea, vomiting. PMHX: ESRD (on HD Mon, Fri, and Fri), HLD, and HTN Past History - Past Medical History Allergies/Adverse Reactions: Allergies Allergy/AdvReac Type Severity Reaction Status Date / Time Penicillins Allergy Severe Difficulty Verified 07/29/18 04:16 Breathing doxercalciferol AdvReac Intermediate Itching Verified 07/29/18 04:17 [From Hectorol] Home Medications: Ambulatory Orders Amlodipine Besylate [Norvasc -] 5 mg PO DAILY #30 tablet 12/08/17 Aspirin [ASA -] 81 mg PO DAILY #30 tab.chew 12/08/17 Atorvastatin Ca [Lipitor] 80 mg PO HS #30 tablet 12/08/17 Carvedilol [Coreg -] 25 mg PO BID #60 tablet 12/08/17 Cinacalcet HCl [Sensipar -] 90 mg PO DAILY #90 tab 12/08/17 Clopidogrel Bisulfate [Plavix -] 75 mg PO DAILY #30 tablet 12/08/17 Losartan Potassium [Cozaar -] 100 mg PO DAILY #30 tablet 12/08/17 Sevelamer Carbonate [Renvela Powder Packet -] 0.8 gm PO TIDCM #90 powd.pack 02/17 levoFLOXacin [Levaquin -] 250 mg PO Q48H #1 tablet 12/08/17 Cardiac Disorders: Yes (PACEMAKER INSERTION) COPD: No Dialysis: Yes (M,W,F) Disorders: Yes (ESRD , m-w-f) HTN: Yes - Surgical History Cardiac Surgery: Yes (PACEMAKER) - Immunization History Immunization Up to Date: Yes - Suicide/Smoking/Psychosocial Hx Smoking Status: No Smoking History: Unknown if ever smoked Have you smoked in the past 12 months: No Number of Cigarettes Smoked Daily: 0 Information on smoking cessation initiated: No Hx Alcohol Use: No Drug/Substance Use Hx: No Substance Use Type: None Hx Substance Use Treatment: No Review of Systems - Review of Systems Able to Perform ROS?: Yes Is the patient limited Amharic proficient: No Constitutional: No: Symptoms Reported, See HPI, Chills, Diaphoresis, Fever, Loss of Appetite, Malaise, Night Sweats, Weakness, Weight Stable, Unintentional Wgt. Loss, Unexplained wgt Loss, Other ABD/GI: Yes: Abdominal cramping. No: Symptoms Reported, See HPI, Abdominal Distended, Abd. Pain w/ defecation, Blood Streaked Bowels, Constipated, Diarrhea , Difficulty Swallowing, Nausea, Poor Appetite, Poor Fluid Intake, Rectal Bleeding, Vomiting, Indigestion, Tarry Stools, Other : No: Symptoms Reported, See HPI, Burning, Dysuria, Discharge, Frequency, Flank Pain, Hematuria, Incontinence, Pain, Urgency, Testicular Mass, Testicular Swelling, Lesions, Testicular Pain, Other *Physical Exam - Vital Signs Last Vital Signs Temp Pulse Resp BP Pulse Ox 99 F 62 20 122/52 L 99 07/29/18 00:37 07/29/18 00:37 07/29/18 00:37 07/29/18 00:37 07/29/18 00:37 - Physical Exam General Appearance: Yes: Appropriately Dressed, Cachetic Respiratory/Chest: positive: Lungs Clear, Normal Breath Sounds Gastrointestinal/Abdominal: positive: Normal Bowel Sounds, Tender (minimal upper quadrant tenderness), Soft Extremity: positive: Normal Capillary Refill, Normal Inspection, Normal Range of Motion Integumentary: positive: Normal Color, Dry, Warm Neurologic: positive: Fully Oriented, Alert Moderate Sedation - Procedure Monitoring Vital Signs: Procedure Monitoring Vital Signs Temperature 99 F 07/29/18 00:37 Pulse Rate 62 07/29/18 00:37 Respiratory Rate 20 07/29/18 00:37 Blood Pressure 122/52 L 07/29/18 00:37 O2 Sat by Pulse Oximetry (%) 99 07/29/18 00:37 ED Treatment Course - LABORATORY CBC & Chemistry Diagram: 07/30/18 07:27 07/30/18 07:27 Medical Decision Making - Medical Decision Making 07/29/18 03:33 A: pancreatitis P: labs LIpase previously with PCP 270 now 819 CTAP: pending 07/29/18 03:45 patient signed out to Dr. Tavarez *DC/Admit/Observation/Transfer Diagnosis at time of Disposition: ESRD (end stage renal disease) on dialysis, Elevated lipase Pancreatitis Qualifiers: Chronicity: acute Pancreatitis type: biliary Acute pancreatitis complication: unspecified Qualified Code(s): K85.10 - Biliary acute pancreatitis without necrosis or infection - Referrals - Patient Instructions - Post Discharge Activity
--- NOTE | 2018-07-29 01:41 | PDOC ---
*Physical Exam - Vital Signs Last Vital Signs Temp Pulse Resp BP Pulse Ox 99 F 62 20 122/52 L 99 07/29/18 00:37 07/29/18 00:37 07/29/18 00:37 07/29/18 00:37 07/29/18 00:37 ED Treatment Course - LABORATORY CBC & Chemistry Diagram: 07/29/18 02:15 07/29/18 02:15 Medical Decision Making - Medical Decision Making 07/29/18 01:41 Patient seen by the advanced practice provider under my direct supervision. Ancillary testing reviewed as necessary. I agree with plan as outlined by the advanced practice provider. *DC/Admit/Observation/Transfer Diagnosis at time of Disposition: ESRD (end stage renal disease) on dialysis, Elevated lipase - Referrals Referrals: Niru Medina MD [Primary Care Provider] - - Patient Instructions - Post Discharge Activity
[2018-07-29 02:33] LABS: BASO % 0.8 % (0-2.0); HEMATOCRIT 37.1 % (32.4-45.2); HEMOGLOBIN 12.9 GM/dL (10.7-15.3); LYMPH % 25.3 % (8-40); MCH 33.1 pg (25.7-33.7); MCHC 34.7 g/dl (32.0-36.0); MEAN CELL VOLUME 95.4 fl (80-96); MEAN PLT VOLUME 9.5 fl (7.5-11.1); MONO % 8.2 % (3.8-10.2); NEUT % 58.7 % (42.8-82.8); PLATELET COUNT 117 K/MM3 (134-434); RBC 3.89 M/mm3 (3.60-5.2); RDW 14.4 % (11.6-15.6); WHITE BLOOD COUNT 4.5 K/mm3 (4.0-10.0)
[2018-07-29 03:02] LABS: ALBUMIN 3.6 g/dl (3.4-5.0); ALK PHOS 275 U/L (45-117); ANION GAP 9 MMOL/L (8-16); BILIRUBIN,TOTAL 0.4 mg/dL (0.2-1); BLOOD UREA NITROGEN 56 mg/dL (7-18); CALCIUM 8.3 mg/dL (8.5-10.1); CHLORIDE 98 mmol/L (98-107); CO2 29 mmol/L (21-32); GLUCOSE,RANDOM 108 mg/dL (74-106); LIPASE 819 U/L (73-393); POTASSIUM 4.9 mmol/L (3.5-5.1); SGOT/AST 24 U/L (15-37); SGPT/ALT 16 U/L (13-61); SODIUM 136 mmol/L (136-145); TOT PROT 7.1 g/dl (6.4-8.2)
[2018-07-29 03:04] LABS: CREATININE 10.9 mg/dL (0.55-1.3)
[2018-07-29] MEDS ORDERED: ACETAMINOPHEN 1000 MG/100 ML VIAL (NON FORMULARY) IVPB PRN (04:15)
--- NOTE | 2018-07-29 04:16 | HP ---
CHIEF COMPLAINT: epigastric pain PCP: Adam HISTORY OF PRESENT ILLNESS: 52yo woman with epigastric pain for last 3-4 days, about a 5/10, no radiation, related to some heartburn. She had lipase performed by her pcp which was mildly elevated and was instructed to come to ER for evaluation. Patient tolerates PO, denied nausea. She denied any history of gallstones or etoh abuse. ER course was notable for: (1) cxr (2) ct abdomen/pelvis (3) Recent Travel: no PAST MEDICAL HISTORY: ESRD on HD (m-w-f), htn, PAST SURGICAL HISTORY: left arm avf Social History: Smoking: Alcohol: Drugs: Family History: none Allergies Penicillins Allergy (Mild, Verified 12/01/17 03:04) Rash doxercalciferol [From Hectorol] Adverse Reaction (Intermediate, Verified 03:04) Itching HOME MEDICATIONS: Home Medications Medication Instructions Recorded Amlodipine Besylate [Norvasc -] 5 mg PO DAILY #30 tablet 12/08/17 Aspirin [ASA -] 81 mg PO DAILY #30 tab.chew 12/08/17 Atorvastatin Ca [Lipitor] 80 mg PO HS #30 tablet 12/08/17 Carvedilol [Coreg -] 25 mg PO BID #60 tablet 12/08/17 Cinacalcet HCl [Sensipar -] 90 mg PO DAILY #90 tab 12/08/17 Clopidogrel Bisulfate [Plavix -] 75 mg PO DAILY #30 tablet 12/08/17 Losartan Potassium [Cozaar -] 100 mg PO DAILY #30 tablet 12/08/17 Sevelamer Carbonate [Renvela 0.8 gm PO TIDCM #90 powd.pack 12/08/17 Powder Packet -] levoFLOXacin [Levaquin -] 250 mg PO Q48H #1 tablet 12/08/17 REVIEW OF SYSTEMS CONSTITUTIONAL: at Absent: fever, chills, diaphoresis, generalized weakness, malaise, loss of appetite, weight change HEENT: Absent: rhinorrhea, nasal congestion, throat pain, throat swelling, difficulty swallowing, mouth swelling, ear pain, eye pain, visual changes CARDIOVASCULAR: Absent: chest pain, syncope, palpitations, irregular heart rate, lightheadedness , peripheral edema RESPIRATORY: Absent: cough, shortness of breath, dyspnea with exertion, orthopnea, wheezing, stridor, hemoptysis GASTROINTESTINAL: Absent:, abdominal distension, nausea, vomiting, diarrhea, constipation, melena , hematochezia present- abdominal pain GENITOURINARY: Absent: dysuria, frequency, urgency, hesitancy, hematuria, flank pain, genital pain MUSCULOSKELETAL: Absent: myalgia, arthralgia, joint swelling, back pain, neck pain SKIN: Absent: rash, itching, pallor HEMATOLOGIC/IMMUNOLOGIC: Absent: easy bleeding, easy bruising, lymphadenopathy, frequent infections ENDOCRINE: Absent: unexplained weight gain, unexplained weight loss, heat intolerance, cold intolerance NEUROLOGIC: Absent: headache, focal weakness or paresthesias, dizziness, unsteady gait, seizure, mental status changes, bladder or bowel incontinence PSYCHIATRIC: Absent: anxiety, depression, suicidal or homicidal ideation, hallucinations. PHYSICAL EXAMINATION Vital Signs - 24 hr 07/29/18 07/29/18 07/29/18 00:37 02:00 03:45 Temperature 99 F 98.6 F Pulse Rate 62 Pulse Rate [ 62 Right Radial] Respiratory 20 16 Rate Blood Pressure 122/52 L Blood Pressure 146/68 [Right Arm] O2 Sat by Pulse 99 99 98 Oximetry (%) GENERAL: Awake, alert, and fully oriented, in no acute distress. HEAD: Normal with no signs of trauma. EYES: Pupils equal, round and reactive to light, extraocular movements intact, sclera anicteric, conjunctiva clear. No lid lag. EARS, NOSE, THROAT: Ears normal, nares patent, oropharynx clear without exudates. Moist mucous membranes. NECK: Normal range of motion, supple without lymphadenopathy, JVD, or masses. LUNGS: Breath sounds equal, clear to auscultation bilaterally. No wheezes, and no crackles. No accessory muscle use. HEART: Regular rate and rhythm, normal S1 and S2 holosystolic murmur ABDOMEN: Soft, mild tenderness on palpation of epigastric region of abdomen, not distended, normoactive bowel sounds, no guarding, no rebound, no masses. No hepatomegaly or splenomegaly. MUSCULOSKELETAL: Normal range of motion at all joints. No bony deformities or tenderness. No CVA tenderness. UPPER EXTREMITIES: 2+ pulses, warm, well-perfused. No cyanosis. No clubbing. No peripheral edema. LOWER EXTREMITIES: 2+ pulses, warm, well-perfused. No calf tenderness. No peripheral edema. NEUROLOGICAL: Cranial nerves II-XII intact. Normal speech. Normal gait. PSYCHIATRIC: Cooperative. Good eye contact. Appropriate mood and affect. SKIN: Warm, dry, normal turgor, no rashes or lesions noted, normal capillary refill. Laboratory Results - last 24 hr 07/29/18 07/29/18 07/29/18 02:15 02:15 02:15 WBC 4.5 RBC 3.89 Hgb 12.9 Hct 37.1 D MCV 95.4 MCH 33.1 MCHC 34.7 RDW 14.4 Plt Count 117 L D MPV 9.5 Absolute Neuts (auto) 2.6 Neutrophils % 58.7 Lymphocytes % 25.3 D Monocytes % 8.2 Eosinophils % 7.0 H Basophils % 0.8 Nucleated RBC % 0 Sodium 136 Potassium 4.9 Chloride 98 Carbon Dioxide 29 Anion Gap 9 BUN 56 H Creatinine 10.9 H* Creat Clearance w eGFR 3.68 Random Glucose 108 H Calcium 8.3 L Total Bilirubin 0.4 AST 24 ALT 16 Alkaline Phosphatase 275 H Troponin I 0.06 H Total Protein 7.1 Albumin 3.6 Lipase 819 H ASSESSMENT/PLAN: #Epigastric pain- may be pancreatitis vs gastritis/GERD. Uncertain if pancreatitis as lipase has been chronically elevated from baseline. CT of abd/ pelvis will help to rule out. If pancreatitis, differential includes hyperlipidemia, gallstones, medication induced. -ct/abd pelvis f/u -lipid panel -tylenol iv prn for pain -no IV fluid as pt is esrd -trend lfts -protonix empirically for possible gastritis/ GERD #ESRD - 2/2 to htn -renal consult to restart HD -avoid losartan as it can cause severe hyperkalemia in setting of renal failure -atorvastatin #HTN -amlodipine -carvedilol #dvt ppx -heparin sc Visit type - Emergency Visit Emergency Visit: Yes Care time: The patient presented to the Emergency Department on the above date and was hospitalized for further evaluation of their emergent condition. - New Patient This patient is new to me today: Yes Date on this admission: 07/29/18 - Critical Care Critical Care patient: No
[2018-07-29 07:43] VITALS: BMI 22.7
[2018-07-29 08:52] LABS: HEMATOCRIT 39.4 % (32.4-45.2); HEMOGLOBIN 13.6 GM/dL (10.7-15.3); MCH 32.9 pg (25.7-33.7); MCHC 34.5 g/dl (32.0-36.0); MEAN CELL VOLUME 95.6 fl (80-96); MEAN PLT VOLUME 9.5 fl (7.5-11.1); PLATELET COUNT 118 K/MM3 (134-434); RBC 4.13 M/mm3 (3.60-5.2); RDW 14.3 % (11.6-15.6); WHITE BLOOD COUNT 3.9 K/mm3 (4.0-10.0)
[2018-07-29] MEDS: CLOPIDOGREL BISULFATE 75 MG TABLET (FP) PO SCH (09:17)
[2018-07-29] MEDS: HEPARIN NA (PORCINE) 5,000 UNITS/ML 1ML VIAL SQ SCH ×2 (09:17→22:03)
[2018-07-29] MEDS: PANTOPRAZOLE 40 MG TABLET (FP) PO SCH (09:17)
[2018-07-29] MEDS: amLODIPine BESYLATE 5 MG TABLET (FP) PO SCH (09:17)
[2018-07-29] MEDS: ASPIRIN 81 MG CHEWABLE TABLETS PO SCH (09:17)
[2018-07-29] MEDS: CARVEDILOL 25 MG TABLET (FP) PO SCH ×2 (09:17→22:03)
[2018-07-29 09:27] LABS: ALBUMIN 3.9 g/dl (3.4-5.0); ALK PHOS 285 U/L (45-117); ANION GAP 12 MMOL/L (8-16); BILIRUBIN,DIRECT 0.1 mg/dL (0.0-0.2); BILIRUBIN,TOTAL 0.5 mg/dL (0.2-1); BLOOD UREA NITROGEN 57 mg/dL (7-18); CALCIUM 8.3 mg/dL (8.5-10.1); CHLORIDE 99 mmol/L (98-107); CHOLESTEROL 203 mg/dL (50-200); CO2 25 mmol/L (21-32); GLUCOSE,RANDOM 93 mg/dL (74-106); HDL CHOLESTEROL 58 mg/dL (40-60); SGOT/AST 25 U/L (15-37); SGPT/ALT 16 U/L (13-61); SODIUM 136 mmol/L (136-145); TOT PROT 7.3 g/dl (6.4-8.2); TRIGLYCERIDES 152 mg/dL (0-150)
[2018-07-29 09:42] LABS: CREATININE 11.4 mg/dL (0.55-1.3)
--- NOTE | 2018-07-29 10:44 | EKG ---
Test Reason : Blood Pressure : / mmHG Vent. Rate : 060 BPM Atrial Rate : 060 BPM P-R Int : 150 ms QRS Dur : 102 ms QT Int : 454 ms P-R-T Axes : 008 011 095 degrees QTc Int : 454 ms NORMAL SINUS RHYTHM T WAVE ABNORMALITY, CONSIDER LATERAL ISCHEMIA ABNORMAL ECG WHEN COMPARED WITH ECG OF 04-DEC-2017 11:58, ST NO LONGER DEPRESSED IN LATERAL LEADS T WAVE INVERSION NO LONGER EVIDENT IN INFERIOR LEADS T WAVE INVERSION NO LONGER EVIDENT IN ANTERIOR LEADS Confirmed by KORY TRIMBLE, ELBA ([id number]) on 07/29/2018 10:43:41 AM Referred By: Confirmed By:ELBA HORN MD
[2018-07-29] MEDS ORDERED: LIDOCAINE 2.5%/PRILOCAINE 2.5% (5 Gram/TUBE) TP ONE (11:25)
--- NOTE | 2018-07-29 11:33 | CONSULT ---
Consult Consult Specialty:: Nephrology Reason for Consultation:: ESRD - History of Present Illness Chief Complaint: abdominal pain History of Present Illness: Pt is a 52 year old female with pmhx of esrd who presents with abdominal pain. She was found to have elevated at her primary's office and was sent in for evaluation. She has esrd and is on HD. She on a MWF schedule. She was last dialyzed on Friday. Today is her HD day. She denies shortness of breath. She denies lower ext edema. She denies nausea or vomiting. - History Source History Provided By: Patient - Past Medical History Cardio/Vascular: Yes: HTN, Hyperlipdemia Renal/: Yes: Renal Failure, Hemodialysis ...LMP: 06/02/13 - Past Surgical History Past Surgical History: Yes: AV Fistula/Graft - Alcohol/Substance Use Hx Alcohol Use: No History of Substance Use: reports: None - Smoking History Smoking history: Unknown if ever smoked Have you smoked in the past 12 months: No Aproximately how many cigarettes per day: 0 - Social History ADL: Independent History of Recent Travel: No Home Medications - Allergies Allergies/Adverse Reactions: Allergies Allergy/AdvReac Type Severity Reaction Status Date / Time Penicillins Allergy Severe Difficulty Verified 07/29/18 04:16 Breathing doxercalciferol AdvReac Intermediate Itching Verified 07/29/18 04:17 [From Hectorol] - Home Medications Home Medications: Ambulatory Orders Amlodipine Besylate [Norvasc -] 5 mg PO DAILY #30 tablet 12/08/17 Aspirin [ASA -] 81 mg PO DAILY #30 tab.chew 12/08/17 Atorvastatin Ca [Lipitor] 80 mg PO HS #30 tablet 12/08/17 Carvedilol [Coreg -] 25 mg PO BID #60 tablet 12/08/17 Cinacalcet HCl [Sensipar -] 90 mg PO DAILY #90 tab 12/08/17 Clopidogrel Bisulfate [Plavix -] 75 mg PO DAILY #30 tablet 12/08/17 Losartan Potassium [Cozaar -] 100 mg PO DAILY #30 tablet 12/08/17 Sevelamer Carbonate [Renvela Powder Packet -] 0.8 gm PO TIDCM #90 powd.pack 02/17 levoFLOXacin [Levaquin -] 250 mg PO Q48H #1 tablet 07/09/18 Family Disease History - Family Disease History Family History: Denies Review of Systems - Review of Systems Constitutional: reports: Malaise Eyes: reports: No Symptoms HENT: reports: No Symptoms Neck: reports: No Symptoms Respiratory: reports: No Symptoms Gastrointestinal: reports: Abdominal Pain Genitourinary: reports: No Symptoms Musculoskeletal: reports: No Symptoms Integumentary: reports: No Symptoms Neurological: reports: No Symptoms Endocrine: reports: No Symptoms Hematology/Lymphatic: reports: No Symptoms Physical Exam Vital Signs: Vital Signs Temperature 98.2 F 07/29/18 09:00 Pulse Rate 74 07/29/18 09:00 Respiratory Rate 18 07/29/18 09:00 Blood Pressure 153/69 07/29/18 09:00 O2 Sat by Pulse Oximetry (%) 95 07/29/18 09:00 Constitutional: Yes: Calm Eyes: Yes: Conjunctiva Clear HENT: Yes: Atraumatic Neck: Yes: Supple Cardiovascular: Yes: S1, S2 Respiratory: Yes: CTA Bilaterally Gastrointestinal: Yes: Soft Renal/: Yes: WNL Musculoskeletal: Yes: WNL Edema: No Neurological: Yes: Oriented Psychiatric: Yes: Oriented Labs: CBC, BMP 07/29/18 08:15 07/29/18 08:15 Laboratory Tests 07/29/18 07/29/18 07/29/18 02:15 02:15 08:15 WBC 4.5 3.9 L Hgb 12.9 13.6 Plt Count 117 L D 118 L Sodium Potassium Chloride Carbon Dioxide Anion Gap BUN 56 H Creatinine 10.9 H* Lipase 819 H 07/29/18 08:15 WBC Hgb Plt Count Sodium 136 Potassium 5.0 Chloride 99 Carbon Dioxide 25 Anion Gap 12 BUN 57 H Creatinine 11.4 H* Lipase Imaging - Results Chest X-ray: Report Reviewed Cat Scan: Report Reviewed Problem List - Problems (1) ESRD (end stage renal disease) on dialysis Code(s): N18.6 - END STAGE RENAL DISEASE; Z99.2 - DEPENDENCE ON RENAL DIALYSIS (2) Elevated lipase Code(s): R74.8 - ABNORMAL LEVELS OF OTHER SERUM ENZYMES Assessment/Plan Current Medications Generic Name Dose Route Start Last Admin Trade Name Freq PRN Reason Stop Dose Admin Acetaminophen 1,000 mg 07/29/18 04:15 Ofirmev Injection - IVPB Q6H PRN PAIN 1-3 Amlodipine Besylate 5 mg 07/29/18 10:00 07/29/18 09:17 Norvasc - PO 5 mg DAILY [facility] Administration Aspirin 81 mg 07/29/18 10:00 07/29/18 09:17 Asa - PO 81 mg DAILY [facility] Administration Atorvastatin Calcium 80 mg 07/29/18 22:00 Lipitor - PO HS [facility] Carvedilol 25 mg 07/29/18 10:00 07/29/18 09:17 Coreg - PO 25 mg BID [facility] Administration Cinacalcet 90 mg 07/29/18 10:00 Sensipar - PO DAILY [facility] Clopidogrel Bisulfate 75 mg 07/29/18 10:00 07/29/18 09:17 Plavix - PO 75 mg DAILY [facility] Administration Heparin Sodium (Porcine) 5,000 unit 07/29/18 10:00 07/29/18 09:17 Heparin - SQ 5,000 unit BID [facility] Administration Lidocaine/Prilocaine 1 applic 07/29/18 11:25 Emla - TP 07/29/18 11:26 ONCE ONE Pantoprazole Sodium 40 mg 07/29/18 10:00 07/29/18 09:17 Protonix - PO 40 mg DAILY [facility] Administration Impression 1. ESRD 2. elevated lipase 3. hx of anemia 4. HTN 5. gerd 6. cad 7. hld Plan - HD today - potassium treated with HD - cardio input appreciated - renal diet, low potassium - will follow Dr Wright
[2018-07-29] MEDS ORDERED: SODIUM CHLORIDE 250 ML IV PRN (11:34)
--- NOTE | 2018-07-29 15:19 | PN ---
Progress Note, Physician Chief Complaint: Epigastric pain ESRD History of Present Illness: Previous notes and events reviewed awake and alert examined in dialysis c/o R sided chest pain - Current Medication List Current Medications: Active Medications Acetaminophen (Ofirmev Injection -) 1,000 mg IVPB Q6H PRN PRN Reason: PAIN 1-3 Amlodipine Besylate (Norvasc -) 5 mg PO DAILY [facility] Last Admin: 07/29/18 09:17 Dose: 5 mg Aspirin (Asa -) 81 mg PO DAILY [facility] Last Admin: 07/29/18 09:17 Dose: 81 mg Atorvastatin Calcium (Lipitor -) 80 mg PO HS [facility] Carvedilol (Coreg -) 25 mg PO BID [facility] Last Admin: 07/29/18 09:17 Dose: 25 mg Cinacalcet (Sensipar -) 90 mg PO DAILY [facility] Clopidogrel Bisulfate (Plavix -) 75 mg PO DAILY [facility] Last Admin: 07/29/18 09:17 Dose: 75 mg Heparin Sodium (Porcine) (Heparin -) 5,000 unit SQ BID [facility] Last Admin: 07/29/18 09:17 Dose: 5,000 unit Sodium Chloride (Normal Saline -) 250 mls @ 3,000 mls/hr IV PRN PRN PRN Reason: Hypotension during Dialysis Stop: 07/30/18 11:34 Pantoprazole Sodium (Protonix -) 40 mg PO DAILY [facility] Last Admin: 07/29/18 09:17 Dose: 40 mg - Objective Vital Signs: Vital Signs Temperature 98.7 F 07/29/18 12:40 Pulse Rate 65 07/29/18 14:30 Respiratory Rate 18 07/29/18 14:30 Blood Pressure 149/67 07/29/18 14:30 O2 Sat by Pulse Oximetry (%) 95 07/29/18 09:00 Constitutional: Yes: Well Nourished, No Distress, Calm Eyes: Yes: Conjunctiva Clear HENT: Yes: Atraumatic Cardiovascular: Yes: Regular Rate and Rhythm Respiratory: Yes: Regular, CTA Bilaterally Gastrointestinal: Yes: Normal Bowel Sounds, Soft, Tenderness (RUQ and LLQ) Extremities: Yes: Other (L AV fistula) Edema: Yes (trace L pedal edema) Neurological: Yes: Alert, Oriented Psychiatric: Yes: Alert, Oriented Labs: CBC, BMP 07/29/18 08:15 07/29/18 08:15 Problem List - Problems (1) ESRD (end stage renal disease) on dialysis Assessment/Plan: -renal on board -continue HD on MWF -renal diet Code(s): N18.6 - END STAGE RENAL DISEASE; Z99.2 - DEPENDENCE ON RENAL DIALYSIS (2) Elevated lipase Assessment/Plan: -GI consult placed -lipase 819 -will monitor lipase level Code(s): R74.8 - ABNORMAL LEVELS OF OTHER SERUM ENZYMES (3) Pancreatitis Assessment/Plan: -GI consult placed Code(s): K85.90 - ACUTE PANCREATITIS WITHOUT NECROSIS OR INFECTION, UNSP Qualifiers: Chronicity: acute Pancreatitis type: biliary Acute pancreatitis complication: unspecified Qualified Code(s): K85.10 - Biliary acute pancreatitis without necrosis or infection (4) Atypical chest pain Assessment/Plan: -cardiology consult placed -troponin 0.06, repeat trop ordered STAT -will trend troponin level Code(s): R07.89 - OTHER CHEST PAIN (5) HTN (hypertension) Assessment/Plan: -continue norvasc and coreg -low Na diet Code(s): I10 - ESSENTIAL (PRIMARY) HYPERTENSION Qualifiers: Hypertension type: essential hypertension Qualified Code(s): I10 - Essential (primary) hypertension Assessment/Plan see problem list dvt ppx
--- NOTE | 2018-07-29 16:09 | CON.CARD ---
Consult Consult Specialty:: Cardiology Referred by:: LUCY Leal Reason for Consultation:: Diastolic failure - History of Present Illness Chief Complaint: Abd pain History of Present Illness: Pt is a 52 year old female with pmhx of esrd on HD MWF, diastolic failure, hypertensive cardiomyopathy with h/o failure, hyperlipidemia who presents with abdominal pain, CT scan shows recal retention. She denies chest pain, shortness of breath, near or true syncope, lower ext edema, palpitations, nausea or vomiting. Seen at HD. - History Source History Provided By: Patient Limitations to Obtaining History: No Limitations - Past Medical History Cardio/Vascular: Yes: HTN, Hyperlipdemia Renal/: Yes: Renal Failure, Hemodialysis ...LMP: 06/02/13 - Past Surgical History Past Surgical History: Yes: AV Fistula/Graft - Alcohol/Substance Use Hx Alcohol Use: No History of Substance Use: reports: None - Smoking History Smoking history: Unknown if ever smoked Have you smoked in the past 12 months: No Aproximately how many cigarettes per day: 0 - Social History ADL: Independent History of Recent Travel: No Home Medications - Allergies Allergies/Adverse Reactions: Allergies Allergy/AdvReac Type Severity Reaction Status Date / Time Penicillins Allergy Severe Difficulty Verified 07/29/18 04:16 Breathing doxercalciferol AdvReac Intermediate Itching Verified 07/29/18 04:17 [From Hectorol] - Home Medications Home Medications: Ambulatory Orders Amlodipine Besylate [Norvasc -] 5 mg PO DAILY #30 tablet 12/08/17 Aspirin [ASA -] 81 mg PO DAILY #30 tab.chew 12/08/17 Atorvastatin Ca [Lipitor] 80 mg PO HS #30 tablet 12/08/17 Carvedilol [Coreg -] 25 mg PO BID #60 tablet 12/08/17 Cinacalcet HCl [Sensipar -] 90 mg PO DAILY #90 tab 12/08/17 Clopidogrel Bisulfate [Plavix -] 75 mg PO DAILY #30 tablet 12/08/17 Losartan Potassium [Cozaar -] 100 mg PO DAILY #30 tablet 12/08/17 Sevelamer Carbonate [Renvela Powder Packet -] 0.8 gm PO TIDCM #90 powd.pack 02/17 levoFLOXacin [Levaquin -] 250 mg PO Q48H #1 tablet 12/08/17 Review of Systems - Review of Systems Gastrointestinal: reports: Abdominal Pain, Constipation Vital Signs: Vital Signs Temperature 98.7 F 07/29/18 12:40 Pulse Rate 61 07/29/18 15:00 Respiratory Rate 18 07/29/18 15:00 Blood Pressure 161/64 07/29/18 15:00 O2 Sat by Pulse Oximetry (%) 95 07/29/18 09:00 Constitutional: Yes: No Distress, Calm, Thin Neck: Yes: Supple Respiratory: Yes: Regular, Diminished Gastrointestinal: Yes: Soft, Hypoactive Bowel Sounds Cardiovascular: Yes: Regular Rate and Rhythm JVD: No Carotid Bruit: No Heart Sounds: Yes: S1, S2 Edema: No - Other Data Labs, Other Data: CBC, BMP 07/29/18 08:15 07/29/18 08:15 Troponin, BNP 07/29/18 07/29/18 02:15 14:55 Troponin I 0.06 H 0.06 H Troponin, BNP 07/29/18 07/29/18 02:15 14:55 Troponin I 0.06 H 0.06 H NSR @ 60 nonspec T wave changes Prior Cardiac Procedures: Cardiac Catheterization Ejection Fraction %: LVEF > or = 40 % Imaging - Results Cat Scan: Report Reviewed (Atrophic kidneys c/w medicorenal disease, fecal retention) Problem List - Problems (1) 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 Code(s): I11.9 - HYPERTENSIVE HEART DISEASE WITHOUT HEART FAILURE (2) Diastolic dysfunction Code(s): I51.89 - OTHER ILL-DEFINED HEART DISEASES (3) ESRD (end stage renal disease) on dialysis Code(s): N18.6 - END STAGE RENAL DISEASE; Z99.2 - DEPENDENCE ON RENAL DIALYSIS (4) Anemia Code(s): D64.9 - ANEMIA, UNSPECIFIED Qualifiers: Anemia type: due to chronic kidney disease (5) Demand ischemia Code(s): I24.8 - OTHER FORMS OF ACUTE ISCHEMIC HEART DISEASE (6) ESRD (end stage renal disease) Code(s): N18.6 - END STAGE RENAL DISEASE (7) HTN, goal below 150/90 Code(s): I10 - ESSENTIAL (PRIMARY) HYPERTENSION (8) Hypercholesterolemia Code(s): E78.00 - PURE HYPERCHOLESTEROLEMIA, UNSPECIFIED Assessment/Plan MPI study revealed small zone of inferolateral wall ischemia with mild global LV hypokinesia and LV EF of 52% Echocardiography dated 12/02/2017 revealed Mod cLVH with mildly decreased LV systolic function, mild RVH with normal function, LVEF 45-50%, moderate LAE mild AR and MR Echocardiography dated 11/26/16 revealed normal LV size and function, with trace to mild MR R&LHc at [facility] 12/21/17. Moderate pulm HTN PAP 61/23/38 euvolemic PCWP 13 LVEDP 15 mmHg, non-obstructive CAD with diffuse distal LAD disease not amenable to PCI, normal LCx and RCA, preserved LVEF 55%, no aortic stenosis or mitral regurgitation, Mynx deployed right [employer] access site, plan for continued medical therapy, HD per renal, outpatient f/u for management of restrictive cardiomyopathy and pulm HTN. 1. Abd pain, fecal retention 2. Diastolic dysfunction w/ h/o failure 3. CAD, demand ischemia 4. Hypertensive cardiovascular disease 5. Hypercholesterolemia 6. ESRD on HD PLAN: 1. Continue ASA 81 qd and Plavix 75 qd with caution and with close monitoring of platelet count 2. Continue Coreg 25 bid 3. Continue Cozaar 100 qd 4. Continue Norvasc 5 qd 5. Continue Lipitor 80 qd 6. HD per renal 7. Bowel regimen 8. Thank you for consultative opportunity
[2018-07-29] MEDS: CINACALCET HCL 30 MG TAB (FP) PO SCH (16:59)
[2018-07-29] MEDS: ATORVASTATIN CA 80 MG TABLET (FP) PO SCH (22:03)
[2018-07-30 08:03] LABS: HEMATOCRIT 36.9 % (32.4-45.2); HEMOGLOBIN 12.6 GM/dL (10.7-15.3); MCH 32.3 pg (25.7-33.7); MEAN CELL VOLUME 94.8 fl (80-96); MEAN PLT VOLUME 9.1 fl (7.5-11.1); PLATELET COUNT 111 K/MM3 (134-434); RBC 3.89 M/mm3 (3.60-5.2); WHITE BLOOD COUNT 3.8 K/mm3 (4.0-10.0)
[2018-07-30 08:32] LABS: ALBUMIN 3.3 g/dl (3.4-5.0); ALK PHOS 228 U/L (45-117); ANION GAP 10 MMOL/L (8-16); BILIRUBIN,TOTAL 0.4 mg/dL (0.2-1); BLOOD UREA NITROGEN 20 mg/dL (7-18); CALCIUM 7.7 mg/dL (8.5-10.1); CHLORIDE 101 mmol/L (98-107); CO2 30 mmol/L (21-32); CREATININE 6.6 mg/dL (0.55-1.3); GLUCOSE,RANDOM 87 mg/dL (74-106); POTASSIUM 4.2 mmol/L (3.5-5.1); SGOT/AST 24 U/L (15-37); SGPT/ALT 17 U/L (13-61); SODIUM 141 mmol/L (136-145); TOT PROT 6.4 g/dl (6.4-8.2)
[2018-07-30 08:44] LABS: LIPASE 997 U/L (73-393)
[2018-07-30] MEDS: CARVEDILOL 25 MG TABLET (FP) PO SCH ×2 (09:23→22:26)
[2018-07-30] MEDS: CLOPIDOGREL BISULFATE 75 MG TABLET (FP) PO SCH (09:23)
[2018-07-30] MEDS: PANTOPRAZOLE 40 MG TABLET (FP) PO SCH (09:23)
[2018-07-30] MEDS: ASPIRIN 81 MG CHEWABLE TABLETS PO SCH (09:23)
[2018-07-30] MEDS: HEPARIN NA (PORCINE) 5,000 UNITS/ML 1ML VIAL SQ SCH ×2 (09:23→22:26)
[2018-07-30] MEDS: amLODIPine BESYLATE 5 MG TABLET (FP) PO SCH (09:24)
[2018-07-30] MEDS: CINACALCET HCL 30 MG TAB (FP) PO SCH (09:58)
--- NOTE | 2018-07-30 10:47 | PN ---
Progress Note, Physician History of Present Illness: Abd pain improving, denies chest pain or dyspnea. - Current Medication List Current Medications: Active Medications Acetaminophen (Ofirmev Injection -) 1,000 mg IVPB Q6H PRN PRN Reason: PAIN 1-3 Amlodipine Besylate (Norvasc -) 5 mg PO DAILY [facility] Last Admin: 07/30/18 09:24 Dose: 5 mg Aspirin (Asa -) 81 mg PO DAILY [facility] Last Admin: 07/30/18 09:23 Dose: 81 mg Atorvastatin Calcium (Lipitor -) 80 mg PO HS [facility] Last Admin: 07/29/18 22:03 Dose: 80 mg Carvedilol (Coreg -) 25 mg PO BID [facility] Last Admin: 07/30/18 09:23 Dose: 25 mg Cinacalcet (Sensipar -) 90 mg PO DAILY [facility] Last Admin: 07/30/18 09:58 Dose: 90 mg Clopidogrel Bisulfate (Plavix -) 75 mg PO DAILY [facility] Last Admin: 07/30/18 09:23 Dose: 75 mg Heparin Sodium (Porcine) (Heparin -) 5,000 unit SQ BID [facility] Last Admin: 07/30/18 09:23 Dose: 5,000 unit Sodium Chloride (Normal Saline -) 250 mls @ 3,000 mls/hr IV PRN PRN PRN Reason: Hypotension during Dialysis Stop: 07/30/18 11:34 Pantoprazole Sodium (Protonix -) 40 mg PO DAILY [facility] Last Admin: 07/30/18 09:23 Dose: 40 mg - Objective Vital Signs: Vital Signs Temperature 98.4 F 07/30/18 06:22 Pulse Rate 66 07/30/18 06:22 Respiratory Rate 18 07/30/18 06:22 Blood Pressure 161/77 07/30/18 06:22 O2 Sat by Pulse Oximetry (%) 99 07/30/18 04:00 Constitutional: Yes: No Distress, Calm, Thin Neck: Yes: Supple Cardiovascular: Yes: Regular Rate and Rhythm Respiratory: Yes: Regular, Diminished Gastrointestinal: Yes: Normal Bowel Sounds, Soft Edema: No Labs: CBC, BMP 07/30/18 07:27 07/30/18 07:27 Problem List - Problems (1) 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 Code(s): I11.9 - HYPERTENSIVE HEART DISEASE WITHOUT HEART FAILURE (2) Diastolic dysfunction Code(s): I51.89 - OTHER ILL-DEFINED HEART DISEASES (3) ESRD (end stage renal disease) on dialysis Code(s): N18.6 - END STAGE RENAL DISEASE; Z99.2 - DEPENDENCE ON RENAL DIALYSIS (4) Anemia Code(s): D64.9 - ANEMIA, UNSPECIFIED Qualifiers: Anemia type: due to chronic kidney disease (5) Demand ischemia Code(s): I24.8 - OTHER FORMS OF ACUTE ISCHEMIC HEART DISEASE (6) ESRD (end stage renal disease) Code(s): N18.6 - END STAGE RENAL DISEASE (7) HTN, goal below 150/90 Code(s): I10 - ESSENTIAL (PRIMARY) HYPERTENSION (8) Hypercholesterolemia Code(s): E78.00 - PURE HYPERCHOLESTEROLEMIA, UNSPECIFIED Assessment/Plan MPI study revealed small zone of inferolateral wall ischemia with mild global LV hypokinesia and LV EF of 52% Echocardiography dated 12/02/2017 revealed Mod cLVH with mildly decreased LV systolic function, mild RVH with normal function, LVEF 45-50%, moderate LAE mild AR and MR Echocardiography dated 11/26/16 revealed normal LV size and function, with trace to mild MR R&LHc at [facility] 12/21/17. 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 1. Abd pain, fecal retention 2. Diastolic dysfunction w/ h/o failure 3. CAD, demand ischemia 4. Hypertensive cardiovascular disease, BP not at goal 5. Hypercholesterolemia 6. ESRD on HD 7. Chemical pancreatitis PLAN: 1. Continue ASA 81 qd and Plavix 75 qd with caution and with close monitoring of platelet count, trops flat 2. Continue Coreg 25 bid 3. Continue Cozaar 100 qd 4. Increase Norvasc 10 qd 5. Continue Lipitor 80 qd 6. HD per renal 7. Bowel regimen, trend lipase, f/u GI input
[2018-07-30] MEDS ORDERED: amLODIPine BESYLATE 5 MG TABLET (FP) PO ONE (10:53)
[2018-07-30 11:23] LABS: HBSAG SCREEN Negative (Negative); HEP A AB, IGM Negative (Negative); HEP B CORE AB, TOT Negative (Negative)
--- NOTE | 2018-07-30 14:35 | PN ---
Progress Note, Physician Chief Complaint: patient seen and examined sitting up on bed - Current Medication List Current Medications: Active Medications Acetaminophen (Ofirmev Injection -) 1,000 mg IVPB Q6H PRN PRN Reason: PAIN 1-3 Amlodipine Besylate (Norvasc -) 10 mg PO DAILY [facility] Aspirin (Asa -) 81 mg PO DAILY [facility] Last Admin: 07/30/18 09:23 Dose: 81 mg Atorvastatin Calcium (Lipitor -) 80 mg PO HS [facility] Last Admin: 07/29/18 22:03 Dose: 80 mg Carvedilol (Coreg -) 25 mg PO BID [facility] Last Admin: 07/30/18 09:23 Dose: 25 mg Cinacalcet (Sensipar -) 90 mg PO DAILY [facility] Last Admin: 07/30/18 09:58 Dose: 90 mg Clopidogrel Bisulfate (Plavix -) 75 mg PO DAILY [facility] Last Admin: 07/30/18 09:23 Dose: 75 mg Heparin Sodium (Porcine) (Heparin -) 5,000 unit SQ BID [facility] Last Admin: 07/30/18 09:23 Dose: 5,000 unit Pantoprazole Sodium (Protonix -) 40 mg PO DAILY [facility] Last Admin: 07/30/18 09:23 Dose: 40 mg - Objective Vital Signs: Vital Signs Temperature 98.4 F 07/30/18 14:15 Pulse Rate 69 07/30/18 14:15 Respiratory Rate 20 07/30/18 14:15 Blood Pressure 137/55 L 07/30/18 14:15 O2 Sat by Pulse Oximetry (%) 99 07/30/18 04:00 Constitutional: Yes: Calm Cardiovascular: Yes: Regular Rate and Rhythm, S1, S2 Respiratory: Yes: CTA Bilaterally Gastrointestinal: Yes: Normal Bowel Sounds, Soft Edema: No Neurological: Yes: Alert, Oriented Labs: CBC, BMP 07/30/18 07:27 07/30/18 07:27 Problem List - Problems (1) ESRD (end stage renal disease) on dialysis Assessment/Plan: HD per renal Code(s): N18.6 - END STAGE RENAL DISEASE; Z99.2 - DEPENDENCE ON RENAL DIALYSIS (2) Elevated lipase Assessment/Plan: lipase uptrending ct scan diffusely prominent pancreas gi consullt Code(s): R74.8 - ABNORMAL LEVELS OF OTHER SERUM ENZYMES (3) Fecal retention Assessment/Plan: miralax Code(s): K59.00 - CONSTIPATION, UNSPECIFIED
[2018-07-30] MEDS ORDERED: oxyCODONE HCL 5 MG TABLET PO PRN (14:51)
--- NOTE | 2018-07-30 15:46 | PN ---
Progress Note, Physician History of Present Illness: Pt seen and examined at bedside. She is tolerating diet. She denies abdominal pain. - Current Medication List Current Medications: Active Medications Acetaminophen (Ofirmev Injection -) 1,000 mg IVPB Q6H PRN PRN Reason: PAIN 1-3 Amlodipine Besylate (Norvasc -) 10 mg PO DAILY [facility] Aspirin (Asa -) 81 mg PO DAILY [facility] Last Admin: 07/30/18 09:23 Dose: 81 mg Atorvastatin Calcium (Lipitor -) 80 mg PO HS [facility] Last Admin: 07/29/18 22:03 Dose: 80 mg Carvedilol (Coreg -) 25 mg PO BID [facility] Last Admin: 07/30/18 09:23 Dose: 25 mg Cinacalcet (Sensipar -) 90 mg PO DAILY [facility] Last Admin: 07/30/18 09:58 Dose: 90 mg Clopidogrel Bisulfate (Plavix -) 75 mg PO DAILY [facility] Last Admin: 07/30/18 09:23 Dose: 75 mg Heparin Sodium (Porcine) (Heparin -) 5,000 unit SQ BID [facility] Last Admin: 07/30/18 09:23 Dose: 5,000 unit Oxycodone HCl (Roxicodone -) 5 mg PO Q6H PRN PRN Reason: PAIN LEVEL 7 - 10 Pantoprazole Sodium (Protonix -) 40 mg PO DAILY [facility] Last Admin: 07/30/18 09:23 Dose: 40 mg - Objective Vital Signs: Vital Signs Temperature 98.4 F 07/30/18 14:15 Pulse Rate 69 07/30/18 14:15 Respiratory Rate 20 07/30/18 14:15 Blood Pressure 137/55 L 07/30/18 14:15 O2 Sat by Pulse Oximetry (%) 99 07/30/18 04:00 Constitutional: Yes: Calm Eyes: Yes: Conjunctiva Clear HENT: Yes: Atraumatic Neck: Yes: Supple Cardiovascular: Yes: S1, S2 Respiratory: Yes: CTA Bilaterally Gastrointestinal: Yes: Soft Genitourinary: Yes: WNL Musculoskeletal: Yes: WNL Edema: No Neurological: Yes: Oriented Psychiatric: Yes: Oriented Labs: CBC, BMP 07/30/18 07:27 07/30/18 07:27 Problem List - Problems (1) ESRD (end stage renal disease) on dialysis Code(s): N18.6 - END STAGE RENAL DISEASE; Z99.2 - DEPENDENCE ON RENAL DIALYSIS (2) Elevated lipase Code(s): R74.8 - ABNORMAL LEVELS OF OTHER SERUM ENZYMES Assessment/Plan Current Medications Generic Name Dose Route Start Last Admin Trade Name Freq PRN Reason Stop Dose Admin Acetaminophen 1,000 mg 07/29/18 04:15 Ofirmev Injection - IVPB Q6H PRN PAIN 1-3 Amlodipine Besylate 10 mg 07/31/18 10:00 Norvasc - PO DAILY [facility] Aspirin 81 mg 07/29/18 10:00 07/30/18 09:23 Asa - PO 81 mg DAILY [facility] Administration Atorvastatin Calcium 80 mg 07/29/18 22:00 07/29/18 22:03 Lipitor - PO 80 mg HS [facility] Administration Carvedilol 25 mg 07/29/18 10:00 07/30/18 09:23 Coreg - PO 25 mg BID [facility] Administration Cinacalcet 90 mg 07/29/18 10:00 07/30/18 09:58 Sensipar - PO 90 mg DAILY [facility] Administration Clopidogrel Bisulfate 75 mg 07/29/18 10:00 07/30/18 09:23 Plavix - PO 75 mg DAILY [facility] Administration Heparin Sodium (Porcine) 5,000 unit 07/29/18 10:00 07/30/18 09:23 Heparin - SQ 5,000 unit BID [facility] Administration Oxycodone HCl 5 mg 07/30/18 14:51 Roxicodone - PO Q6H PRN PAIN LEVEL 7 - 10 Pantoprazole Sodium 40 mg 07/29/18 10:00 07/30/18 09:23 Protonix - PO 40 mg DAILY [facility] Administration Impression 1. ESRD 2. elevated lipase 3. hx of anemia 4. HTN 5. gerd 6. cad 7. hld Plan - HD in am - renal diet - GI eval - lipase elevated - will follow Dr Wright
[2018-07-30] MEDS ORDERED: SODIUM CHLORIDE 250 ML IV PRN (15:47)
[2018-07-30] MEDS: ACETAMINOPHEN 325 MG TABLET (FP) PO PRN (16:51)
[2018-07-30] MEDS: ATORVASTATIN CA 80 MG TABLET (FP) PO SCH (22:26)
[2018-07-31 08:39] LABS: BLOOD UREA NITROGEN 38 mg/dL (7-18); GLUCOSE,RANDOM 85 mg/dL (74-106)
[2018-07-31 08:40] LABS: ALBUMIN 3.9 g/dl (3.4-5.0); ALK PHOS 256 U/L (45-117); ANION GAP 7 MMOL/L (8-16); BILIRUBIN,TOTAL 0.4 mg/dL (0.2-1); CALCIUM 8.1 mg/dL (8.5-10.1); CHLORIDE 102 mmol/L (98-107); CO2 29 mmol/L (21-32); LIPASE 634 U/L (73-393); SGOT/AST 27 U/L (15-37); SGPT/ALT 18 U/L (13-61); SODIUM 137 mmol/L (136-145); TOT PROT 7.4 g/dl (6.4-8.2)
[2018-07-31] MEDS: HEPARIN NA (PORCINE) 5,000 UNITS/ML 1ML VIAL SQ SCH ×2 (09:03→21:57)
[2018-07-31] MEDS: CLOPIDOGREL BISULFATE 75 MG TABLET (FP) PO SCH (09:04)
[2018-07-31] MEDS: ASPIRIN 81 MG CHEWABLE TABLETS PO SCH (09:04)
[2018-07-31] MEDS: PANTOPRAZOLE 40 MG TABLET (FP) PO SCH (09:04)
[2018-07-31] MEDS: CARVEDILOL 25 MG TABLET (FP) PO SCH ×2 (09:04→21:58)
[2018-07-31] MEDS: amLODIPine BESYLATE 5 MG TABLET (FP) PO SCH (09:04)
[2018-07-31] MEDS: CINACALCET HCL 30 MG TAB (FP) PO SCH (09:06)
[2018-07-31 11:37] LABS: HEMATOCRIT 39.6 % (32.4-45.2); HEMOGLOBIN 13.1 GM/dL (10.7-15.3); MCH 32.1 pg (25.7-33.7); MCHC 33.1 g/dl (32.0-36.0); MEAN CELL VOLUME 96.8 fl (80-96); MEAN PLT VOLUME 9.8 fl (7.5-11.1); PLATELET COUNT 124 K/MM3 (134-434); RBC 4.09 M/mm3 (3.60-5.2); RDW 14.8 % (11.6-15.6); WHITE BLOOD COUNT 4.2 K/mm3 (4.0-10.0)
[2018-07-31 12:47] LABS: CREATININE 9.2 mg/dL (0.55-1.3)
--- NOTE | 2018-07-31 14:49 | PN ---
Progress Note, Physician History of Present Illness: Abd pain improving, denies chest pain or dyspnea. - Current Medication List Current Medications: Active Medications Acetaminophen (Tylenol -) 650 mg PO Q6H PRN PRN Reason: PAIN LEVEL 1-5 Last Admin: 07/30/18 16:51 Dose: 650 mg Amlodipine Besylate (Norvasc -) 10 mg PO DAILY [facility] Last Admin: 07/31/18 09:04 Dose: 10 mg Aspirin (Asa -) 81 mg PO DAILY [facility] Last Admin: 07/31/18 09:04 Dose: 81 mg Atorvastatin Calcium (Lipitor -) 80 mg PO HS [facility] Last Admin: 07/30/18 22:26 Dose: 80 mg Carvedilol (Coreg -) 25 mg PO BID [facility] Last Admin: 07/31/18 09:04 Dose: 25 mg Cinacalcet (Sensipar -) 90 mg PO DAILY [facility] Last Admin: 07/31/18 09:06 Dose: 90 mg Clopidogrel Bisulfate (Plavix -) 75 mg PO DAILY [facility] Last Admin: 07/31/18 09:04 Dose: 75 mg Heparin Sodium (Porcine) (Heparin -) 5,000 unit SQ BID [facility] Last Admin: 07/31/18 09:03 Dose: 5,000 unit Sodium Chloride (Normal Saline -) 250 mls @ 3,000 mls/hr IV PRN PRN PRN Reason: Hypotension during Dialysis Stop: 07/31/18 15:47 Oxycodone HCl (Roxicodone -) 5 mg PO Q6H PRN PRN Reason: PAIN LEVEL 7 - 10 Last Admin: 07/30/18 22:28 Dose: 5 mg Pantoprazole Sodium (Protonix -) 40 mg PO DAILY [facility] Last Admin: 07/31/18 09:04 Dose: 40 mg - Objective Vital Signs: Vital Signs Temperature 98.2 F 07/31/18 11:00 Pulse Rate 64 07/31/18 13:35 Respiratory Rate 18 07/31/18 13:35 Blood Pressure 157/72 07/31/18 13:35 O2 Sat by Pulse Oximetry (%) 97 07/31/18 04:00 Labs: CBC, BMP 07/31/18 07:16 07/31/18 07:16 Problem List - Problems (1) 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 Code(s): I11.9 - HYPERTENSIVE HEART DISEASE WITHOUT HEART FAILURE (2) Diastolic dysfunction Code(s): I51.89 - OTHER ILL-DEFINED HEART DISEASES (3) ESRD (end stage renal disease) on dialysis Code(s): N18.6 - END STAGE RENAL DISEASE; Z99.2 - DEPENDENCE ON RENAL DIALYSIS (4) Anemia Code(s): D64.9 - ANEMIA, UNSPECIFIED Qualifiers: Anemia type: due to chronic kidney disease (5) Demand ischemia Code(s): I24.8 - OTHER FORMS OF ACUTE ISCHEMIC HEART DISEASE (6) ESRD (end stage renal disease) Code(s): N18.6 - END STAGE RENAL DISEASE (7) HTN, goal below 150/90 Code(s): I10 - ESSENTIAL (PRIMARY) HYPERTENSION (8) Hypercholesterolemia Code(s): E78.00 - PURE HYPERCHOLESTEROLEMIA, UNSPECIFIED Assessment/Plan MPI study revealed small zone of inferolateral wall ischemia with mild global LV hypokinesia and LV EF of 52% Echocardiography dated 12/02/2017 revealed Mod cLVH with mildly decreased LV systolic function, mild RVH with normal function, LVEF 45-50%, moderate LAE mild AR and MR Echocardiography dated 11/26/16 revealed normal LV size and function, with trace to mild MR R&LHc at [facility] 12/21/17. Moderate pulm HTN PAP 61/23/38 euvolemic PCWP 13 LVEDP 15 mmHg, non-obstructive CAD with diffuse distal LAD disease not amenable to PCI, normal LCx and RCA, preserved LVEF 55%, no aortic stenosis or mitral regurgitation, Myn[employer] deployed right [employer]PER[employer] access site, plan for continued medical therapy, HD per renal, outpatient f/u for management of restrictive cardiomyopathy and pulm HTN. 1. Abd pain, fecal retention 2. Diastolic dysfunction w/ h/o failure 3. CAD, demand ischemia 4. Hypertensive cardiovascular disease, BP not at goal 5. Hypercholesterolemia 6. ESRD on HD 7. Chemical pancreatitis PLAN: 1. Continue ASA 81 qd and Plavix 75 qd with caution and with close monitoring of platelet count, trops flat 2. Continue Coreg 25 bid 3. Continue Cozaar 100 qd 4. Increase Norvasc 10 qd 5. Continue Lipitor 80 qd 6. HD per renal 7. Bowel regimen, lipase downtrending, f/u GI input
--- NOTE | 2018-07-31 16:49 | PN ---
Progress Note, Physician Chief Complaint: Epigastric pain ESRD History of Present Illness: Previous notes and events reviewed awake and alert examined in dialysis c/o L lower extremity pain and swelling - Current Medication List Current Medications: Active Medications Acetaminophen (Tylenol -) 650 mg PO Q6H PRN PRN Reason: PAIN LEVEL 1-5 Last Admin: 07/30/18 16:51 Dose: 650 mg Amlodipine Besylate (Norvasc -) 10 mg PO DAILY [facility] Last Admin: 07/31/18 09:04 Dose: 10 mg Aspirin (Asa -) 81 mg PO DAILY [facility] Last Admin: 07/31/18 09:04 Dose: 81 mg Atorvastatin Calcium (Lipitor -) 80 mg PO HS [facility] Last Admin: 07/30/18 22:26 Dose: 80 mg Carvedilol (Coreg -) 25 mg PO BID [facility] Last Admin: 07/31/18 09:04 Dose: 25 mg Cinacalcet (Sensipar -) 90 mg PO DAILY [facility] Last Admin: 07/31/18 09:06 Dose: 90 mg Clopidogrel Bisulfate (Plavix -) 75 mg PO DAILY [facility] Last Admin: 07/31/18 09:04 Dose: 75 mg Heparin Sodium (Porcine) (Heparin -) 5,000 unit SQ BID [facility] Last Admin: 07/31/18 09:03 Dose: 5,000 unit Sodium Chloride (Normal Saline -) 250 mls @ 3,000 mls/hr IV PRN PRN PRN Reason: Hypotension during Dialysis Stop: 07/31/18 15:47 Oxycodone HCl (Roxicodone -) 5 mg PO Q6H PRN PRN Reason: PAIN LEVEL 7 - 10 Last Admin: 07/30/18 22:28 Dose: 5 mg Pantoprazole Sodium (Protonix -) 40 mg PO DAILY [facility] Last Admin: 07/31/18 09:04 Dose: 40 mg - Objective Vital Signs: Vital Signs Temperature 98.2 F 07/31/18 11:00 Pulse Rate 59 L 07/31/18 14:56 Respiratory Rate 18 07/31/18 14:56 Blood Pressure 154/76 07/31/18 14:56 O2 Sat by Pulse Oximetry (%) 100 07/31/18 10:00 Constitutional: Yes: No Distress, Calm Eyes: Yes: Conjunctiva Clear HENT: Yes: Atraumatic Cardiovascular: Yes: Regular Rate and Rhythm Respiratory: Yes: Regular, CTA Bilaterally Gastrointestinal: Yes: Normal Bowel Sounds, Soft, Tenderness Musculoskeletal: Yes: Muscle Weakness Extremities: Yes: WNL Edema: Yes (L pedal) Neurological: Yes: Alert, Oriented Psychiatric: Yes: Alert, Oriented Labs: CBC, BMP 07/31/18 07:16 07/31/18 07:16 Problem List - Problems (1) ESRD (end stage renal disease) on dialysis Assessment/Plan: -renal on board -BUN/Cr 38/9.2 -continue HD on MWF -renal diet Code(s): N18.6 - END STAGE RENAL DISEASE; Z99.2 - DEPENDENCE ON RENAL DIALYSIS (2) Elevated lipase Assessment/Plan: -GI consult placed -lipase 634 -will monitor lipase level Code(s): R74.8 - ABNORMAL LEVELS OF OTHER SERUM ENZYMES (3) Pancreatitis Assessment/Plan: -GI consult placed Code(s): K85.90 - ACUTE PANCREATITIS WITHOUT NECROSIS OR INFECTION, UNSP Qualifiers: Chronicity: acute Pancreatitis type: biliary Acute pancreatitis complication: unspecified Qualified Code(s): K85.10 - Biliary acute pancreatitis without necrosis or infection (4) Atypical chest pain Assessment/Plan: -cardiology consult placed -troponin 0.07 -will trend troponin level Code(s): R07.89 - OTHER CHEST PAIN (5) HTN (hypertension) Assessment/Plan: -continue norvasc and coreg -low Na diet Code(s): I10 - ESSENTIAL (PRIMARY) HYPERTENSION Qualifiers: Hypertension type: essential hypertension Qualified Code(s): I10 - Essential (primary) hypertension (6) Left leg pain Assessment/Plan: -Mag level ordered -Vascular US of LLE ordered STAT Code(s): M79.605 - PAIN IN LEFT LEG Assessment/Plan see problem list dvt ppx
--- NOTE | 2018-07-31 17:20 | CON.GI ---
Consult Consult Specialty:: Gastroenterology Referred by:: LUCY Aguilar Reason for Consultation:: Abdominal pain - History of Present Illness Chief Complaint: Recurring abdominal pain x 2 years History of Present Illness: 52F on HD since 2006 has periumbilical abdominal pain that radiates into her back. It is associated with nausea and occasional vomiting. It does tend to occur postprandially. She denies hematemesis, diarrhea or melena. She has never had an EGD or a colonoscopy. No abdominal surgery. He CT reveals a prominent pancreas but is a noncontrast study and limited. No recent loss of weight or appetite. This history is obtained using [employer] residential property tax appraiser, Haroon # [id number]. She has a painful swelling at the base of her left great toe suggesting podagra. Previous sonogram revealed a small GB polyp but no stones - History Source History Provided By: Patient Limitations to Obtaining History: Language Barrier - Past Medical History Cardio/Vascular: Yes: CAD (12/17 cardiac cath- distal LAD disease not amenable to stenting), HTN, Hyperlipdemia, Pulmonary Hypertension (by cardiac cath), Other (Had LUE AV fistula stenting 2016 ) Gastrointestinal: Yes: Constipation Renal/: Yes: Renal Failure, Hemodialysis ...LMP: 06/02/13 - Past Surgical History Past Surgical History: Yes: AV Fistula/Graft (Had LUE AV fistula stenting 2016 ) - Alcohol/Substance Use Hx Alcohol Use: Yes (rare only on major holidays) History of Substance Use: reports: None - Smoking History Smoking history: Never smoked Have you smoked in the past 12 months: No Aproximately how many cigarettes per day: 0 - Social History Usual Living Arrangement: With Spouse ADL: Independent Occupation: unemployed Place of : Other ([place]) Came to [place]year[place] age 29 History of Recent Travel: No Home Medications - Allergies Allergies/Adverse Reactions: Allergies Allergy/AdvReac Type Severity Reaction Status Date / Time Penicillins Allergy Severe Difficulty Verified 07/29/18 04:16 Breathing doxercalciferol AdvReac Intermediate Itching Verified 07/29/18 04:17 [From Hectorol] - Home Medications Home Medications: Ambulatory Orders Amlodipine Besylate [Norvasc -] 5 mg PO DAILY #30 tablet 12/08/17 Aspirin [ASA -] 81 mg PO DAILY #30 tab.chew 12/08/17 Atorvastatin Ca [Lipitor] 80 mg PO HS #30 tablet 12/08/17 Carvedilol [Coreg -] 25 mg PO BID #60 tablet 12/08/17 Cinacalcet HCl [Sensipar -] 90 mg PO DAILY #90 tab 12/08/17 Clopidogrel Bisulfate [Plavix -] 75 mg PO DAILY #30 tablet 12/08/17 Losartan Potassium [Cozaar -] 100 mg PO DAILY #30 tablet 12/08/17 Sevelamer Carbonate [Renvela Powder Packet -] 0.8 gm PO TIDCM #90 powd.pack 02/17 levoFLOXacin [Levaquin -] 250 mg PO Q48H #1 tablet 12/08/17 Family Disease History - Family Disease History Family Disease History: Diabetes: Father ( of diabetic complication), Other : Mother (hypertensive) Other Family History: no cancer Physical Exam-GI Vital Signs: Vital Signs Temperature 98.2 F 07/31/18 11:00 Pulse Rate 59 L 07/31/18 14:56 Respiratory Rate 18 07/31/18 14:56 Blood Pressure 154/76 07/31/18 14:56 O2 Sat by Pulse Oximetry (%) 100 07/31/18 10:00 CBC,CMP WBC 4.2 K/mm3 (4.0-10.0) 07/31/18 07:16 RBC 4.09 M/mm3 (3.60-5.2) 07/31/18 07:16 Hgb 13.1 GM/dL (10.7-15.3) 07/31/18 07:16 Hct 39.6 % (32.4-45.2) 07/31/18 07:16 MCV 96.8 fl (80-96) H 07/31/18 07:16 MCH 32.1 pg (25.7-33.7) 07/31/18 07:16 MCHC 33.1 g/dl (32.0-36.0) 07/31/18 07:16 RDW 14.8 % (11.6-15.6) 07/31/18 07:16 Plt Count 124 K/MM3 (134-434) L 07/31/18 07:16 MPV 9.8 fl (7.5-11.1) 07/31/18 07:16 Absolute Neuts (auto) 2.6 K/mm3 (1.5-8.0) 07/29/18 02:15 Neutrophils % 58.7 % (42.8-82.8) 07/29/18 02:15 Lymphocytes % 25.3 % (8-40) D 07/29/18 02:15 Monocytes % 8.2 % (3.8-10.2) 07/29/18 02:15 Eosinophils % 7.0 % (0-4.5) H 07/29/18 02:15 Basophils % 0.8 % (0-2.0) 07/29/18 02:15 Nucleated RBC % 0 % (0-0) 07/29/18 02:15 Sodium 137 mmol/L (136-145) 07/31/18 07:16 Potassium 5.0 mmol/L (3.5-5.1) 07/31/18 07:16 Chloride 102 mmol/L (98-107) 07/31/18 07:16 Carbon Dioxide 29 mmol/L (21-32) 07/31/18 07:16 Anion Gap 7 MMOL/L (8-16) L 07/31/18 07:16 BUN 38 mg/dL (7-18) H 07/31/18 07:16 Creatinine 9.2 mg/dL (0.55-1.3) H* 07/31/18 07:16 Creat Clearance w eGFR 4.48 (>60) 07/31/18 07:16 Random Glucose 85 mg/dL (74-106) 07/31/18 07:16 Calcium 8.1 mg/dL (8.5-10.1) L 07/31/18 07:16 Magnesium 3.0 mg/dL (1.8-2.4) H 07/29/18 08:15 Total Bilirubin 0.4 mg/dL (0.2-1) 07/31/18 07:16 Direct Bilirubin 0.1 mg/dL (0.0-0.2) 07/29/18 08:15 AST 27 U/L (15-37) 07/31/18 07:16 ALT 18 U/L (13-61) 07/31/18 07:16 Alkaline Phosphatase 256 U/L (45-117) H 07/31/18 07:16 Troponin I 0.07 ng/ml (0.00-0.05) H 07/30/18 07:27 Total Protein 7.4 g/dl (6.4-8.2) 07/31/18 07:16 Albumin 3.9 g/dl (3.4-5.0) 07/31/18 07:16 Triglycerides 152 mg/dL (0-150) H 07/29/18 08:15 Cholesterol 203 mg/dL (50-200) H 07/29/18 08:15 Total LDL Cholesterol 117 mg/dL (5-100) H 07/29/18 08:15 HDL Cholesterol 58 mg/dL (40-60) 07/29/18 08:15 Lipase 634 U/L (73-393) H 07/31/18 07:16 Current Medications Generic Name Dose Route Start Last Admin Trade Name Freq PRN Reason Stop Dose Admin Acetaminophen 650 mg 07/30/18 15:49 07/30/18 16:51 Tylenol - PO 650 mg Q6H PRN Administration PAIN LEVEL 1-5 Amlodipine Besylate 10 mg 07/31/18 10:00 07/31/18 09:04 Norvasc - PO 10 mg DAILY [facility] Administration Aspirin 81 mg 07/29/18 10:00 07/31/18 09:04 Asa - PO 81 mg DAILY [facility] Administration Atorvastatin Calcium 80 mg 07/29/18 22:00 07/30/18 22:26 Lipitor - PO 80 mg HS [facility] Administration Carvedilol 25 mg 07/29/18 10:00 07/31/18 09:04 Coreg - PO 25 mg BID [facility] Administration Cinacalcet 90 mg 07/29/18 10:00 07/31/18 09:06 Sensipar - PO 90 mg DAILY [facility] Administration Clopidogrel Bisulfate 75 mg 07/29/18 10:00 07/31/18 09:04 Plavix - PO 75 mg DAILY [facility] Administration Heparin Sodium (Porcine) 5,000 unit 07/29/18 10:00 07/31/18 09:03 Heparin - SQ 5,000 unit BID [facility] Administration Sodium Chloride 250 mls @ 3,000 mls/hr 07/30/18 15:47 Normal Saline - IV 07/31/18 15:47 PRN PRN Hypotension during Dialysis Oxycodone HCl 5 mg 07/30/18 14:51 07/30/18 22:28 Roxicodone - PO 5 mg Q6H PRN Administration PAIN LEVEL 7 - 10 Pantoprazole Sodium 40 mg 07/29/18 10:00 07/31/18 09:04 Protonix - PO 40 mg DAILY [facility] Administration Constitutional: Yes: No Distress Eyes: Yes: Conjunctiva Clear HENT: Yes: Atraumatic Neck: Yes: Supple Cardiovascular: Yes: Regular Rate and Rhythm, Murmur (2/6 holosystolic murmur LLSB radiating to apex and base but not into carotids) Respiratory: Yes: CTA Bilaterally Gastrointestinal Inspection: Yes: WNL ...Auscultate: Yes: Normoactive Bowel Sounds ...Palpate: Yes: Soft, Other (nontender) ...Rectal Exam: Yes: Guaiac Negative (full of brown guaiac negative stool) Extremities: Yes: Other (hot swollen base of great left toe ? gout) Edema: No Peripheral Pulses WNL: Yes Neurological: Yes: Alert, Oriented Labs: CBC, BMP 07/31/18 07:16 07/31/18 07:16 Laboratory Tests 03/12/13 12/26/14 07/16/15 05:20 14:30 19:21 Alkaline Phosphatase 114 73 111 D 07/19/15 11/25/16 12/07/16 07:50 21:00 00:55 Alkaline Phosphatase 60 135 H 142 H 12/02/17 12/06/17 12/09/17 05:30 06:35 09:00 Alkaline Phosphatase 87 D 86 100 D 07/29/18 07/29/18 07/30/18 02:15 08:15 07:27 Alkaline Phosphatase 275 H 285 H 228 H 07/31/18 07:16 Alkaline Phosphatase 256 H Imaging - Results Cat Scan: Report Reviewed (Jd Mtz Name: [facility] DEPARTMENT OF RADIOLOGY Phys: Anette Fontana NP : [id number] Age: 52 Sex: F [facility] Acct: [id number] Loc: [id number] [facility] Exam Date: 07/29/18 Status: [place] [address] Unit Number: [id number] EXAM#: TYPE/EXAM: RESULT: [id number] CT/ABDOMEN PELVIS CT W/O CONTR HISTORY PROVIDED: Right upper quadrant pain TECHNIQUE: Sequential axial images were obtained from the domes of the diaphragm through the symphysis pubis. The study is markedly limited without the use of any contrast material. Evaluation of the lung bases demonstrates mild platelike atelectasis within the left lower lobe. The heart is slightly enlarged. The kidneys are markedly atrophic with no evidence of hydronephrosis or acute renal pathology. Correlation with renal function studies is recommended. The liver and spleen are mildly prominent. The pancreas is markedly prominent. Evaluation of these organs is limited without the use of intravenous contrast. While there are no secondary signs of acute pancreatitis, correlation with pancreatic enzymes studies is recommended. The gallbladder is largely contracted. It appears somewhat thickened which may be related to hepatocellular dysfunction and not intrinsic gallbladder pathology. No calculi are identified. If further evaluation of the gallbladder is clinically indicated, ultrasonography and possibly hepatobiliary nuclear medicine scanning, may be warranted. There is no evidence of abdominal aortic aneurysm, however, there is heavy vascular calcification within the aorta and common iliac arteries which is increased for the patient's age. Clinical correlation is advised. There is no evidence of pneumoperitoneum, bowel obstruction or intra-abdominal abscess. There is no CT evidence of acute appendicitis or diverticulitis. Examination of the pelvis demonstrates a moderate to large amount of retained fecal material throughout the colon. There is no evidence of pelvic masses, fluid collections or lymphadenopathy. Evaluation of the bony structures of the abdomen and pelvis demonstrates sclerotic changes diffusely which most likely are related to renal osteodystrophy. Clinical correlation is again advised. IMPRESSION: 1. Atrophic kidneys without evidence of hydronephrosis or obstructive uropathy. This is consistent with chronic medical renal disease. 2. Diffusely prominent pancreas without evidence of a discrete mass or acute/ chronic pancreatitis. 3. Sclerotic bony changes suggesting renal osteodystrophy. 4. Fecal retention with no definite evidence of acute pathology within the abdomen or pelvis. Clinical correlation and follow-up recommended. Limited study as described above. Reported By: Daniel Burr MD 07/29/18838 Technologist: Sami Beckwith Transcribed Date/ Time: 07/29/18838 [place] Technician: Daniel Burr Printed Date/Time: By: Signed by: Daniel Burr Signed on: 29-Jul-2018 08:41) Problem List - Problems (1) Abdominal pain Assessment/Plan: Given the possibility of pancreatitis and recurring pain small biliary tract stones need to be excluded by MRCP. I discussed this possibility with Frances using the [employer] residential property tax appraiser I explained that if her MRCP reveals choledocholithiasis that I would then arrange an ERCP. If no stones are found then I will pursue an EGD to exclude ulcers. Using the residential property tax appraiser I informed Frances of the potential for such complications as perforation, hemorrhage and pancreatitis with an EGD incidence of 1:1,000 and for ERCP an incidence of 5-15% . I have reserved an endoscopy slot for the AM of 08/03. 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 Will order GGTP Code(s): R74.8 - ABNORMAL LEVELS OF OTHER SERUM ENZYMES (9) Podagra Code(s): M10.9 - GOUT, UNSPECIFIED Assessment/Plan Impression: Chronic recurring abdominal pain with possible biliary pancreatitis May alternatively have an ulcer I believe that the elevated alkaline phosphatase reflects renal osteodystrophy Left foot podagra Plan: MRCP If positive will undertake ERCP with stenting as the patient is on Plavix If negative will undertake EGD Please arrange HD for Friday to allow AM endoscopy Left foot X ray and uric acid to exclude a gout attack
--- NOTE | 2018-07-31 17:21 | PN ---
Progress Note, Physician History of Present Illness: Pt seen and examined at bedside. She is tolerating HD. She denies abdominal pain. - Current Medication List Current Medications: Active Medications Acetaminophen (Tylenol -) 650 mg PO Q6H PRN PRN Reason: PAIN LEVEL 1-5 Last Admin: 07/30/18 16:51 Dose: 650 mg Amlodipine Besylate (Norvasc -) 10 mg PO DAILY [facility] Last Admin: 07/31/18 09:04 Dose: 10 mg Aspirin (Asa -) 81 mg PO DAILY [facility] Last Admin: 07/31/18 09:04 Dose: 81 mg Atorvastatin Calcium (Lipitor -) 80 mg PO HS [facility] Last Admin: 07/30/18 22:26 Dose: 80 mg Carvedilol (Coreg -) 25 mg PO BID [facility] Last Admin: 07/31/18 09:04 Dose: 25 mg Cinacalcet (Sensipar -) 90 mg PO DAILY [facility] Last Admin: 07/31/18 09:06 Dose: 90 mg Clopidogrel Bisulfate (Plavix -) 75 mg PO DAILY [facility] Last Admin: 07/31/18 09:04 Dose: 75 mg Heparin Sodium (Porcine) (Heparin -) 5,000 unit SQ BID [facility] Last Admin: 07/31/18 09:03 Dose: 5,000 unit Sodium Chloride (Normal Saline -) 250 mls @ 3,000 mls/hr IV PRN PRN PRN Reason: Hypotension during Dialysis Stop: 07/31/18 15:47 Oxycodone HCl (Roxicodone -) 5 mg PO Q6H PRN PRN Reason: PAIN LEVEL 7 - 10 Last Admin: 07/30/18 22:28 Dose: 5 mg Pantoprazole Sodium (Protonix -) 40 mg PO DAILY [facility] Last Admin: 07/31/18 09:04 Dose: 40 mg - Objective Vital Signs: Vital Signs Temperature 98.2 F 07/31/18 11:00 Pulse Rate 59 L 07/31/18 14:56 Respiratory Rate 18 07/31/18 14:56 Blood Pressure 154/76 07/31/18 14:56 O2 Sat by Pulse Oximetry (%) 100 07/31/18 10:00 Constitutional: Yes: Calm Eyes: Yes: Conjunctiva Clear HENT: Yes: Atraumatic Neck: Yes: Supple Cardiovascular: Yes: S1, S2 Respiratory: Yes: CTA Bilaterally Gastrointestinal: Yes: Soft Genitourinary: Yes: WNL Musculoskeletal: Yes: WNL Edema: No Integumentary: Yes: WNL Neurological: Yes: Oriented Psychiatric: Yes: Oriented Labs: CBC, BMP 07/31/18 07:16 07/31/18 07:16 Problem List - Problems (1) ESRD (end stage renal disease) on dialysis Code(s): N18.6 - END STAGE RENAL DISEASE; Z99.2 - DEPENDENCE ON RENAL DIALYSIS (2) Elevated lipase Code(s): R74.8 - ABNORMAL LEVELS OF OTHER SERUM ENZYMES Assessment/Plan Current Medications Generic Name Dose Route Start Last Admin Trade Name Freq PRN Reason Stop Dose Admin Acetaminophen 650 mg 07/30/18 15:49 07/30/18 16:51 Tylenol - PO 650 mg Q6H PRN Administration PAIN LEVEL 1-5 Amlodipine Besylate 10 mg 07/31/18 10:00 07/31/18 09:04 Norvasc - PO 10 mg DAILY [facility] Administration Aspirin 81 mg 07/29/18 10:00 07/31/18 09:04 Asa - PO 81 mg DAILY [facility] Administration Atorvastatin Calcium 80 mg 07/29/18 22:00 07/30/18 22:26 Lipitor - PO 80 mg HS [facility] Administration Carvedilol 25 mg 07/29/18 10:00 07/31/18 09:04 Coreg - PO 25 mg BID [facility] Administration Cinacalcet 90 mg 07/29/18 10:00 07/31/18 09:06 Sensipar - PO 90 mg DAILY [facility] Administration Clopidogrel Bisulfate 75 mg 07/29/18 10:00 07/31/18 09:04 Plavix - PO 75 mg DAILY [facility] Administration Heparin Sodium (Porcine) 5,000 unit 07/29/18 10:00 07/31/18 09:03 Heparin - SQ 5,000 unit BID [facility] Administration Sodium Chloride 250 mls @ 3,000 mls/hr 07/30/18 15:47 Normal Saline - IV 07/31/18 15:47 PRN PRN Hypotension during Dialysis Oxycodone HCl 5 mg 07/30/18 14:51 07/30/18 22:28 Roxicodone - PO 5 mg Q6H PRN Administration PAIN LEVEL 7 - 10 Pantoprazole Sodium 40 mg 07/29/18 10:00 07/31/18 09:04 Protonix - PO 40 mg DAILY [facility] Administration Impression 1. ESRD 2. elevated lipase 3. hx of anemia 4. HTN 5. gerd 6. cad 7. hld Plan - pt tolerating HD - GI eval pending - pt tolerating diet - renal diet Dr Wright
[2018-07-31] MEDS: ATORVASTATIN CA 80 MG TABLET (FP) PO SCH (21:58)
[2018-07-31] MEDS: POLYETHYLENE GLYCOL 3350 119 GM BTL PO SCH (22:30)
[2018-08-01] MEDS: POLYETHYLENE GLYCOL 3350 119 GM BTL PO SCH ×3 (05:23→21:02)
--- NOTE | 2018-08-01 08:30 | PN ---
Progress Note, Physician Chief Complaint: states she is feeling better ; less pain today , no nausea - Current Medication List Current Medications: Active Medications Acetaminophen (Tylenol -) 650 mg PO Q6H PRN PRN Reason: PAIN LEVEL 1-5 Last Admin: 07/30/18 16:51 Dose: 650 mg Amlodipine Besylate (Norvasc -) 10 mg PO DAILY [facility] Last Admin: 07/31/18 09:04 Dose: 10 mg Aspirin (Asa -) 81 mg PO DAILY [facility] Last Admin: 07/31/18 09:04 Dose: 81 mg Atorvastatin Calcium (Lipitor -) 80 mg PO HS [facility] Last Admin: 07/31/18 21:58 Dose: 80 mg Carvedilol (Coreg -) 25 mg PO BID [facility] Last Admin: 07/31/18 21:58 Dose: 25 mg Cinacalcet (Sensipar -) 90 mg PO DAILY [facility] Last Admin: 07/31/18 09:06 Dose: 90 mg Clopidogrel Bisulfate (Plavix -) 75 mg PO DAILY [facility] Last Admin: 07/31/18 09:04 Dose: 75 mg Heparin Sodium (Porcine) (Heparin -) 5,000 unit SQ BID [facility] Last Admin: 07/31/18 21:57 Dose: 5,000 unit Sodium Chloride (Normal Saline -) 250 mls @ 3,000 mls/hr IV PRN PRN PRN Reason: Hypotension during Dialysis Stop: 07/31/18 15:47 Oxycodone HCl (Roxicodone -) 5 mg PO Q6H PRN PRN Reason: PAIN LEVEL 7 - 10 Last Admin: 07/30/18 22:28 Dose: 5 mg Pantoprazole Sodium (Protonix -) 40 mg PO DAILY [facility] Last Admin: 07/31/18 09:04 Dose: 40 mg Polyethylene Glycol (Miralax (For Daily Use) -) 17 gm PO TID [facility] Last Admin: 08/01/18 05:23 Dose: Not Given - Objective Vital Signs: Vital Signs Temperature 98.2 F 08/01/18 07:00 Pulse Rate 57 L 08/01/18 07:00 Respiratory Rate 18 08/01/18 07:00 Blood Pressure 157/58 L 08/01/18 07:00 O2 Sat by Pulse Oximetry (%) 99 08/01/18 04:00 Constitutional: Yes: Well Nourished, No Distress, Calm HENT: Yes: WNL Neck: Yes: WNL Cardiovascular: Yes: WNL, Regular Rate and Rhythm Respiratory: Yes: WNL, Regular, CTA Bilaterally Gastrointestinal: Yes: WNL, Normal Bowel Sounds, Soft Edema: No Problem List - Problems (1) Abdominal pain Assessment/Plan: - await results of the mrcp (may need ercp vs. egd to further evaluate her pain syndrome) - continue ppi - clear liquid diet ; if mrcp normal may advance as tolerated - will f/u Code(s): R10.9 - UNSPECIFIED ABDOMINAL PAIN
[2018-08-01 08:37] LABS: BASO % 2.1 % (0-2.0); EOS % 9.7 % (0-4.5); HEMATOCRIT 38.1 % (32.4-45.2); HEMOGLOBIN 12.8 GM/dL (10.7-15.3); LYMPH % 25.9 % (8-40); MCHC 33.6 g/dl (32.0-36.0); MEAN CELL VOLUME 95.2 fl (80-96); MEAN PLT VOLUME 9.4 fl (7.5-11.1); MONO % 7.4 % (3.8-10.2); NEUT % 54.9 % (42.8-82.8); PLATELET COUNT 118 K/MM3 (134-434); RDW 14.3 % (11.6-15.6); WHITE BLOOD COUNT 3.5 K/mm3 (4.0-10.0)
[2018-08-01] MEDS ORDERED: PT OWN MED DRAWER 7, Y5N ONE (08:48)
[2018-08-01 09:11] LABS: ALBUMIN 3.3 g/dl (3.4-5.0); ALK PHOS 225 U/L (45-117); AMYLASE 152 U/L (25-115); BILIRUBIN,DIRECT 0.1 mg/dL (0.0-0.2); BILIRUBIN,TOTAL 0.5 mg/dL (0.2-1); GAMMA GLUTAMYL TRANSPEPTIDASE 13 U/L (5-85); SGOT/AST 22 U/L (15-37); SGPT/ALT 15 U/L (13-61); TOT PROT 6.5 g/dl (6.4-8.2)
[2018-08-01] MEDS: CARVEDILOL 25 MG TABLET (FP) PO SCH ×2 (09:14→21:01)
[2018-08-01] MEDS: HEPARIN NA (PORCINE) 5,000 UNITS/ML 1ML VIAL SQ SCH ×2 (09:14→21:01)
[2018-08-01] MEDS: PANTOPRAZOLE 40 MG TABLET (FP) PO SCH (09:14)
[2018-08-01] MEDS: amLODIPine BESYLATE 5 MG TABLET (FP) PO SCH (09:14)
[2018-08-01] MEDS: CINACALCET HCL 30 MG TAB (FP) PO SCH (09:15)
[2018-08-01 09:16] LABS: ALBUMIN 3.4 g/dl (3.4-5.0); ALK PHOS 222 U/L (45-117); ANION GAP 8 MMOL/L (8-16); BILIRUBIN,TOTAL 0.3 mg/dL (0.2-1); BLOOD UREA NITROGEN 18 mg/dL (7-18); CALCIUM 8.6 mg/dL (8.5-10.1); CHLORIDE 100 mmol/L (98-107); CO2 31 mmol/L (21-32); CREATININE 6.5 mg/dL (0.55-1.3); GLUCOSE,RANDOM 83 mg/dL (74-106); LIPASE 419 U/L (73-393); POTASSIUM 4.7 mmol/L (3.5-5.1); SGOT/AST 22 U/L (15-37); SGPT/ALT 15 U/L (13-61); SODIUM 138 mmol/L (136-145); TOT PROT 6.5 g/dl (6.4-8.2); URIC ACID 2.7 mg/dL (2.6-7.2)
--- NOTE | 2018-08-01 10:04 | PN ---
Progress Note, Physician Chief Complaint: AWAKE ALERT EVENTS AND NOTES REVIEWED - Current Medication List Current Medications: Active Medications Acetaminophen (Tylenol -) 650 mg PO Q6H PRN PRN Reason: PAIN LEVEL 1-5 Last Admin: 07/30/18 16:51 Dose: 650 mg Amlodipine Besylate (Norvasc -) 10 mg PO DAILY [facility] Last Admin: 08/01/18 09:14 Dose: 10 mg Atorvastatin Calcium (Lipitor -) 80 mg PO HS [facility] Last Admin: 07/31/18 21:58 Dose: 80 mg Carvedilol (Coreg -) 25 mg PO BID [facility] Last Admin: 08/01/18 09:14 Dose: 25 mg Cinacalcet (Sensipar -) 90 mg PO DAILY [facility] Last Admin: 08/01/18 09:15 Dose: 90 mg Heparin Sodium (Porcine) (Heparin -) 5,000 unit SQ BID [facility] Last Admin: 08/01/18 09:14 Dose: 5,000 unit Sodium Chloride (Normal Saline -) 250 mls @ 3,000 mls/hr IV PRN PRN PRN Reason: Hypotension during Dialysis Stop: 07/31/18 15:47 Oxycodone HCl (Roxicodone -) 5 mg PO Q6H PRN PRN Reason: PAIN LEVEL 7 - 10 Last Admin: 07/30/18 22:28 Dose: 5 mg Pantoprazole Sodium (Protonix -) 40 mg PO DAILY [facility] Last Admin: 08/01/18 09:14 Dose: 40 mg Polyethylene Glycol (Miralax (For Daily Use) -) 17 gm PO TID [facility] Last Admin: 08/01/18 05:23 Dose: Not Given - Objective Vital Signs: Vital Signs Temperature 98.6 F 08/01/18 09:23 Pulse Rate 69 08/01/18 09:23 Respiratory Rate 18 08/01/18 09:23 Blood Pressure 154/62 08/01/18 09:23 O2 Sat by Pulse Oximetry (%) 99 08/01/18 04:00 Constitutional: Yes: No Distress Eyes: Yes: WNL HENT: Yes: WNL Neck: Yes: WNL Cardiovascular: Yes: Regular Rate and Rhythm Respiratory: Yes: WNL Gastrointestinal: Yes: Soft Genitourinary: Yes: WNL Musculoskeletal: Yes: WNL Extremities: Yes: WNL Edema: No Peripheral Pulses WNL: Yes Integumentary: Yes: WNL Wound/Incision: Yes: Clean/Dry Neurological: Yes: WNL ...Motor Strength: WNL Psychiatric: Yes: WNL Labs: CBC, BMP 08/01/18 07:30 08/01/18 07:30 Problem List - Problems (1) Abdominal pain Code(s): R10.9 - UNSPECIFIED ABDOMINAL PAIN (2) Alkaline phosphatase elevation Code(s): R74.8 - ABNORMAL LEVELS OF OTHER SERUM ENZYMES (3) Diastolic dysfunction Code(s): I51.89 - OTHER ILL-DEFINED HEART DISEASES (4) ESRD (end stage renal disease) on dialysis Code(s): N18.6 - END STAGE RENAL DISEASE; Z99.2 - DEPENDENCE ON RENAL DIALYSIS (5) Elevated lipase Code(s): R74.8 - ABNORMAL LEVELS OF OTHER SERUM ENZYMES (6) 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
[2018-08-01] MEDS: ASPIRIN COATED 81 MG TABLET.EC PO SCH (15:27)
--- NOTE | 2018-08-01 16:14 | PN ---
Progress Note, Physician History of Present Illness: Pt seen and examined at bedside. SHe denies abdominal pain. - Current Medication List Current Medications: Active Medications Acetaminophen (Tylenol -) 650 mg PO Q6H PRN PRN Reason: PAIN LEVEL 1-5 Last Admin: 07/30/18 16:51 Dose: 650 mg Amlodipine Besylate (Norvasc -) 10 mg PO DAILY [facility] Last Admin: 08/01/18 09:14 Dose: 10 mg Aspirin (Ecotrin -) 81 mg PO DAILY [facility] Last Admin: 08/01/18 15:27 Dose: 81 mg Atorvastatin Calcium (Lipitor -) 80 mg PO HS [facility] Last Admin: 07/31/18 21:58 Dose: 80 mg Carvedilol (Coreg -) 25 mg PO BID [facility] Last Admin: 08/01/18 09:14 Dose: 25 mg Cinacalcet (Sensipar -) 90 mg PO DAILY [facility] Last Admin: 08/01/18 09:15 Dose: 90 mg Heparin Sodium (Porcine) (Heparin -) 5,000 unit SQ BID [facility] Last Admin: 08/01/18 09:14 Dose: 5,000 unit Sodium Chloride (Normal Saline -) 250 mls @ 3,000 mls/hr IV PRN PRN PRN Reason: Hypotension during Dialysis Stop: 07/31/18 15:47 Oxycodone HCl (Roxicodone -) 5 mg PO Q6H PRN PRN Reason: PAIN LEVEL 7 - 10 Last Admin: 07/30/18 22:28 Dose: 5 mg Pantoprazole Sodium (Protonix -) 40 mg PO DAILY [facility] Last Admin: 08/01/18 09:14 Dose: 40 mg Polyethylene Glycol (Miralax (For Daily Use) -) 17 gm PO TID [facility] Last Admin: 08/01/18 15:27 Dose: 17 gm - Objective Vital Signs: Vital Signs Temperature 97.9 F 08/01/18 13:26 Pulse Rate 66 08/01/18 13:26 Respiratory Rate 18 08/01/18 13:26 Blood Pressure 140/58 L 08/01/18 13:26 O2 Sat by Pulse Oximetry (%) 97 08/01/18 10:00 Constitutional: Yes: Calm Eyes: Yes: Conjunctiva Clear HENT: Yes: Atraumatic Neck: Yes: Supple Cardiovascular: Yes: S1, S2 Respiratory: Yes: CTA Bilaterally Gastrointestinal: Yes: Soft Genitourinary: Yes: WNL Musculoskeletal: Yes: WNL Edema: No Neurological: Yes: Oriented Psychiatric: Yes: Oriented Labs: CBC, BMP 08/01/18 07:30 08/01/18 07:30 Problem List - Problems (1) ESRD (end stage renal disease) on dialysis Code(s): N18.6 - END STAGE RENAL DISEASE; Z99.2 - DEPENDENCE ON RENAL DIALYSIS (2) Elevated lipase Code(s): R74.8 - ABNORMAL LEVELS OF OTHER SERUM ENZYMES Assessment/Plan Current Medications Generic Name Dose Route Start Last Admin Trade Name Freq PRN Reason Stop Dose Admin Acetaminophen 650 mg 07/30/18 15:49 07/30/18 16:51 Tylenol - PO 650 mg Q6H PRN Administration PAIN LEVEL 1-5 Amlodipine Besylate 10 mg 07/31/18 10:00 08/01/18 09:14 Norvasc - PO 10 mg DAILY [facility] Administration Aspirin 81 mg 08/01/18 12:45 08/01/18 15:27 Ecotrin - PO 81 mg DAILY [facility] Administration Atorvastatin Calcium 80 mg 07/29/18 22:00 07/31/18 21:58 Lipitor - PO 80 mg HS [facility] Administration Carvedilol 25 mg 07/29/18 10:00 08/01/18 09:14 Coreg - PO 25 mg BID [facility] Administration Cinacalcet 90 mg 07/29/18 10:00 08/01/18 09:15 Sensipar - PO 90 mg DAILY [facility] Administration Heparin Sodium (Porcine) 5,000 unit 07/29/18 10:00 08/01/18 09:14 Heparin - SQ 5,000 unit BID [facility] Administration Sodium Chloride 250 mls @ 3,000 mls/hr 07/30/18 15:47 Normal Saline - IV 07/31/18 15:47 PRN PRN Hypotension during Dialysis Oxycodone HCl 5 mg 07/30/18 14:51 07/30/18 22:28 Roxicodone - PO 5 mg Q6H PRN Administration PAIN LEVEL 7 - 10 Pantoprazole Sodium 40 mg 07/29/18 10:00 08/01/18 09:14 Protonix - PO 40 mg DAILY [facility] Administration Polyethylene Glycol 17 gm 07/31/18 22:00 08/01/18 15:27 Miralax (For Daily Use) - PO 17 gm TID [facility] Administration Impression 1. ESRD 2. elevated lipase 3. hx of anemia 4. HTN 5. gerd 6. cad 7. hld Plan - next HD on Friday - GI workup in progress - pt tolerating diet - renal diet - monitor bp Dr Wright
--- NOTE | 2018-08-01 18:45 | PN ---
Progress Note (short form) - Note Progress Note: Chief Complaint: Events noted, notes reviewed, denie any chest pain or dyspnea History of Present Illness: Seen and examined. Events noted, notes reviewed, denies any chest pain or dyspnea MPI study revealed small zone of inferolateral wall ischemia with mild global LV hypokinesia and LV EF of 52% Echocardiography dated 12/02/2017 revealed Mod cLVH with mildly decreased LV systolic function, mild RVH with normal function, LVEF 45-50%, moderate LAE mild AR and MR Echocardiography dated 11/26/16 revealed normal LV size and function, with trace to mild MR R&LHc at [facility] 12/21/17. Moderate pulm HTN PAP 61/23/38 euvolemic PCWP 13 LVEDP 15 mmHg, non-obstructive CAD with diffuse distal LAD disease not amenable to PCI, normal LCx and RCA, preserved LVEF 55%, no aortic stenosis or mitral regurgitation. - Current Medication List Current Medications Acetaminophen (Tylenol -) 650 mg PO Q6H PRN PRN Reason: PAIN LEVEL 1-5 Last Admin: 07/30/18 16:51 Dose: 650 mg Amlodipine Besylate (Norvasc -) 10 mg PO DAILY [facility] Last Admin: 08/01/18 09:14 Dose: 10 mg Aspirin (Ecotrin -) 81 mg PO DAILY [facility] Last Admin: 08/01/18 15:27 Dose: 81 mg Atorvastatin Calcium (Lipitor -) 80 mg PO HS [facility] Last Admin: 07/31/18 21:58 Dose: 80 mg Carvedilol (Coreg -) 25 mg PO BID [facility] Last Admin: 08/01/18 09:14 Dose: 25 mg Cinacalcet (Sensipar -) 90 mg PO DAILY [facility] Last Admin: 08/01/18 09:15 Dose: 90 mg Heparin Sodium (Porcine) (Heparin -) 5,000 unit SQ BID [facility] Last Admin: 08/01/18 09:14 Dose: 5,000 unit Sodium Chloride (Normal Saline -) 250 mls @ 3,000 mls/hr IV PRN PRN PRN Reason: Hypotension during Dialysis Stop: 07/31/18 15:47 Oxycodone HCl (Roxicodone -) 5 mg PO Q6H PRN PRN Reason: PAIN LEVEL 7 - 10 Last Admin: 07/30/18 22:28 Dose: 5 mg Pantoprazole Sodium (Protonix -) 40 mg PO DAILY [facility] Last Admin: 08/01/18 09:14 Dose: 40 mg Polyethylene Glycol (Miralax (For Daily Use) -) 17 gm PO TID [facility] Last Admin: 08/01/18 15:27 Dose: 17 gm - Objective Vital Signs: Last Vital Signs Temp Pulse Resp BP Pulse Ox 97.9 F 66 18 140/58 L 97 08/01/18 13:26 08/01/18 13:26 08/01/18 13:26 08/01/18 13:26 08/01/18 10:00 Intake & Output 07/29/18 07/30/18 07/31/18 08/01/18 23:59 23:59 23:59 23:59 Intake Total 450 850 900 700 Balance 450 850 900 700 Weight 101 lb 8 oz Constitutional: No Distress, Calm Neck: Supple Negative JVD Cardiovascular: S1 S2 Regular Rate Rhythm Respiratory: Diminished Breath Sounds at the Bases Bilaterally Gastrointestinal: Soft Benign Normal Bowel Sounds Ext: No Edema Labs: CBC, BMP 08/01/18 07:30 08/01/18 07:30 Hepatic Panel Total Bilirubin 0.3 mg/dL (0.2-1) 08/01/18 07:30 Direct Bilirubin 0.1 mg/dL (0.0-0.2) 08/01/18 07:30 AST 22 U/L (15-37) 08/01/18 07:30 ALT 15 U/L (13-61) 08/01/18 07:30 Alkaline Phosphatase 222 U/L (45-117) H 08/01/18 07:30 Albumin 3.4 g/dl (3.4-5.0) 08/01/18 07:30 Assessment/Plan ASSESSMENT: 1. Abdominal pain, pancreatitis 2. Diastolic LV dysfunction with clinical class 0 NYHA classification LV failure 3. CAD angina pectoris with evidence of demand ischemia 4. Hypertensive cardiovascular disease 5. Hypercholesterolemia 6. ESRD on HD PLAN: 1. Withhold Plavix pending planned intervention, but continue ASA 2. Continue Coreg 3. Continue Norvasc 4. Continue Lipitor 5. HD per renal service Marvin Schilling MD
[2018-08-01] MEDS: ATORVASTATIN CA 80 MG TABLET (FP) PO SCH (21:02)
[2018-08-02] MEDS: POLYETHYLENE GLYCOL 3350 119 GM BTL PO SCH ×3 (05:41→21:15)
[2018-08-02] MEDS ORDERED: PT OWN MED DRAWER 7, Y5N ONE (08:59)
[2018-08-02] MEDS: CARVEDILOL 25 MG TABLET (FP) PO SCH ×2 (09:42→21:15)
[2018-08-02] MEDS: ASPIRIN COATED 81 MG TABLET.EC PO SCH (09:42)
[2018-08-02] MEDS: amLODIPine BESYLATE 5 MG TABLET (FP) PO SCH (09:42)
[2018-08-02] MEDS: PANTOPRAZOLE 40 MG TABLET (FP) PO SCH (09:42)
[2018-08-02] MEDS: HEPARIN NA (PORCINE) 5,000 UNITS/ML 1ML VIAL SQ SCH ×2 (09:42→21:15)
[2018-08-02] MEDS: CINACALCET HCL 30 MG TAB (FP) PO SCH (09:43)
--- NOTE | 2018-08-02 10:06 | PN ---
Progress Note, Physician Chief Complaint: AWAKE AND ALERT DENIES ABD PAIN C/O LEFT TOE PAIN - Current Medication List Current Medications: Active Medications Acetaminophen (Tylenol -) 650 mg PO Q6H PRN PRN Reason: PAIN LEVEL 1-5 Last Admin: 07/30/18 16:51 Dose: 650 mg Amlodipine Besylate (Norvasc -) 10 mg PO DAILY [facility] Last Admin: 08/02/18 09:42 Dose: 10 mg Aspirin (Ecotrin -) 81 mg PO DAILY [facility] Last Admin: 08/02/18 09:42 Dose: 81 mg Atorvastatin Calcium (Lipitor -) 80 mg PO HS [facility] Last Admin: 08/01/18 21:02 Dose: 80 mg Carvedilol (Coreg -) 25 mg PO BID [facility] Last Admin: 08/02/18 09:42 Dose: 25 mg Cinacalcet (Sensipar -) 90 mg PO DAILY [facility] Last Admin: 08/02/18 09:43 Dose: 90 mg Heparin Sodium (Porcine) (Heparin -) 5,000 unit SQ BID [facility] Last Admin: 08/02/18 09:42 Dose: 5,000 unit Sodium Chloride (Normal Saline -) 250 mls @ 3,000 mls/hr IV PRN PRN PRN Reason: Hypotension during Dialysis Stop: 07/31/18 15:47 Oxycodone HCl (Roxicodone -) 5 mg PO Q6H PRN PRN Reason: PAIN LEVEL 7 - 10 Last Admin: 07/30/18 22:28 Dose: 5 mg Pantoprazole Sodium (Protonix -) 40 mg PO DAILY [facility] Last Admin: 08/02/18 09:42 Dose: 40 mg Polyethylene Glycol (Miralax (For Daily Use) -) 17 gm PO TID [facility] Last Admin: 08/02/18 05:41 Dose: Not Given - Objective Vital Signs: Vital Signs Temperature 98 F 08/02/18 05:00 Pulse Rate 63 08/02/18 05:00 Respiratory Rate 18 08/02/18 05:00 Blood Pressure 150/60 08/02/18 05:00 O2 Sat by Pulse Oximetry (%) 97 08/02/18 02:00 Constitutional: Yes: Mild Distress Eyes: Yes: WNL HENT: Yes: WNL Neck: Yes: WNL Cardiovascular: Yes: Pulse Irregular Respiratory: Yes: WNL Gastrointestinal: Yes: WNL Musculoskeletal: Yes: Joint Stiffness, Muscle Pain Extremities: Yes: Deformity Neurological: Yes: Pre-Existing Deficit Labs: CBC, BMP 08/01/18 07:30 08/01/18 07:30 Problem List - Problems (1) Abdominal pain Code(s): R10.9 - UNSPECIFIED ABDOMINAL PAIN (2) Alkaline phosphatase elevation Code(s): R74.8 - ABNORMAL LEVELS OF OTHER SERUM ENZYMES (3) Diastolic dysfunction Code(s): I51.89 - OTHER ILL-DEFINED HEART DISEASES (4) ESRD (end stage renal disease) on dialysis Code(s): N18.6 - END STAGE RENAL DISEASE; Z99.2 - DEPENDENCE ON RENAL DIALYSIS (5) Elevated lipase Code(s): R74.8 - ABNORMAL LEVELS OF OTHER SERUM ENZYMES (6) 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
--- NOTE | 2018-08-02 10:14 | PN ---
Progress Note, Physician Chief Complaint: some nausea today - denies abdominal pain - Current Medication List Current Medications: Active Medications Acetaminophen (Tylenol -) 650 mg PO Q6H PRN PRN Reason: PAIN LEVEL 1-5 Last Admin: 07/30/18 16:51 Dose: 650 mg Amlodipine Besylate (Norvasc -) 10 mg PO DAILY [facility] Last Admin: 08/02/18 09:42 Dose: 10 mg Aspirin (Ecotrin -) 81 mg PO DAILY [facility] Last Admin: 08/02/18 09:42 Dose: 81 mg Atorvastatin Calcium (Lipitor -) 80 mg PO HS [facility] Last Admin: 08/01/18 21:02 Dose: 80 mg Carvedilol (Coreg -) 25 mg PO BID [facility] Last Admin: 08/02/18 09:42 Dose: 25 mg Cinacalcet (Sensipar -) 90 mg PO DAILY [facility] Last Admin: 08/02/18 09:43 Dose: 90 mg Heparin Sodium (Porcine) (Heparin -) 5,000 unit SQ BID [facility] Last Admin: 08/02/18 09:42 Dose: 5,000 unit Sodium Chloride (Normal Saline -) 250 mls @ 3,000 mls/hr IV PRN PRN PRN Reason: Hypotension during Dialysis Stop: 07/31/18 15:47 Oxycodone HCl (Roxicodone -) 5 mg PO Q6H PRN PRN Reason: PAIN LEVEL 7 - 10 Last Admin: 07/30/18 22:28 Dose: 5 mg Pantoprazole Sodium (Protonix -) 40 mg PO DAILY [facility] Last Admin: 08/02/18 09:42 Dose: 40 mg Polyethylene Glycol (Miralax (For Daily Use) -) 17 gm PO TID [facility] Last Admin: 08/02/18 05:41 Dose: Not Given - Objective Vital Signs: Vital Signs Temperature 98 F 08/02/18 05:00 Pulse Rate 63 08/02/18 05:00 Respiratory Rate 18 08/02/18 05:00 Blood Pressure 150/60 08/02/18 05:00 O2 Sat by Pulse Oximetry (%) 97 08/02/18 02:00 Constitutional: Yes: No Distress Eyes: Yes: WNL HENT: Yes: WNL Neck: Yes: WNL Cardiovascular: Yes: WNL, Regular Rate and Rhythm Respiratory: Yes: WNL, Regular, CTA Bilaterally Gastrointestinal: Yes: WNL, Normal Bowel Sounds, Soft Extremities: Yes: WNL Edema: No Labs: CBC, BMP 08/01/18 07:30 08/01/18 07:30 Problem List - Problems (1) Abdominal pain Assessment/Plan: MRCP reviewed - enlarged pancreas ; no choledocholithiasis - will tentatively make her NPO midnight for EGD as planned by Dr. Shaw. She would also benefit from an EUS to further evaluate the pancreas. - continue PPI / clear liquid diet today - am labs Code(s): R10.9 - UNSPECIFIED ABDOMINAL PAIN
[2018-08-02] MEDS: ACETAMINOPHEN 325 MG TABLET (FP) PO PRN (14:08)
--- NOTE | 2018-08-02 15:06 | PN ---
Progress Note (short form) - Note Progress Note: Chief Complaint: Events noted, notes reviewed, denies any chest pain or dyspnea History of Present Illness: Seen and examined. Events noted, notes reviewed, denies any chest pain or dyspnea Awaiting GI input in reference to planned intervention MPI study revealed small zone of inferolateral wall ischemia with mild global LV hypokinesia and LV EF of 52% Echocardiography dated 12/02/2017 revealed Mod cLVH with mildly decreased LV systolic function, mild RVH with normal function, LVEF 45-50%, moderate LAE mild AR and MR Echocardiography dated 11/26/16 revealed normal LV size and function, with trace to mild MR R&LHc at [facility] 12/21/17. Moderate pulm HTN PAP 61/23/38 euvolemic PCWP 13 LVEDP 15 mmHg, non-obstructive CAD with diffuse distal LAD disease not amenable to PCI, normal LCx and RCA, preserved LVEF 55%, no aortic stenosis or mitral regurgitation. - Current Medication List Current Medications Acetaminophen (Tylenol -) 650 mg PO Q6H PRN PRN Reason: PAIN LEVEL 1-5 Last Admin: 08/02/18 14:08 Dose: 650 mg Amlodipine Besylate (Norvasc -) 10 mg PO DAILY [facility] Last Admin: 08/02/18 09:42 Dose: 10 mg Aspirin (Ecotrin -) 81 mg PO DAILY [facility] Last Admin: 08/02/18 09:42 Dose: 81 mg Atorvastatin Calcium (Lipitor -) 80 mg PO HS [facility] Last Admin: 08/01/18 21:02 Dose: 80 mg Carvedilol (Coreg -) 25 mg PO BID [facility] Last Admin: 08/02/18 09:42 Dose: 25 mg Cinacalcet (Sensipar -) 90 mg PO DAILY [facility] Last Admin: 08/02/18 09:43 Dose: 90 mg Heparin Sodium (Porcine) (Heparin -) 5,000 unit SQ BID [facility] Last Admin: 08/02/18 09:42 Dose: 5,000 unit Sodium Chloride (Normal Saline -) 250 mls @ 3,000 mls/hr IV PRN PRN PRN Reason: Hypotension during Dialysis Stop: 07/31/18 15:47 Oxycodone HCl (Roxicodone -) 5 mg PO Q6H PRN PRN Reason: PAIN LEVEL 7 - 10 Last Admin: 07/30/18 22:28 Dose: 5 mg Pantoprazole Sodium (Protonix -) 40 mg PO DAILY [facility] Last Admin: 08/02/18 09:42 Dose: 40 mg Polyethylene Glycol (Miralax (For Daily Use) -) 17 gm PO TID [facility] Last Admin: 08/02/18 14:08 Dose: 17 gm - Objective Vital Signs: Last Vital Signs Temp Pulse Resp BP Pulse Ox 98.0 F 63 18 145/65 98 08/02/18 14:39 08/02/18 14:39 08/02/18 14:39 08/02/18 14:39 08/02/18 10:00 Intake & Output 07/30/18 07/31/18 08/01/18 08/02/18 23:59 23:59 23:59 23:59 Intake Total 850 900 700 0 Balance 850 900 700 0 Constitutional: No Distress, Calm Neck: Supple Negative JVD Cardiovascular: S1 S2 Regular Rate Rhythm Respiratory: Diminished Breath Sounds at the Bases Bilaterally Gastrointestinal: Soft Benign Normal Bowel Sounds Ext: No Edema Labs: CBC, BMP 08/01/18 07:30 08/01/18 07:30 Hepatic Panel Total Bilirubin 0.3 mg/dL (0.2-1) 08/01/18 07:30 Direct Bilirubin 0.1 mg/dL (0.0-0.2) 08/01/18 07:30 AST 22 U/L (15-37) 08/01/18 07:30 ALT 15 U/L (13-61) 08/01/18 07:30 Alkaline Phosphatase 222 U/L (45-117) H 08/01/18 07:30 Albumin 3.4 g/dl (3.4-5.0) 08/01/18 07:30 Assessment/Plan ASSESSMENT: 1. Abdominal pain, pancreatitis 2. Diastolic LV dysfunction with clinical class 0 NYHA classification LV failure 3. CAD angina pectoris with evidence of demand ischemia 4. Hypertensive cardiovascular disease 5. Hypercholesterolemia 6. ESRD on HD PLAN: 1. Continue to withhold Plavix pending planned intervention, but continue ASA 2. Continue Coreg 3. Continue Norvasc 4. Continue Lipitor 5. HD per renal service 6. GI F/U regarding intervention Marvin Schilling MD
--- NOTE | 2018-08-02 18:29 | PN ---
Progress Note, Physician History of Present Illness: Pt seen and examined at bedside. She is awake and alert. She denies abdominal pain. - Current Medication List Current Medications: Active Medications Acetaminophen (Tylenol -) 650 mg PO Q6H PRN PRN Reason: PAIN LEVEL 1-5 Last Admin: 08/02/18 14:08 Dose: 650 mg Amlodipine Besylate (Norvasc -) 10 mg PO DAILY [facility] Last Admin: 08/02/18 09:42 Dose: 10 mg Aspirin (Ecotrin -) 81 mg PO DAILY [facility] Last Admin: 08/02/18 09:42 Dose: 81 mg Atorvastatin Calcium (Lipitor -) 80 mg PO HS [facility] Last Admin: 08/01/18 21:02 Dose: 80 mg Carvedilol (Coreg -) 25 mg PO BID [facility] Last Admin: 08/02/18 09:42 Dose: 25 mg Cinacalcet (Sensipar -) 90 mg PO DAILY [facility] Last Admin: 08/02/18 09:43 Dose: 90 mg Heparin Sodium (Porcine) (Heparin -) 5,000 unit SQ BID [facility] Last Admin: 08/02/18 09:42 Dose: 5,000 unit Sodium Chloride (Normal Saline -) 250 mls @ 3,000 mls/hr IV PRN PRN PRN Reason: Hypotension during Dialysis Stop: 07/31/18 15:47 Oxycodone HCl (Roxicodone -) 5 mg PO Q6H PRN PRN Reason: PAIN LEVEL 7 - 10 Last Admin: 07/30/18 22:28 Dose: 5 mg Pantoprazole Sodium (Protonix -) 40 mg PO DAILY [facility] Last Admin: 08/02/18 09:42 Dose: 40 mg Polyethylene Glycol (Miralax (For Daily Use) -) 17 gm PO TID [facility] Last Admin: 08/02/18 14:08 Dose: 17 gm - Objective Vital Signs: Vital Signs Temperature 98.0 F 08/02/18 14:39 Pulse Rate 63 08/02/18 14:39 Respiratory Rate 18 08/02/18 14:39 Blood Pressure 145/65 08/02/18 14:39 O2 Sat by Pulse Oximetry (%) 98 08/02/18 18:00 Constitutional: Yes: Calm Eyes: Yes: Conjunctiva Clear HENT: Yes: Atraumatic Cardiovascular: Yes: S1, S2 Respiratory: Yes: CTA Bilaterally Gastrointestinal: Yes: Soft Genitourinary: Yes: WNL Musculoskeletal: Yes: WNL Edema: No Neurological: Yes: Oriented Psychiatric: Yes: Oriented Labs: CBC, BMP 08/01/18 07:30 08/01/18 07:30 Problem List - Problems (1) ESRD (end stage renal disease) on dialysis Code(s): N18.6 - END STAGE RENAL DISEASE; Z99.2 - DEPENDENCE ON RENAL DIALYSIS (2) Elevated lipase Code(s): R74.8 - ABNORMAL LEVELS OF OTHER SERUM ENZYMES Assessment/Plan Current Medications Generic Name Dose Route Start Last Admin Trade Name Freq PRN Reason Stop Dose Admin Acetaminophen 650 mg 07/30/18 15:49 08/02/18 14:08 Tylenol - PO 650 mg Q6H PRN Administration PAIN LEVEL 1-5 Amlodipine Besylate 10 mg 07/31/18 10:00 08/02/18 09:42 Norvasc - PO 10 mg DAILY [facility] Administration Aspirin 81 mg 08/01/18 12:45 08/02/18 09:42 Ecotrin - PO 81 mg DAILY [facility] Administration Atorvastatin Calcium 80 mg 07/29/18 22:00 08/01/18 21:02 Lipitor - PO 80 mg HS [facility] Administration Carvedilol 25 mg 07/29/18 10:00 08/02/18 09:42 Coreg - PO 25 mg BID [facility] Administration Cinacalcet 90 mg 07/29/18 10:00 08/02/18 09:43 Sensipar - PO 90 mg DAILY [facility] Administration Heparin Sodium (Porcine) 5,000 unit 07/29/18 10:00 08/02/18 09:42 Heparin - SQ 5,000 unit BID [facility] Administration Sodium Chloride 250 mls @ 3,000 mls/hr 07/30/18 15:47 Normal Saline - IV 07/31/18 15:47 PRN PRN Hypotension during Dialysis Oxycodone HCl 5 mg 07/30/18 14:51 07/30/18 22:28 Roxicodone - PO 5 mg Q6H PRN Administration PAIN LEVEL 7 - 10 Pantoprazole Sodium 40 mg 07/29/18 10:00 08/02/18 09:42 Protonix - PO 40 mg DAILY [facility] Administration Polyethylene Glycol 17 gm 07/31/18 22:00 08/02/18 14:08 Miralax (For Daily Use) - PO 17 gm TID [facility] Administration Impression 1. ESRD 2. elevated lipase 3. hx of anemia 4. HTN 5. gerd 6. cad 7. hld Plan - possible endoscopy tomorrow - next HD on Friday - GI workup in progress - pt tolerating diet, will be on clears, volume status is stable - mri shows diffuse enlargement of pancreas, GI aware and following Dr Wright
[2018-08-02] MEDS: ATORVASTATIN CA 80 MG TABLET (FP) PO SCH (21:15)
[2018-08-03] MEDS: POLYETHYLENE GLYCOL 3350 119 GM BTL PO SCH ×3 (05:01→22:11)
--- NOTE | 2018-08-03 10:56 | PN ---
Progress Note (short form) - Note Progress Note: GI Procedure NOte: Please see scanned EGD report. Erosive gastritis noted. No penetrating duodenal ulcer or ampullary mass to account for pancreatitis. Needs referral for EUS to exclude pancreatic cancer. Will advance diet. 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
--- NOTE | 2018-08-03 11:32 | PN ---
Progress Note, Physician History of Present Illness: Abd pain resolved, EGD shows erosive gastritis, denies chest pain or dyspnea. - Current Medication List Current Medications: Active Medications Acetaminophen (Tylenol -) 650 mg PO Q6H PRN PRN Reason: PAIN LEVEL 1-5 Last Admin: 08/02/18 14:08 Dose: 650 mg Amlodipine Besylate (Norvasc -) 10 mg PO DAILY [facility] Last Admin: 08/02/18 09:42 Dose: 10 mg Aspirin (Ecotrin -) 81 mg PO DAILY [facility] Last Admin: 08/02/18 09:42 Dose: 81 mg Atorvastatin Calcium (Lipitor -) 80 mg PO HS [facility] Last Admin: 08/02/18 21:15 Dose: 80 mg Carvedilol (Coreg -) 25 mg PO BID [facility] Last Admin: 08/02/18 21:15 Dose: 25 mg Cinacalcet (Sensipar -) 90 mg PO DAILY [facility] Last Admin: 08/02/18 09:43 Dose: 90 mg Heparin Sodium (Porcine) (Heparin -) 5,000 unit SQ BID [facility] Last Admin: 08/02/18 21:15 Dose: Not Given Sodium Chloride (Normal Saline -) 250 mls @ 3,000 mls/hr IV PRN PRN PRN Reason: Hypotension during Dialysis Stop: 07/31/18 15:47 Oxycodone HCl (Roxicodone -) 5 mg PO Q6H PRN PRN Reason: PAIN LEVEL 7 - 10 Last Admin: 07/30/18 22:28 Dose: 5 mg Pantoprazole Sodium (Protonix -) 40 mg PO DAILY [facility] Last Admin: 08/02/18 09:42 Dose: 40 mg Polyethylene Glycol (Miralax (For Daily Use) -) 17 gm PO TID [facility] Last Admin: 08/03/18 05:01 Dose: Not Given - Objective Vital Signs: Vital Signs Temperature 99.8 F H 08/03/18 11:00 Pulse Rate 61 08/03/18 11:00 Respiratory Rate 18 08/03/18 11:00 Blood Pressure 144/74 08/03/18 11:00 O2 Sat by Pulse Oximetry (%) 100 08/03/18 10:01 Constitutional: Yes: No Distress, Calm, Thin Neck: Yes: Supple Cardiovascular: Yes: Regular Rate and Rhythm Respiratory: Yes: Regular, Diminished Gastrointestinal: Yes: Soft, Hypoactive Bowel Sounds Edema: No Labs: CBC, BMP 08/01/18 07:30 08/01/18 07:30 Problem List - Problems (1) 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 Code(s): I11.9 - HYPERTENSIVE HEART DISEASE WITHOUT HEART FAILURE (2) Diastolic dysfunction Code(s): I51.89 - OTHER ILL-DEFINED HEART DISEASES (3) ESRD (end stage renal disease) on dialysis Code(s): N18.6 - END STAGE RENAL DISEASE; Z99.2 - DEPENDENCE ON RENAL DIALYSIS (4) Anemia Code(s): D64.9 - ANEMIA, UNSPECIFIED Qualifiers: Anemia type: due to chronic kidney disease (5) Demand ischemia Code(s): I24.8 - OTHER FORMS OF ACUTE ISCHEMIC HEART DISEASE (6) ESRD (end stage renal disease) Code(s): N18.6 - END STAGE RENAL DISEASE (7) HTN, goal below 150/90 Code(s): I10 - ESSENTIAL (PRIMARY) HYPERTENSION (8) Hypercholesterolemia Code(s): E78.00 - PURE HYPERCHOLESTEROLEMIA, UNSPECIFIED (9) Pancreatitis Code(s): K85.90 - ACUTE PANCREATITIS WITHOUT NECROSIS OR INFECTION, UNSP Qualifiers: Chronicity: acute Pancreatitis type: biliary Acute pancreatitis complication: unspecified Qualified Code(s): K85.10 - Biliary acute pancreatitis without necrosis or infection Assessment/Plan MPI study revealed small zone of inferolateral wall ischemia with mild global LV hypokinesia and LV EF of 52% Echocardiography dated 12/02/2017 revealed Mod cLVH with mildly decreased LV systolic function, mild RVH with normal function, LVEF 45-50%, moderate LAE mild AR and MR Echocardiography dated 11/26/16 revealed normal LV size and function, with trace to mild MR R&LHc at [facility] 12/21/17. Moderate pulm HTN PAP 61/23/38 euvolemic PCWP 13 LVEDP 15 mmHg, non-obstructive CAD with diffuse distal LAD disease not amenable to PCI, normal LCx and RCA, preserved LVEF 55%, no aortic stenosis or mitral regurgitation, Mynx deployed right [employer] access site, plan for continued medical therapy, HD per renal, outpatient f/u for management of restrictive cardiomyopathy and pulm HTN. 1. Abd pain -> acute pancreatitis with erosive gastritis 2. Diastolic dysfunction w/ h/o failure 3. CAD, demand ischemia 4. Hypertensive cardiovascular disease, BP not at goal 5. Hypercholesterolemia 6. ESRD on HD PLAN: 1. Continue ASA 81 qd and resume Plavix 75 qd with caution and with close monitoring of platelet count, trops flat 2. Continue Coreg 25 bid 3. Continue Cozaar 100 qd 4. Increase Norvasc 10 qd 5. Continue Lipitor 80 qd 6. HD per renal 7. Lipase downtrending, MRCP neg for cholelithiasis, Needs referral for EUS to exclude pancreatic cancer
[2018-08-03] MEDS: HEPARIN NA (PORCINE) 5,000 UNITS/ML 1ML VIAL SQ SCH ×2 (11:44→22:11)
[2018-08-03] MEDS: amLODIPine BESYLATE 5 MG TABLET (FP) PO SCH (11:44)
[2018-08-03] MEDS: CARVEDILOL 25 MG TABLET (FP) PO SCH ×2 (11:44→22:11)
[2018-08-03] MEDS: ASPIRIN COATED 81 MG TABLET.EC PO SCH (11:44)
[2018-08-03] MEDS: PANTOPRAZOLE 40 MG TABLET (FP) PO SCH (11:44)
[2018-08-03] MEDS: CINACALCET HCL 30 MG TAB (FP) PO SCH (11:45)
--- NOTE | 2018-08-03 13:50 | CONSULT ---
Consult Consult Specialty:: Podiatry Reason for Consultation:: Pain left foot - History of Present Illness Chief Complaint: Pain left foot no prior hx or trauma. History of Present Illness: Patient states has been painful for a week. - History Source History Provided By: Patient - Past Medical History Cardio/Vascular: Yes: CAD (12/17 cardiac cath- distal LAD disease not amenable to stenting), HTN, Hyperlipdemia, Pulmonary Hypertension (by cardiac cath), Other (Had LUE AV fistula stenting 2016 ) Gastrointestinal: Yes: Constipation Renal/: Yes: Renal Failure, Hemodialysis ...LMP: 06/02/13 - Past Surgical History Past Surgical History: Yes: AV Fistula/Graft (Had LUE AV fistula stenting 2016 ) - Alcohol/Substance Use Hx Alcohol Use: Yes (rare only on major holidays) History of Substance Use: reports: None - Smoking History Smoking history: Never smoked Have you smoked in the past 12 months: No Aproximately how many cigarettes per day: 0 - Social History Usual Living Arrangement: With Spouse ADL: Independent Occupation: unemployed History of Recent Travel: No Home Medications - Allergies Allergies/Adverse Reactions: Allergies Allergy/AdvReac Type Severity Reaction Status Date / Time Penicillins Allergy Severe Difficulty Verified 07/29/18 04:16 Breathing doxercalciferol AdvReac Intermediate Itching Verified 07/29/18 04:17 [From Hectorol] - Home Medications Home Medications: Ambulatory Orders Aspirin [ASA -] 81 mg PO DAILY #30 tab.chew 12/08/17 Clopidogrel Bisulfate [Plavix -] 75 mg PO DAILY #30 tablet 12/08/17 Losartan Potassium [Cozaar -] 100 mg PO DAILY #30 tablet 12/08/17 Sevelamer Carbonate [Renvela Powder Packet -] 0.8 gm PO TIDCM #90 powd.pack 02/17 levoFLOXacin [Levaquin -] 250 mg PO Q48H #1 tablet 12/08/17 Acetaminophen [Tylenol .Regular Strength -] 650 mg PO Q6H PRN tablet 08/03/18 Amlodipine Besylate [Norvasc -] 10 mg PO DAILY #30 tablet 08/03/18 Aspirin Coated [Ecotrin -] 81 mg PO DAILY #30 tablet.ec 08/03/18 Atorvastatin Ca [Lipitor] 80 mg PO HS #30 tablet 08/03/18 Carvedilol [Coreg -] 25 mg PO BID #60 tablet 08/03/18 Cinacalcet HCl [Sensipar -] 90 mg PO DAILY #90 tab 08/03/18 Clopidogrel Bisulfate [Plavix -] 75 mg PO DAILY #30 tablet 08/03/18 Pantoprazole Sodium [Protonix -] 40 mg PO DAILY #30 tablet.ec 08/03/18 Polyethylene Glycol 3350 [Miralax 119 gm Btl -] 17 gm PO TID #1 bottle 08/03/18 Family Disease History - Family Disease History Family Disease History: Diabetes: Father ( of diabetic complication), Other : Mother (hypertensive) Other Family History: no cancer Physical Exam Vital Signs: Vital Signs Temperature 99.8 F H 08/03/18 11:00 Pulse Rate 61 08/03/18 11:00 Respiratory Rate 18 08/03/18 11:00 Blood Pressure 144/74 08/03/18 11:00 O2 Sat by Pulse Oximetry (%) 100 08/03/18 10:01 Extremities: Yes: Other (+tender 2nd and 3rd mpj area, +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 arthralgia neuralgia Discussed shoe gear. If pain continues recommend NCV. Will follow.
--- NOTE | 2018-08-03 16:16 | DS ---
Physical Examination Vital Signs: Vital Signs Temperature 97.3 F L 08/03/18 14:25 Pulse Rate 69 08/03/18 14:25 Respiratory Rate 20 08/03/18 14:25 Blood Pressure 141/67 08/03/18 14:25 O2 Sat by Pulse Oximetry (%) 99 08/03/18 11:00 Findings/Remarks: Patient is a 52 y/o male with past medical history of ESRD on HD, HTN. Patient presented to ER with complaints of epigastric pain for 3-4 days accompanied with heartburn. Labs done in ER show elevated lipase 819. GI on board and EGD performed today which shows erosive gastritis, no penetrating duodenal ulcer, or ampullary mass to account for pancreatitis. GI recommend EUS as outpatient to exclude pancreatic cancer. Since admission lipase is trending down, currently 419, abdominal pain has subsided. Constitutional: Yes: Well Nourished, No Distress, Calm Eyes: Yes: Conjunctiva Clear HENT: Yes: Atraumatic Cardiovascular: Yes: Regular Rate and Rhythm Respiratory: Yes: Regular, CTA Bilaterally Gastrointestinal: Yes: Normal Bowel Sounds, Soft, Other (non tender) Musculoskeletal: Yes: WNL Extremities: Yes: WNL, Other (LUE AV fistula) Edema: No Peripheral Pulses WNL: No Neurological: Yes: Alert, Oriented Psychiatric: Yes: Alert, Oriented Labs: CBC, BMP 08/01/18 07:30 08/01/18 07:30 Discharge Summary Reason For Visit: PANCREATITIS, END STAGE RENAL FAILURE ON DIALYSIS Current Active Problems Abdominal pain (Acute) Alkaline phosphatase elevation (Acute) Constipation (Acute) Diastolic dysfunction (Acute) ESRD (end stage renal disease) on dialysis (Acute) Elevated lipase (Acute) Fecal retention (Acute) Gallbladder polyp (Acute) 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 EGD Hospital Course: see progress notes Laboratory Tests 07/29/18 07/29/18 07/29/18 02:15 02:15 02:15 WBC 4.5 RBC 3.89 Hgb 12.9 Hct 37.1 D MCV 95.4 MCH 33.1 MCHC 34.7 RDW 14.4 Plt Count 117 L D MPV 9.5 Absolute Neuts (auto) 2.6 Neutrophils % 58.7 Lymphocytes % 25.3 D Monocytes % 8.2 Eosinophils % 7.0 H Basophils % 0.8 Nucleated RBC % 0 Sodium 136 Potassium 4.9 Chloride 98 Carbon Dioxide 29 Anion Gap 9 BUN 56 H Creatinine 10.9 H* Creat Clearance w eGFR 3.68 Random Glucose 108 H Uric Acid Calcium 8.3 L Magnesium Total Bilirubin 0.4 Direct Bilirubin GGT AST 24 ALT 16 Alkaline Phosphatase 275 H Troponin I 0.06 H C-Reactive Protein Total Protein 7.1 Albumin 3.6 Triglycerides Cholesterol Total LDL Cholesterol HDL Cholesterol Total Amylase Lipase 819 H CA 19-9 Antigen Hep A IgM Ab Confirm Hepatitis A Ab Total Hep Bs Antigen Hep Bs Antibody Hep B Core Total Ab Hep C Ab Diagnostic 07/29/18 07/29/18 07/29/18 08:15 08:15 12:45 WBC 3.9 L RBC 4.13 Hgb 13.6 Hct 39.4 MCV 95.6 MCH 32.9 MCHC 34.5 RDW 14.3 Plt Count 118 L MPV 9.5 Absolute Neuts (auto) Neutrophils % Lymphocytes % Monocytes % Eosinophils % Basophils % Nucleated RBC % Sodium 136 Potassium 5.0 Chloride 99 Carbon Dioxide 25 Anion Gap 12 BUN 57 H Creatinine 11.4 H* Creat Clearance w eGFR 3.50 Random Glucose 93 Uric Acid Calcium 8.3 L Magnesium 3.0 H Total Bilirubin 0.5 Direct Bilirubin 0.1 GGT AST 25 ALT 16 Alkaline Phosphatase 285 H Troponin I C-Reactive Protein Total Protein 7.3 Albumin 3.9 Triglycerides 152 H Cholesterol 203 H Total LDL Cholesterol 117 H HDL Cholesterol 58 Total Amylase Lipase CA 19-9 Antigen Hep A IgM Ab Confirm Hepatitis A Ab Total Hep Bs Antigen Hep Bs Antibody Hep B Core Total Ab Hep C Ab Diagnostic <0.1 07/29/18 07/29/18 07/30/18 12:45 14:55 07:27 WBC 3.8 L RBC 3.89 Hgb 12.6 Hct 36.9 MCV 94.8 MCH 32.3 MCHC 34.0 RDW 14.0 Plt Count 111 L MPV 9.1 Absolute Neuts (auto) Neutrophils % Lymphocytes % Monocytes % Eosinophils % Basophils % Nucleated RBC % Sodium Potassium Chloride Carbon Dioxide Anion Gap BUN Creatinine Creat Clearance w eGFR Random Glucose Uric Acid Calcium Magnesium Total Bilirubin Direct Bilirubin GGT AST ALT Alkaline Phosphatase Troponin I 0.06 H C-Reactive Protein Total Protein Albumin Triglycerides Cholesterol Total LDL Cholesterol HDL Cholesterol Total Amylase Lipase CA 19-9 Antigen Hep A IgM Ab Confirm Negative Hepatitis A Ab Total Positive H Hep Bs Antigen Negative Hep Bs Antibody Reactive Hep B Core Total Ab Negative Hep C Ab Diagnostic 07/30/18 07/31/18 07/31/18 07:27 07:16 07:16 WBC 4.2 RBC 4.09 Hgb 13.1 Hct 39.6 MCV 96.8 H MCH 32.1 MCHC 33.1 RDW 14.8 Plt Count 124 L MPV 9.8 Absolute Neuts (auto) Neutrophils % Lymphocytes % Monocytes % Eosinophils % Basophils % Nucleated RBC % Sodium 141 137 Potassium 4.2 5.0 Chloride 101 102 Carbon Dioxide 30 29 Anion Gap 10 7 L BUN 20 H 38 H Creatinine 6.6 H 9.2 H* Creat Clearance w eGFR 6.57 4.48 Random Glucose 87 85 Uric Acid Calcium 7.7 L 8.1 L Magnesium Total Bilirubin 0.4 0.4 Direct Bilirubin GGT AST 24 27 ALT 17 18 Alkaline Phosphatase 228 H 256 H Troponin I 0.07 H C-Reactive Protein Total Protein 6.4 7.4 Albumin 3.3 L 3.9 Triglycerides Cholesterol Total LDL Cholesterol HDL Cholesterol Total Amylase Lipase 997 H 634 H CA 19-9 Antigen Hep A IgM Ab Confirm Hepatitis A Ab Total Hep Bs Antigen Hep Bs Antibody Hep B Core Total Ab Hep C Ab Diagnostic 07/31/18 08/01/18 08/01/18 18:30 07:30 07:30 WBC RBC Hgb Hct MCV MCH MCHC RDW Plt Count MPV Absolute Neuts (auto) Neutrophils % Lymphocytes % Monocytes % Eosinophils % Basophils % Nucleated RBC % Sodium 138 Potassium 4.7 Chloride 100 Carbon Dioxide 31 Anion Gap 8 BUN 18 Creatinine 6.5 H Creat Clearance w eGFR 6.69 Random Glucose 83 Uric Acid 2.7 Calcium 8.6 Magnesium 1.9 Total Bilirubin 0.3 0.5 Direct Bilirubin 0.1 GGT 13 AST 22 22 ALT 15 15 Alkaline Phosphatase 222 H 225 H Troponin I C-Reactive Protein < 0.3 Total Protein 6.5 6.5 Albumin 3.4 3.3 L Triglycerides Cholesterol Total LDL Cholesterol HDL Cholesterol Total Amylase 152 H Lipase 419 H CA 19-9 Antigen Hep A IgM Ab Confirm Hepatitis A Ab Total Hep Bs Antigen Hep Bs Antibody Hep B Core Total Ab Hep C Ab Diagnostic 08/01/18 08/01/18 07:30 07:30 WBC 3.5 L RBC 4.00 Hgb 12.8 Hct 38.1 MCV 95.2 MCH 32.0 MCHC 33.6 RDW 14.3 Plt Count 118 L MPV 9.4 Absolute Neuts (auto) 1.9 Neutrophils % 54.9 Lymphocytes % 25.9 Monocytes % 7.4 Eosinophils % 9.7 H Basophils % 2.1 H Nucleated RBC % 0 Sodium Potassium Chloride Carbon Dioxide Anion Gap BUN Creatinine Creat Clearance w eGFR Random Glucose Uric Acid Calcium Magnesium Total Bilirubin Direct Bilirubin GGT AST ALT Alkaline Phosphatase Troponin I C-Reactive Protein Total Protein Albumin Triglycerides Cholesterol Total LDL Cholesterol HDL Cholesterol Total Amylase Lipase CA 19-9 Antigen 22 Hep A IgM Ab Confirm Hepatitis A Ab Total Hep Bs Antigen Hep Bs Antibody Hep B Core Total Ab Hep C Ab Diagnostic Active Medications Generic Name Dose Route Start Last Admin Trade Name Freq PRN Reason Stop Dose Admin Acetaminophen 650 mg 07/30/18 15:49 08/02/18 14:08 Tylenol - PO 650 mg Q6H PRN Administration PAIN LEVEL 1-5 Amlodipine Besylate 10 mg 07/31/18 10:00 08/03/18 11:44 Norvasc - PO 10 mg DAILY [facility] Administration Aspirin 81 mg 08/01/18 12:45 08/03/18 11:44 Ecotrin - PO 81 mg DAILY [facility] Administration Atorvastatin Calcium 80 mg 07/29/18 22:00 08/02/18 21:15 Lipitor - PO 80 mg HS [facility] Administration Carvedilol 25 mg 07/29/18 10:00 08/03/18 11:44 Coreg - PO 25 mg BID [facility] Administration Cinacalcet 90 mg 07/29/18 10:00 08/03/18 11:45 Sensipar - PO 90 mg DAILY [facility] Administration Clopidogrel Bisulfate 75 mg 08/04/18 10:00 Plavix - PO DAILY [facility] Heparin Sodium (Porcine) 5,000 unit 07/29/18 10:00 08/03/18 11:44 Heparin - SQ Not Given BID [facility] Sodium Chloride 250 mls @ 3,000 mls/hr 07/30/18 15:47 Normal Saline - IV 07/31/18 15:47 PRN PRN Hypotension during Dialysis Oxycodone HCl 5 mg 07/30/18 14:51 07/30/18 22:28 Roxicodone - PO 5 mg Q6H PRN Administration PAIN LEVEL 7 - 10 Pantoprazole Sodium 40 mg 07/29/18 10:00 08/03/18 11:44 Protonix - PO 40 mg DAILY [facility] Administration Polyethylene Glycol 17 gm 07/31/18 22:00 08/03/18 13:37 Miralax (For Daily Use) - PO 17 gm TID [facility] Administration Condition: Stable - Instructions Diet, Activity, Other Instructions: Follow up with PMD Follow up with [employer] Dr Wright, attend dialysis on scheduled days Follow up with Dr. Rivera Kimbrough for EUS, call office to make appointment 1 week from discharge Follow up with GI Dr Shaw continue med regimen as prescribed if develop severe abdominal pain go to ER Referrals: Niru Medina MD [Primary Care Provider] - Rivera Kimbrough MD [Non Staff, Medical] - Perfecto Wright MD [Staff Physician] - Drake Shaw MD [Staff Physician] - Todd Song DPM [Staff Physician] - Disposition: HOME - Home Medications Comprehensive Discharge Medication List: Ambulatory Orders Amlodipine Besylate [Norvasc -] 5 mg PO DAILY #30 tablet 12/08/17 Aspirin [ASA -] 81 mg PO DAILY #30 tab.chew 12/08/17 Atorvastatin Ca [Lipitor] 80 mg PO HS #30 tablet 12/08/17 Carvedilol [Coreg -] 25 mg PO BID #60 tablet 12/08/17 Cinacalcet HCl [Sensipar -] 90 mg PO DAILY #90 tab 12/08/17 Clopidogrel Bisulfate [Plavix -] 75 mg PO DAILY #30 tablet 12/08/17 Losartan Potassium [Cozaar -] 100 mg PO DAILY #30 tablet 12/08/17 Sevelamer Carbonate [Renvela Powder Packet -] 0.8 gm PO TIDCM #90 powd.pack 02/17 levoFLOXacin [Levaquin -] 250 mg PO Q48H #1 tablet 12/08/17
--- NOTE | 2018-08-03 16:48 | PN ---
Progress Note, Physician History of Present Illness: Pt seen and examined at bedside. She is awake and alert. She denies shortness of breath. She is tolerating diet. - Current Medication List Current Medications: Active Medications Acetaminophen (Tylenol -) 650 mg PO Q6H PRN PRN Reason: PAIN LEVEL 1-5 Last Admin: 08/02/18 14:08 Dose: 650 mg Amlodipine Besylate (Norvasc -) 10 mg PO DAILY [facility] Last Admin: 08/03/18 11:44 Dose: 10 mg Aspirin (Ecotrin -) 81 mg PO DAILY [facility] Last Admin: 08/03/18 11:44 Dose: 81 mg Atorvastatin Calcium (Lipitor -) 80 mg PO HS [facility] Last Admin: 08/02/18 21:15 Dose: 80 mg Carvedilol (Coreg -) 25 mg PO BID [facility] Last Admin: 08/03/18 11:44 Dose: 25 mg Cinacalcet (Sensipar -) 90 mg PO DAILY [facility] Last Admin: 08/03/18 11:45 Dose: 90 mg Clopidogrel Bisulfate (Plavix -) 75 mg PO DAILY [facility] Heparin Sodium (Porcine) (Heparin -) 5,000 unit SQ BID [facility] Last Admin: 08/03/18 11:44 Dose: Not Given Sodium Chloride (Normal Saline -) 250 mls @ 3,000 mls/hr IV PRN PRN PRN Reason: Hypotension during Dialysis Stop: 07/31/18 15:47 Oxycodone HCl (Roxicodone -) 5 mg PO Q6H PRN PRN Reason: PAIN LEVEL 7 - 10 Last Admin: 07/30/18 22:28 Dose: 5 mg Pantoprazole Sodium (Protonix -) 40 mg PO DAILY [facility] Last Admin: 08/03/18 11:44 Dose: 40 mg Polyethylene Glycol (Miralax (For Daily Use) -) 17 gm PO TID [facility] Last Admin: 08/03/18 13:37 Dose: 17 gm - Objective Vital Signs: Vital Signs Temperature 97.3 F L 08/03/18 14:25 Pulse Rate 69 08/03/18 14:25 Respiratory Rate 20 08/03/18 14:25 Blood Pressure 141/67 08/03/18 14:25 O2 Sat by Pulse Oximetry (%) 99 08/03/18 11:00 Constitutional: Yes: Calm Eyes: Yes: Conjunctiva Clear HENT: Yes: Atraumatic Cardiovascular: Yes: S1, S2 Respiratory: Yes: CTA Bilaterally Gastrointestinal: Yes: Soft Genitourinary: Yes: WNL Musculoskeletal: Yes: WNL Edema: No Integumentary: Yes: WNL Neurological: Yes: Oriented Psychiatric: Yes: Oriented Labs: CBC, BMP 08/01/18 07:30 08/01/18 07:30 Problem List - Problems (1) ESRD (end stage renal disease) on dialysis Code(s): N18.6 - END STAGE RENAL DISEASE; Z99.2 - DEPENDENCE ON RENAL DIALYSIS (2) Elevated lipase Code(s): R74.8 - ABNORMAL LEVELS OF OTHER SERUM ENZYMES Assessment/Plan Current Medications Generic Name Dose Route Start Last Admin Trade Name Freq PRN Reason Stop Dose Admin Acetaminophen 650 mg 07/30/18 15:49 08/02/18 14:08 Tylenol - PO 650 mg Q6H PRN Administration PAIN LEVEL 1-5 Amlodipine Besylate 10 mg 07/31/18 10:00 08/03/18 11:44 Norvasc - PO 10 mg DAILY [facility] Administration Aspirin 81 mg 08/01/18 12:45 08/03/18 11:44 Ecotrin - PO 81 mg DAILY [facility] Administration Atorvastatin Calcium 80 mg 07/29/18 22:00 08/02/18 21:15 Lipitor - PO 80 mg HS [facility] Administration Carvedilol 25 mg 07/29/18 10:00 08/03/18 11:44 Coreg - PO 25 mg BID [facility] Administration Cinacalcet 90 mg 07/29/18 10:00 08/03/18 11:45 Sensipar - PO 90 mg DAILY [facility] Administration Clopidogrel Bisulfate 75 mg 08/04/18 10:00 Plavix - PO DAILY [facility] Heparin Sodium (Porcine) 5,000 unit 07/29/18 10:00 08/03/18 11:44 Heparin - SQ Not Given BID [facility] Sodium Chloride 250 mls @ 3,000 mls/hr 07/30/18 15:47 Normal Saline - IV 07/31/18 15:47 PRN PRN Hypotension during Dialysis Oxycodone HCl 5 mg 07/30/18 14:51 07/30/18 22:28 Roxicodone - PO 5 mg Q6H PRN Administration PAIN LEVEL 7 - 10 Pantoprazole Sodium 40 mg 07/29/18 10:00 08/03/18 11:44 Protonix - PO 40 mg DAILY [facility] Administration Polyethylene Glycol 17 gm 07/31/18 22:00 08/03/18 13:37 Miralax (For Daily Use) - PO 17 gm TID [facility] Administration Impression 1. ESRD 2. elevated lipase 3. hx of anemia 4. HTN 5. gerd 6. cad 7. hld Plan - pt had endoscopy today - unable to get HD today secondary to scheduling problems with hospital - HD tomorrow in am - will need further GI workup after discharge - pt tolerating diet Dr Wright
[2018-08-03] MEDS ORDERED: SODIUM CHLORIDE 250 ML IV PRN (16:49)
[2018-08-03] MEDS: ATORVASTATIN CA 80 MG TABLET (FP) PO SCH (22:11)
[2018-08-03] MEDS ORDERED: INSULIN (NOVOLOG) ASPART 100 UNITS/ML 10ML VIAL ONE (22:24)
[2018-08-04] MEDS: POLYETHYLENE GLYCOL 3350 119 GM BTL PO SCH ×2 (05:58→13:43)
[2018-08-04 07:59] LABS: HEMATOCRIT 34.3 % (32.4-45.2); HEMOGLOBIN 11.6 GM/dL (10.7-15.3); MCH 32.1 pg (25.7-33.7); MCHC 33.9 g/dl (32.0-36.0); MEAN CELL VOLUME 94.7 fl (80-96); MEAN PLT VOLUME 9.7 fl (7.5-11.1); PLATELET COUNT 111 K/MM3 (134-434); RBC 3.62 M/mm3 (3.60-5.2); RDW 14.2 % (11.6-15.6); WHITE BLOOD COUNT 4.3 K/mm3 (4.0-10.0)
[2018-08-04 08:42] LABS: ANION GAP 11 MMOL/L (8-16); BLOOD UREA NITROGEN 75 mg/dL (7-18); CALCIUM 8.3 mg/dL (8.5-10.1); CHLORIDE 102 mmol/L (98-107); CO2 26 mmol/L (21-32); GLUCOSE,RANDOM 87 mg/dL (74-106); POTASSIUM 5.8 mmol/L (3.5-5.1); SODIUM 139 mmol/L (136-145)
[2018-08-04 09:01] LABS: CREATININE 13.4 mg/dL (0.55-1.3)
[2018-08-04] MEDS ORDERED: CLOPIDOGREL BISULFATE 75 MG TABLET (FP) PO SCH (10:00)
--- NOTE | 2018-08-04 11:26 | PN ---
Progress Note, Physician Chief Complaint: Abdominal pain History of Present Illness: Patient presented to ER with complaints of epigastric pain for 3-4 days accompanied with heartburn. Labs done in ER show elevated lipase 819. GI on board and EGD performed today which shows erosive gastritis, no penetrating duodenal ulcer, or ampullary mass to account for pancreatitis. GI recommend EUS as outpatient to exclude pancreatic cancer. Since admission lipase is trending down, currently 419, abdominal pain has subsided. - Current Medication List Current Medications: Active Medications Acetaminophen (Tylenol -) 650 mg PO Q6H PRN PRN Reason: PAIN LEVEL 1-5 Last Admin: 08/02/18 14:08 Dose: 650 mg Amlodipine Besylate (Norvasc -) 10 mg PO DAILY [facility] Last Admin: 08/03/18 11:44 Dose: 10 mg Aspirin (Ecotrin -) 81 mg PO DAILY [facility] Last Admin: 08/03/18 11:44 Dose: 81 mg Atorvastatin Calcium (Lipitor -) 80 mg PO HS [facility] Last Admin: 08/03/18 22:11 Dose: 80 mg Carvedilol (Coreg -) 25 mg PO BID [facility] Last Admin: 08/03/18 22:11 Dose: 25 mg Cinacalcet (Sensipar -) 90 mg PO DAILY [facility] Last Admin: 08/03/18 11:45 Dose: 90 mg Clopidogrel Bisulfate (Plavix -) 75 mg PO DAILY [facility] Heparin Sodium (Porcine) (Heparin -) 5,000 unit SQ BID [facility] Last Admin: 08/03/18 22:11 Dose: 5,000 unit Sodium Chloride (Normal Saline -) 250 mls @ 3,000 mls/hr IV PRN PRN PRN Reason: Hypotension during Dialysis Stop: 08/04/18 16:49 Pantoprazole Sodium (Protonix -) 40 mg PO DAILY [facility] Last Admin: 08/03/18 11:44 Dose: 40 mg Polyethylene Glycol (Miralax (For Daily Use) -) 17 gm PO TID [facility] Last Admin: 08/04/18 05:58 Dose: 17 gm - Objective Vital Signs: Vital Signs Temperature 98.2 F 08/04/18 08:15 Pulse Rate 66 08/04/18 11:15 Respiratory Rate 18 08/04/18 11:15 Blood Pressure 171/74 H 08/04/18 11:15 O2 Sat by Pulse Oximetry (%) 98 08/04/18 02:00 Constitutional: Yes: Well Nourished, No Distress, Calm Cardiovascular: Yes: Regular Rate and Rhythm Respiratory: Yes: Regular Gastrointestinal: Yes: Normal Bowel Sounds, Soft Musculoskeletal: Yes: WNL Extremities: Yes: WNL Edema: No Peripheral Pulses WNL: Yes Neurological: Yes: Alert, Oriented Psychiatric: Yes: Alert, Oriented Labs: CBC, BMP 08/04/18 07:22 08/04/18 07:22 Problem List - Problems (1) Abdominal pain Assessment/Plan: -s/p EGD-shows erosive gastritis, no penetrating duodenal ulcer, or ampullary mass to account for pancreatitis. -Seen by GI -GI recommend EUS as outpatient to exclude pancreatic cancer. -PPI Code(s): R10.9 - UNSPECIFIED ABDOMINAL PAIN (2) Alkaline phosphatase elevation Assessment/Plan: -trending down -monitor trend outpatient Code(s): R74.8 - ABNORMAL LEVELS OF OTHER SERUM ENZYMES (3) Anemia Assessment/Plan: -2/2 CKD -monitor trend -Epogen as per renal Code(s): D64.9 - ANEMIA, UNSPECIFIED Qualifiers: Anemia type: due to chronic kidney disease (4) ESRD (end stage renal disease) on dialysis Assessment/Plan: -nephrology on board -continue HD on MWF -renal diet Code(s): N18.6 - END STAGE RENAL DISEASE; Z99.2 - DEPENDENCE ON RENAL DIALYSIS (5) Atypical chest pain Assessment/Plan: -likely 2/2 to erosive gastritits -elevation in troponin not true value in light of ESRD -Seen by cardiology Code(s): R07.89 - OTHER CHEST PAIN (6) HTN (hypertension) Assessment/Plan: -continue norvasc and coreg -low Na renal diet Code(s): I10 - ESSENTIAL (PRIMARY) HYPERTENSION Qualifiers: Hypertension type: essential hypertension Qualified Code(s): I10 - Essential (primary) hypertension Assessment/Plan see problem list self ambulatory
--- NOTE | 2018-08-04 11:48 | PN ---
Progress Note, Physician History of Present Illness: Pt seen and examined at bedside. She is awake and alert. She is tolerating HD. She denies abdominal pain. - Current Medication List Current Medications: Active Medications Acetaminophen (Tylenol -) 650 mg PO Q6H PRN PRN Reason: PAIN LEVEL 1-5 Last Admin: 08/02/18 14:08 Dose: 650 mg Amlodipine Besylate (Norvasc -) 10 mg PO DAILY [facility] Last Admin: 08/03/18 11:44 Dose: 10 mg Aspirin (Ecotrin -) 81 mg PO DAILY [facility] Last Admin: 08/03/18 11:44 Dose: 81 mg Atorvastatin Calcium (Lipitor -) 80 mg PO HS [facility] Last Admin: 08/03/18 22:11 Dose: 80 mg Carvedilol (Coreg -) 25 mg PO BID [facility] Last Admin: 08/03/18 22:11 Dose: 25 mg Cinacalcet (Sensipar -) 90 mg PO DAILY [facility] Last Admin: 08/03/18 11:45 Dose: 90 mg Clopidogrel Bisulfate (Plavix -) 75 mg PO DAILY [facility] Heparin Sodium (Porcine) (Heparin -) 5,000 unit SQ BID [facility] Last Admin: 08/03/18 22:11 Dose: 5,000 unit Sodium Chloride (Normal Saline -) 250 mls @ 3,000 mls/hr IV PRN PRN PRN Reason: Hypotension during Dialysis Stop: 08/04/18 16:49 Pantoprazole Sodium (Protonix -) 40 mg PO DAILY [facility] Last Admin: 08/03/18 11:44 Dose: 40 mg Polyethylene Glycol (Miralax (For Daily Use) -) 17 gm PO TID [facility] Last Admin: 08/04/18 05:58 Dose: 17 gm - Objective Vital Signs: Vital Signs Temperature 98.2 F 08/04/18 08:15 Pulse Rate 66 08/04/18 11:15 Respiratory Rate 18 08/04/18 11:15 Blood Pressure 171/74 H 08/04/18 11:15 O2 Sat by Pulse Oximetry (%) 98 08/04/18 02:00 Constitutional: Yes: Calm Eyes: Yes: Conjunctiva Clear HENT: Yes: Atraumatic Neck: Yes: Supple Cardiovascular: Yes: S1, S2 Respiratory: Yes: CTA Bilaterally Gastrointestinal: Yes: Soft Genitourinary: Yes: WNL Edema: No Neurological: Yes: Oriented Psychiatric: Yes: Oriented Labs: CBC, BMP 08/04/18 07:22 08/04/18 07:22 Problem List - Problems (1) ESRD (end stage renal disease) on dialysis Code(s): N18.6 - END STAGE RENAL DISEASE; Z99.2 - DEPENDENCE ON RENAL DIALYSIS (2) Elevated lipase Code(s): R74.8 - ABNORMAL LEVELS OF OTHER SERUM ENZYMES Assessment/Plan Current Medications Generic Name Dose Route Start Last Admin Trade Name Freq PRN Reason Stop Dose Admin Acetaminophen 650 mg 07/30/18 15:49 08/02/18 14:08 Tylenol - PO 650 mg Q6H PRN Administration PAIN LEVEL 1-5 Amlodipine Besylate 10 mg 07/31/18 10:00 08/03/18 11:44 Norvasc - PO 10 mg DAILY [facility] Administration Aspirin 81 mg 08/01/18 12:45 08/03/18 11:44 Ecotrin - PO 81 mg DAILY [facility] Administration Atorvastatin Calcium 80 mg 07/29/18 22:00 08/03/18 22:11 Lipitor - PO 80 mg HS [facility] Administration Carvedilol 25 mg 07/29/18 10:00 08/03/18 22:11 Coreg - PO 25 mg BID [facility] Administration Cinacalcet 90 mg 07/29/18 10:00 08/03/18 11:45 Sensipar - PO 90 mg DAILY [facility] Administration Clopidogrel Bisulfate 75 mg 08/04/18 10:00 Plavix - PO DAILY [facility] Heparin Sodium (Porcine) 5,000 unit 07/29/18 10:00 08/03/18 22:11 Heparin - SQ 5,000 unit BID [facility] Administration Sodium Chloride 250 mls @ 3,000 mls/hr 08/03/18 16:49 Normal Saline - IV 08/04/18 16:49 PRN PRN Hypotension during Dialysis Pantoprazole Sodium 40 mg 07/29/18 10:00 08/03/18 11:44 Protonix - PO 40 mg DAILY [facility] Administration Polyethylene Glycol 17 gm 07/31/18 22:00 08/04/18 05:58 Miralax (For Daily Use) - PO 17 gm TID [facility] Administration Impression 1. ESRD 2. elevated lipase 3. hx of anemia 4. HTN 5. gerd 6. cad 7. hld Plan - HD today - pt has HD scheduled as outpt tomorrow as well, she was instructed to go to HD tomorrow as well - GI follow up after discharge - pt tolerating diet Dr Wright
--- NOTE | 2018-08-04 12:24 | PN ---
Progress Note (short form) - Note Progress Note: Patient seen in dialysis. States feeling pain still. vss +mild tender 2nd mpj, -fracture on xray Arthralgia Friebergs NSAIDS PRN. Shoe gear change. Orthoses recommended.
[2018-08-04 12:33] LABS: CREATININE 2.9 mg/dL (0.55-1.3)
--- NOTE | 2018-08-04 12:34 | PN ---
Progress Note, Physician Chief Complaint: Events noted Not in distress History of Present Illness: Patient was seen and examined. Awake and alert. Chart was reviewed Getting dialyzed. Denies chest pain, SOB or palpitations - Current Medication List Current Medications: Active Medications Acetaminophen (Tylenol -) 650 mg PO Q6H PRN PRN Reason: PAIN LEVEL 1-5 Last Admin: 08/02/18 14:08 Dose: 650 mg Amlodipine Besylate (Norvasc -) 10 mg PO DAILY [facility] Last Admin: 08/03/18 11:44 Dose: 10 mg Aspirin (Ecotrin -) 81 mg PO DAILY [facility] Last Admin: 08/03/18 11:44 Dose: 81 mg Atorvastatin Calcium (Lipitor -) 80 mg PO HS [facility] Last Admin: 08/03/18 22:11 Dose: 80 mg Carvedilol (Coreg -) 25 mg PO BID [facility] Last Admin: 08/03/18 22:11 Dose: 25 mg Cinacalcet (Sensipar -) 90 mg PO DAILY [facility] Last Admin: 08/03/18 11:45 Dose: 90 mg Clopidogrel Bisulfate (Plavix -) 75 mg PO DAILY [facility] Heparin Sodium (Porcine) (Heparin -) 5,000 unit SQ BID [facility] Last Admin: 08/03/18 22:11 Dose: 5,000 unit Sodium Chloride (Normal Saline -) 250 mls @ 3,000 mls/hr IV PRN PRN PRN Reason: Hypotension during Dialysis Stop: 08/04/18 16:49 Pantoprazole Sodium (Protonix -) 40 mg PO DAILY [facility] Last Admin: 08/03/18 11:44 Dose: 40 mg Polyethylene Glycol (Miralax (For Daily Use) -) 17 gm PO TID [facility] Last Admin: 08/04/18 05:58 Dose: 17 gm - Objective Vital Signs: Vital Signs Temperature 98.2 F 08/04/18 08:15 Pulse Rate 61 08/04/18 12:00 Respiratory Rate 18 08/04/18 12:00 Blood Pressure 171/89 H 08/04/18 12:00 O2 Sat by Pulse Oximetry (%) 98 08/04/18 02:00 Eyes: Yes: PERRL HENT: Yes: Atraumatic Neck: Yes: Supple Cardiovascular: Yes: Regular Rate and Rhythm, S1, S2 Respiratory: Yes: CTA Bilaterally Gastrointestinal: Yes: Normal Bowel Sounds, Soft. No: Tenderness Edema: No Labs: CBC, BMP 08/04/18 07:22 Problem List - Problems (1) Diastolic dysfunction Code(s): I51.89 - OTHER ILL-DEFINED HEART DISEASES (2) ESRD (end stage renal disease) on dialysis Code(s): N18.6 - END STAGE RENAL DISEASE; Z99.2 - DEPENDENCE ON RENAL DIALYSIS (3) Elevated lipase Code(s): R74.8 - ABNORMAL LEVELS OF OTHER SERUM ENZYMES (4) Pancreatitis Code(s): K85.90 - ACUTE PANCREATITIS WITHOUT NECROSIS OR INFECTION, UNSP Qualifiers: Chronicity: acute Pancreatitis type: biliary Acute pancreatitis complication: unspecified Qualified Code(s): K85.10 - Biliary acute pancreatitis without necrosis or infection (5) Acute on chronic diastolic (congestive) heart failure Code(s): I50.33 - ACUTE ON CHRONIC DIASTOLIC (CONGESTIVE) HEART FAILURE (6) Anemia Code(s): D64.9 - ANEMIA, UNSPECIFIED Qualifiers: Anemia type: due to chronic kidney disease (7) Demand ischemia Code(s): I24.8 - OTHER FORMS OF ACUTE ISCHEMIC HEART DISEASE (8) HTN (hypertension) Code(s): I10 - ESSENTIAL (PRIMARY) HYPERTENSION Qualifiers: Hypertension type: essential hypertension Qualified Code(s): I10 - Essential (primary) hypertension (9) Hypercholesterolemia Code(s): E78.00 - PURE HYPERCHOLESTEROLEMIA, UNSPECIFIED Assessment/Plan 1. Acute pancreatitis with erosive gastritis 2. Diastolic dysfunction with h/o failure 3. CAD, demand ischemia 4. Hypertensive cardiovascular disease 5. Hypercholesterolemia 6. ESRD on HD PLAN: 1. Continue ASA 81 mg QD and Plavix 75 mg QD with caution 2. Continue Coreg 25 mg BID, Cozaar 100 mg QD and Norvasc 10 mg QD 3. Continue Lipitor 80 mg QHS 4. HD per renal service 5. Further GI evaluation Further plans are to follow Arthur Castaneda MD
[2018-08-04 13:00] VITALS: BP 144/78; PULSE 66
--- NOTE | 2018-08-04 13:09 | PATH ---
Surgical Pathology Report Patient Name: MUSTAPHA SHAH Med. Rec. #: [id number] /Age/Gender: 1965 (Age: 52) / F Account: [id number] Location: [facility] MED/SURG Taken: 08/03/2018 Received: 08/03/2018 Reported: 08/04/2018 Physicians: Drake Shaw M.D. Specimen(s) Received A: BX DUODENUM SECOND PORTION B: BX ANTRUM Clinical History Abdominal pain, nausea Postoperative diagnosis: Erosive gastritis Final Diagnosis A. DUODENUM SECOND PORTION, BIOPSY: DUODENUM MUCOSA WITH NO DIAGNOSTIC ABNORMALITIES. NO HISTOLOGIC EVIDENCE OF CELIAC DISEASE. B. ANTRUM, BIOPSY: GASTRIC MUCOSA WITH FOCAL ACUTE AND CHRONIC GASTRITIS. REACTIVE GASTROPATHY PRESENT. IMMUNOSTAIN FOR H. PYLORI IS NEGATIVE. NEGATIVE FOR INTESTINAL METAPLASIA. Electronically Signed Duncan Yoder M.D. Gross Description A. Received in formalin, labeled "biopsy duodenum second portion" are 4 hernandez, irregular portions of soft tissue ranging from 0.1-0.3 cm. in greatest dimension. The specimens are submitted in toto in one cassette. B. Received in formalin, labeled "biopsy antrum" are 2 hernandez, irregular portions of soft tissue averaging 0.4 cm. in greatest dimension. The specimens are submitted in toto in one cassette. 08/03/2018 [facility]08/03/2018
[2018-08-04] MEDS: HEPARIN NA (PORCINE) 5,000 UNITS/ML 1ML VIAL SQ SCH (13:42)
[2018-08-04] MEDS: amLODIPine BESYLATE 5 MG TABLET (FP) PO SCH (13:42)
[2018-08-04] MEDS: CARVEDILOL 25 MG TABLET (FP) PO SCH (13:42)
[2018-08-04] MEDS: PANTOPRAZOLE 40 MG TABLET (FP) PO SCH (13:42)
[2018-08-04] MEDS: ASPIRIN COATED 81 MG TABLET.EC PO SCH (13:42)
[2018-08-04] MEDS: CINACALCET HCL 30 MG TAB (FP) PO SCH (13:43)
[2018-08-04 14:11] VITALS: TEMP 98
== END 2018-08-04 15:39 | disposition home or self-care (01) | DRG 282 ==
LOC: JER 23:37 → JERBED 07-29 04:10 → J7W 07-29 05:59 → OBSVTOIN 07-31 11:33
PROVIDERS: ADMIT Internal Medicine; ATTEND Family Medicine
PROC: 0DB68ZX Excision of Stomach, Via Natural or Artificial Opening Endoscopic, Diagnostic (ICD-10-PCS; 2018-08-03)
PROC: 0DB98ZX Excision of Duodenum, Via Natural or Artificial Opening Endoscopic, Diagnostic (ICD-10-PCS; principal; 2018-08-03 09:30)
PROC: 5A1D70Z Performance of Urinary Filtration, Intermittent, Less than 6 Hours Per Day (ICD-10-PCS; 2018-08-04)
DX: K85.90 Acute pancreatitis without necrosis or infection, unspecified (principal); E78.5 Hyperlipidemia, unspecified; D64.9 Anemia, unspecified; Z99.2 Dependence on renal dialysis; R74.8 Abnormal levels of other serum enzymes; K21.9 Gastro-esophageal reflux disease without esophagitis; Z68.22 Body mass index [BMI] 22.0-22.9, adult; I13.11 Hypertensive heart and chronic kidney disease without heart failure, with stage 5 chronic kidney disease, or end stage renal disease; I24.8 Other forms of acute ischemic heart disease; R64 Cachexia; N18.6 End stage renal disease; I25.119 Atherosclerotic heart disease of native coronary artery with unspecified angina pectoris; K29.50 Unspecified chronic gastritis without bleeding
CPT/HCPCS: 36415; 71045-TC-FY; 73630-TC-LT; 74176-TC; 74181-TC; 80048; 80053; 80061; 80076; 82150; 82565; 82977; 83690; 83721; 83735; 84484; 84520; 84550; 85025; 85027; 86140; 86301; 86704; 86706; 86708; 86803; 87340; 88305-TC; 93005; 93010; 93971-TC; 99283-25; G0378; J1644

== ENCOUNTER 2019-12-24 12:45 | Inpatient (IN) | payer OTHER ==
[2019-12-24 13:24] LABS: BASO % 2.3 % (0-2.0); EOS % 7.1 % (0-4.5); HEMATOCRIT 34.2 % (32.4-45.2); HEMOGLOBIN 11.2 GM/dL (10.7-15.3); MCH 31.9 pg (25.7-33.7); MCHC 32.9 g/dl (32.0-36.0); MEAN CELL VOLUME 96.9 fl (80-96); MEAN PLT VOLUME 9.8 fl (7.5-11.1); NEUT % 54.6 % (42.8-82.8); PLATELET COUNT 142 K/MM3 (134-434); RBC 3.53 M/mm3 (3.60-5.2); RDW 14.2 % (11.6-15.6); WHITE BLOOD COUNT 3.3 K/mm3 (4.0-10.0)
[2019-12-24 13:30] LABS: INR 1.03 (0.83-1.09); PROTHROMBIN TIME (PATIENT) 12.2 SEC (9.7-13.0)
[2019-12-24 13:32] LABS: ACTIVATED PTT 31.5 SECONDS (25.2-36.5)
--- NOTE | 2019-12-24 13:42 | PDOC ---
History of Present Illness - General Chief Complaint: AV shunt bleeding Stated Complaint: LT ARM INJ Time Seen by Provider: 12/24/19 13:15 - History of Present Illness Initial Comments: 54yo F w/ PMH HTN and ESRD p/w bleeding from her dialysis fistula. She states that she finished dialysis and as the nurse pulled out the needle the fistula started to bleed profusely. The patient thinks the nurse may have put the needle in the same place she put it on friday, and this caused the bleed. She denies LOC, dizziness, n/, fever, cough, sore throat, or use of blood thinners. States only change is recently starting CoQ10 OTC. Allergic to PCN Meds: Rendela (phosphorus), amlodipine, carvedilol. PSH - exploratory cath 2019 SHx - denies illicit drugs, EtOH, tobacco use ROS CONSTITUTIONAL: Absent: fever, chills, diaphoresis, generalized weakness, malaise, loss of appetite HEENT: Absent: rhinorrhea, nasal congestion, throat pain, throat swelling, difficulty swallowing, mouth swelling, ear pain, eye pain, visual Changes CARDIOVASCULAR: Absent: chest pain, syncope, palpitations, irregular heart rate, lightheadedness, peripheral edema RESPIRATORY: Absent: cough, shortness of breath, dyspnea with exertion, orthopnea, wheezing, stridor, hemoptysis GASTROINTESTINAL: Absent: abdominal pain, abdominal distension, nausea, vomiting GENITOURINARY: Absent: dysuria, frequency, urgency, hesitancy MUSCULOSKELETAL: Absent: myalgia, arthralgia, joint swelling ++ pain around the location where the tourniquet was. SKIN: Absent: rash, itching, pallor HEMATOLOGIC/IMMUNOLOGIC: Absent: easy bleeding, easy bruising, frequent infections NEUROLOGIC: Absent: headache, focal weakness or paresthesias, dizziness, unsteady gait, seizure, mental status changes, bladder or bowel incontinence PSYCHIATRIC: Absent: anxiety, depression, suicidal or homicidal ideation, hallucinations. PE GENERAL: Well developed, well nourished. Awake and alert. No acute distress. Pt was nauseous during IV insertion but immediately felt better after placement and admin of 4mg zofran IVP. HEENT: Normocephalic, atraumatic. PERRLA, EOMI. No conjunctival pallor. Sclera are non- icteric. Moist mucous membranes. Oropharynx is clear. NECK: Supple. Full ROM. No JVD. No thyromegaly. No lymphadenopathy. +Carotid bruit (1/6) on L CARDIOVASCULAR: Regular rate and rhythm. 2/6 systolic murmur in all four abbasi Distal pulses are 2+ and symmetric.Left dialysis fistula present in L forearm. Palpable thrill is present. Fistula feels hard. It is not bleeding. PULMONARY: No evidence of respiratory distress. Lungs clear to auscultation bilaterally. No wheezing, rales or rhonchi. ABDOMINAL: Soft. Non-tender. Non-distended. No rebound or guarding. No organomegaly. Normoactive bowel sounds. MUSCULOSKELETAL Normal range of motion at all joints. No bony deformities or tenderness. No CVA tenderness. EXTREMITIES: No cyanosis. No clubbing. No edema. No calf tenderness. SKIN: Warm and dry. Normal capillary refill. No rashes. No jaundice. NEUROLOGICAL: Alert, awake, appropriate. PSYCHIATRIC: Cooperative. Good eye contact. Appropriate mood and affect. 54yo F w/ ESRD and HTN had her dialysis fistula bleed after dialysis completion. Pt not on blood thinners and currently appears well. Plan: 1. clotted fistula -> consult vascular surgery. 2. bleed -> check CBC and CMP, EKG, coagulability status. 3.Admit due to elevated troponin MDM 1. Labs normal so far. 2. Seen by vascular surgery. He instructed to send pt for U/S of fistula. 12/24/19 15:50 12/24/19 17:07 3. U/S completed and reviewed in ED. No total occlusion identified. Awaiting official read. Will f/u with Vascular Surgery. 12/24/19 20:05 Past History - Medical History Allergies/Adverse Reactions: Allergies Allergy/AdvReac Type Severity Reaction Status Date / Time Penicillins Allergy Severe Difficulty Verified 07/29/18 04:16 Breathing doxercalciferol AdvReac Intermediate Itching Verified 07/29/18 04:17 [From Hectorol] Home Medications: Ambulatory Orders Aspirin [ASA -] 81 mg PO DAILY #30 tab.chew 12/08/17 Carvedilol [Coreg -] 12.5 mg PO BID 12/24/19 Cinacalcet HCl [Sensipar -] 45 mg PO DAILY 12/24/19 Nifedipine [Adalat cc] 60 mg PO DAILY 12/24/19 Sevelamer Carbonate 4,000 mg PO TID 12/24/19 Cardiac Disorders: Yes (PACEMAKER INSERTION) COPD: No Dialysis: Yes (M,W,F) Disorders: Yes (ESRD , m-w-f) HTN: Yes - Surgical History Cardiac Surgery: Yes (PACEMAKER) - Immunization History Immunization Up to Date: Yes - Psycho-Social/Smoking History Smoking Status: No Smoking History: Never smoked Have you smoked in the past 12 months: No Number of Cigarettes Smoked Daily: 0 - Substance Abuse Hx (Audit-C & DAST Scrn) How often the patient has a drink containing alcohol: Never Score: In Men: 4 or > Positive; In Women: 3 or > Positive: 0 Screen Result (Pos requires Nsg. Audit-10AR): Negative *Physical Exam - Vital Signs Last Vital Signs Temp Pulse Resp BP Pulse Ox 97.1 F L 76 20 169/106 H 100 12/24/19 13:00 12/24/19 13:00 12/24/19 13:00 12/24/19 13:00 12/24/19 13:00 ED Treatment Course - LABORATORY CBC & Chemistry Diagram: 12/24/19 13:00 12/24/19 13:00 - ADDITIONAL ORDERS Additional order review: Laboratory Results 12/24/19 13:00 PT with INR 12.20 INR 1.03 PTT (Actin FS) 31.5 12/24/19 13:00 RBC 3.53 L MCV 96.9 H MCHC 32.9 RDW 14.2 MPV 9.8 Neutrophils % 54.6 Lymphocytes % 28.0 Monocytes % 8.0 Eosinophils % 7.1 H Basophils % 2.3 H Discharge - Discharge Information Problems reviewed: Yes Clinical Impression/Diagnosis: Elevated troponin I level, Acute bleeding Shunt malfunction Qualifiers: Encounter type: initial encounter Qualified Code(s): T85.618A - Breakdown (mechanical) of other specified internal prosthetic devices, implants and grafts, initial encounter Condition: Stable - Admission Yes - Follow up/Referral - Patient Discharge Instructions - Post Discharge Activity
[2019-12-24] MEDS ORDERED: ONDANSETRON 4 MG/2 ML VIAL IVPUSH ONE (13:48)
--- NOTE | 2019-12-24 13:49 | PDOC ---
Documentation entered by Ana Maria Allen SCRIBE, acting as scribe for Jesenia Guzman MD. Jesenia Guzman MD: This documentation has been prepared by the Ren valdez Nirvannie, SCRIBE, under my direction and personally reviewed by me in its entirety. I confirm that the documentation accurately reflects all work, treatment, procedures, and medical decision making performed by me. Attending Attestation - Resident Resident Name: Addi Mora - ED Attending Attestation I have performed the following: I have examined & evaluated the patient, The case was reviewed & discussed with the resident, I agree w/resident's findings & plan, Exceptions are as noted - HPI HPI: 12/24/19 13:43 [id number] with a significant past medical history of ESRD (on HD MWF), HTN, CAD, HLD who presents to the ED with left upper extremity bleeding fistula. While in the ED, the patient arrived with AV fistula tourniquet placed by EMS. Patient is diaphoretic and vomiting. Allergies: Penicillins, doxercalciferol Shake Splitter: Dr. Manuel - Physicial Exam PE: 12/24/19 13:43 Agree with the resident's HPI and PE as documented in the electronic medical record. in mild distress, +diaphoretic and vomiting upon exam, EOMI, PERRL, neck supple. Regular rate and rhythm. 2/6 systolic murmur in all four abbasi Distal pulses are 2+ and symmetric.abdomen soft nontender. Back nontender. SALINAS x4, no focal neuro deficits. No peripheral edema. Left dialysis fistula present in L forearm. Palpable thrill is present. +LUE AV fistula that is large, protuberant, and firm without active bleeding after tourniquet was removed. normal color for ethnicity, WWP. 12/24/19 14:58 12/27/19 07:54 - Medical Decision Making 12/24/19 14:59 Vital Signs Temp Pulse Resp BP Pulse Ox 97.1 F L 60 13 137/61 100 12/24/19 13:00 12/24/19 14:16 12/24/19 14:16 12/24/19 14:16 12/24/19 14:16 Vital signs initially hypertensive but patient is actively nauseous. Tourniquet was subsequently removed and she was transported via EMS with tourniquet in place. No further bleeding episodes were noted. She has a very firm protuberant AV fistula, concern for thrombosis Duplex will be ordered Vascular consultation, Dr. Lopez after discussion with Dr. Wright nephro labs and lytes wnl CBC normal lytes normal ESRD noted duplex of AVF shows patency. admit serial H/H, exams, and monitor for bleeding 12/27/19 07:54 Heart Score/ECG Review #1 ECG reviewed & interpreted by me at: 13:40 General ECG Interpretation: Sinus Rhythm, Normal Rate, Normal Intervals 12/24/19 13:49 EKG normal sinus rhythm 60 bpm, no interval abnormalities, narrow QRS, ST and T wave segments and morphology normal. Nonspecific T wave abnormalities Discharge - Discharge Information Problems reviewed: Yes Clinical Impression/Diagnosis: Elevated troponin I level, Acute bleeding Shunt malfunction Qualifiers: Encounter type: initial encounter Qualified Code(s): T85.618A - Breakdown (mechanical) of other specified internal prosthetic devices, implants and grafts, initial encounter Condition: Stable - Follow up/Referral - Patient Discharge Instructions - Post Discharge Activity
[2019-12-24 13:54] LABS: ALBUMIN 3.6 g/dl (3.4-5.0); BILIRUBIN,TOTAL 0.5 mg/dL (0.2-1); BLOOD UREA NITROGEN 10.4 mg/dL (7-18); CALCIUM 9.8 mg/dL (8.5-10.1); CREATININE 3.4 mg/dL (0.55-1.3); POTASSIUM 4.3 mmol/L (3.5-5.1); TOT PROT 6.8 g/dl (6.4-8.2)
--- NOTE | 2019-12-24 17:03 | PN ---
Teaching Attending Note Name of Resident: Carlos Fontana ATTENDING PHYSICIAN STATEMENT I saw and evaluated the patient. I reviewed the resident's note and discussed the case with the resident. I agree with the resident's findings and plan as documented. SUBJECTIVE: 54 year old female with known history of hypertension, Diastolic dysfunction, E SRD on HD who presents to the ED after dialysis. Apparently bleeding began after dialysis was completed. Bleeding was described as heavy, lasting over an hour, eventually prompting dialysis center to call EMS. A tourniquet was placed and patient was taken to the ED OBJECTIVE: Gen: Patient appears frail, not in any distress, appears older than stated age HEENT: EOMI neck; supple, no JVD elevation Chest: fair air movement, no rales, ronchi nor wheezing CVS: RRR with 2/6 systolic ejection murmur abd: soft, slightly tender at the suprapubic/LLQ area, no peritoneal signs, hypoactive bowel sounds, no organomegaly ext: no edema, feet are warm and dry. LUE with AV fistula; can palpate a thrill. There is no evidence of ongoing bleeding jury consultant; no motor nor sensory deficit ASSESSMENT AND PLAN: 1. AV Fistula bleeding - UE Duplex pending - cont close observation of site for further bleeding - vascular surgeon Dr Lopez consulted to assess fistula - hct currently acceptable. recheck in am 2. ESRD on HD - cont with home meds (sevelarmer, etc) 3. HTN 4. DVT prophylaxis DW Dr Fontana, agree with plans of care.
--- NOTE | 2019-12-24 18:13 | CONSULT ---
Consult - text type - Consultation Consultation Note: 54 year old woman ESRD on dialysis with right arm AVF. She developed bleeding today after dialysis. She has not had any other problems recently. On exam, the left upper arm fistula is patent with thrill, not pulsatile. There is a palpable stent in the vein. No edema or active bleeding. Access Duplex shows a patent fistula with indwelling stent. At this time there is no need for an emergency procedure. She will follow up in my office in 2 weeks.
--- NOTE | 2019-12-24 18:34 | HP ---
CHIEF COMPLAINT: bleeding left arm av fistula PCP: HISTORY OF PRESENT ILLNESS: 54 y/o PMH of HTN, HLD, ESRD 2/2 HD (M/W/F), is brought to the ED from her dialysis center s/p HD today, for uncontrolled bleeding of her left arm AV fistula s/p HS. Pt reports being nauseous and vomitedx1 after seeing her arm bleed in the ambulance. Upon arrival to the ED, she had stopped bleeding but was immediately evaluated by her vascular surgeon Dr. Lopez and duplex of the arm was obtained. Denies f/c/n/v/d/sob,chest pain, abdominal pain, radiating arm pains, back pain, EKG: consistent with sinus rhythm, TWI on V1,2, aVl- similar to previous ekg, no new canges. Consistent w/ LVH and LAE, QTc 452 Allergies Penicillins Allergy (Severe, Verified 07/29/18 04:16) Difficulty Breathing doxercalciferol [From Hectorol] Adverse Reaction (Intermediate, Verified 07/29/18 04:17) Itching HOME MEDICATIONS: Home Medications Medication Instructions Recorded Aspirin [ASA -] 81 mg PO DAILY #30 tab.chew 12/08/17 Carvedilol [Coreg -] 12.5 mg PO BID 12/24/19 Cinacalcet HCl [Sensipar -] 45 mg PO DAILY 12/24/19 Nifedipine [Adalat cc] 60 mg PO DAILY 12/24/19 Sevelamer Carbonate 4,000 mg PO TID 12/24/19 PHYSICAL EXAMINATION Vital Signs - 24 hr 12/24/19 12/24/19 12/24/19 13:00 14:16 17:42 Temperature 97.1 F L 98.0 F Pulse Rate 76 Pulse Rate [ 60 61 Apical] Respiratory 20 13 20 Rate Blood Pressure 169/106 H Blood Pressure 137/61 141/73 [Right Arm] O2 Sat by Pulse 100 100 100 Oximetry (%) GENERAL: Awake, alert, and fully oriented, in no acute distress. EYES: Pupils equal, round and reactive to light, extraocular movements intact, No lid lag. EARS, NOSE, THROAT: Moist mucous membranes. NECK: Normal range of motion, supple without lymphadenopathy, JVD, or masses. LUNGS: Breath sounds equal, clear to auscultation bilaterally. No wheezes, and no crackles. HEART: Regular rate and rhythm, normal S1 and S2 without murmur, rub or gallop. Systolic murmur 2/5 ABDOMEN: Soft, nontender, not distended, normoactive bowel sounds, no guarding, no rebound, no masses. Mild suprapubic tenderness on deep palpation UPPER EXTREMITIES: 2+ pulses, warm, well-perfused. No peripheral edema. Left arm AV fistula, palpable thrill and patent fistula. LOWER EXTREMITIES: 2+ pulses, warm, well-perfused. No calf tenderness. No peripheral edema. NEUROLOGICAL: Normal speech. PSYCHIATRIC: Cooperative. Good eye contact. Appropriate mood and affect. SKIN: Warm, dry, normal turgor, Laboratory Results - last 24 hr 12/24/19 12/24/19 12/24/19 13:00 13:00 13:00 WBC 3.3 L RBC 3.53 L Hgb 11.2 Hct 34.2 MCV 96.9 H MCH 31.9 MCHC 32.9 RDW 14.2 Plt Count 142 D MPV 9.8 Absolute Neuts (auto) 1.8 Neutrophils % 54.6 Lymphocytes % 28.0 Monocytes % 8.0 Eosinophils % 7.1 H Basophils % 2.3 H Nucleated RBC % 0 PT with INR 12.20 INR 1.03 PTT (Actin FS) 31.5 Sodium 138 Potassium 4.3 Chloride 99 Carbon Dioxide 30 Anion Gap 8 BUN 10.4 Creatinine 3.4 H Est GFR (CKD-EPI)AfAm 16.73 Est GFR (CKD-EPI)NonAf 14.43 Random Glucose 108 H Calcium 9.8 Total Bilirubin 0.5 AST 29 ALT 22 Alkaline Phosphatase 87 Creatine Kinase 119 Troponin I 0.11 H Total Protein 6.8 Albumin 3.6 Blood Type Antibody Screen 12/24/19 13:00 WBC RBC Hgb Hct MCV MCH MCHC RDW Plt Count MPV Absolute Neuts (auto) Neutrophils % Lymphocytes % Monocytes % Eosinophils % Basophils % Nucleated RBC % PT with INR INR PTT (Actin FS) Sodium Potassium Chloride Carbon Dioxide Anion Gap BUN Creatinine Est GFR (CKD-EPI)AfAm Est GFR (CKD-EPI)NonAf Random Glucose Calcium Total Bilirubin AST ALT Alkaline Phosphatase Creatine Kinase Troponin I Total Protein Albumin Blood Type O POSITIVE Antibody Screen Negative ASSESSMENT/PLAN: ACS r/o AVF bleeding possible UTI ESRD LVH w/systolic murmur Leukopeia- chronic eosinophilia HTN COVID r/o Trops elevated .11, likely chronic in the setting of ESRD, r/p Trop stat trend trops EKG: EKG: consistent with sinus rhythm, TWI on V1,2, aVl- similar to previous ekg, no new canges. Consistent w/ LVH and LAE, QTc 452 HEART score 4 Vascular consulted- Dr. Lopez cleared patient from vascular stand point and f/u outpatient Duplex of left arm neg Tele obs monitoring UA to r/o UTI nephro consult renal diet hold chemical ppx in setting of acute bleeding for fistula lipid panel SCDs Visit type - Emergency Visit Emergency Visit: Yes ED Registration Date: 12/24/19 Care time: The patient presented to the Emergency Department on the above date and was hospitalized for further evaluation of their emergent condition. - New Patient This patient is new to me today: Yes Date on this admission: 12/31/19 - Critical Care Critical Care patient: No ATTENDING PHYSICIAN STATEMENT I saw and evaluated the patient. I reviewed the resident's note and discussed the case with the resident. I agree with the resident's findings and plan as documented. SUBJECTIVE: OBJECTIVE: ASSESSMENT AND PLAN:
--- NOTE | 2019-12-24 18:51 | HP ---
CHIEF COMPLAINT: Bleeding from AV fistula site on L UE PCP: HISTORY OF PRESENT ILLNESS: Ms. Hernandez is a 54F malaysian speaking female w a h/o ESRD on HD MWF, admission to [facility] 07/2018 for suspected acute pancreatitis and errosive gastritis, HTN, HLD, CAD. Presented to the emergency department for bleeding from L UE dialysis fistula. The patient reported that the quality assurance lab technician was struggling to remove the fistula catheter which resulted in excessive bleeding. The patient endorsed nausea at the sight of blood and x1 episode of vomiting. The patient was seen by EMS and a [place] had been applied to stop the bleeding. The patient denies loss of consciousness, dizziness, SOB, or CP. When examined, the patient was aaox3 accompanied by her niece for translation. The patient expressed a similar episode where she was seen and treated by Dr. Spivey 13 years ago. ER course was notable for: (1) EKG shows LVH (2) Troponin of 0.11 (baseline) Recent Travel: denies PAST MEDICAL HISTORY: see hpi PAST SURGICAL HISTORY: see hpi Social History: Smoking:no Alcohol:no Drugs: no Allergies Penicillins Allergy (Severe, Verified 07/29/18 04:16) Difficulty Breathing doxercalciferol [From Hectorol] Adverse Reaction (Intermediate, Verified 07/29/18 04:17) Itching HOME MEDICATIONS: Home Medications Medication Instructions Recorded Aspirin [ASA -] 81 mg PO DAILY #30 tab.chew 12/08/17 Carvedilol [Coreg -] 12.5 mg PO BID 12/24/19 Cinacalcet HCl [Sensipar -] 45 mg PO DAILY 12/24/19 Nifedipine [Adalat cc] 60 mg PO DAILY 12/24/19 Sevelamer Carbonate 4,000 mg PO TID 12/24/19 REVIEW OF SYSTEMS HEENT: CARDIOVASCULAR: Systolic crescendo decrescendo 4/5 murmur heard in all 4 quadrants. RRR RESPIRATORY: Absent: cough, shortness of breath, dyspnea with exertion, orthopnea, wheezing, stridor, hemoptysis GASTROINTESTINAL: Diffuse abdominal pain in all 4 quadrants. GENITOURINARY: Suprapubic pain ENDOCRINE: Absent: unexplained weight gain, unexplained weight loss, heat intolerance, cold intolerance NEUROLOGIC: Absent: headache, focal weakness or paresthesias, dizziness, unsteady gait, seizure, mental status changes, bladder or bowel incontinence PSYCHIATRIC: Absent: anxiety, depression, suicidal or homicidal ideation, hallucinations. PHYSICAL EXAMINATION Vital Signs - 24 hr 12/24/19 12/24/19 12/24/19 13:00 14:16 17:42 Temperature 97.1 F L 98.0 F Pulse Rate 76 Pulse Rate [ 60 61 Apical] Respiratory 20 13 20 Rate Blood Pressure 169/106 H Blood Pressure 137/61 141/73 [Right Arm] O2 Sat by Pulse 100 100 100 Oximetry (%) GENERAL: Awake, alert, and fully oriented, in no acute distress. HEAD: Normal with no signs of trauma. LUNGS: Breath sounds equal, clear to auscultation bilaterally. No wheezes, and no crackles. No accessory muscle use. HEART: Systolic crescendo decrescendo 4/5 murmur heard in all 4 quadrants. RRR ABDOMEN: Diffuse abdominal pain in all 4 quadrants. UPPER EXTREMITIES: L UE fistula with palpable thrill LOWER EXTREMITIES: 2+ pulses, warm, well-perfused. No calf tenderness. No peripheral edema. NEUROLOGICAL: Cranial nerves II-XII intact. Normal speech. Normal gait. PSYCHIATRIC: Cooperative. Good eye contact. Appropriate mood and affect. Laboratory Results - last 24 hr 12/24/19 12/24/19 12/24/19 13:00 13:00 13:00 WBC 3.3 L RBC 3.53 L Hgb 11.2 Hct 34.2 MCV 96.9 H MCH 31.9 MCHC 32.9 RDW 14.2 Plt Count 142 D MPV 9.8 Absolute Neuts (auto) 1.8 Neutrophils % 54.6 Lymphocytes % 28.0 Monocytes % 8.0 Eosinophils % 7.1 H Basophils % 2.3 H Nucleated RBC % 0 PT with INR 12.20 INR 1.03 PTT (Actin FS) 31.5 Sodium 138 Potassium 4.3 Chloride 99 Carbon Dioxide 30 Anion Gap 8 BUN 10.4 Creatinine 3.4 H Est GFR (CKD-EPI)AfAm 16.73 Est GFR (CKD-EPI)NonAf 14.43 Random Glucose 108 H Calcium 9.8 Total Bilirubin 0.5 AST 29 ALT 22 Alkaline Phosphatase 87 Creatine Kinase 119 Troponin I 0.11 H Total Protein 6.8 Albumin 3.6 Blood Type Antibody Screen 12/24/19 12/24/19 13:00 17:39 WBC RBC Hgb Hct MCV MCH MCHC RDW Plt Count MPV Absolute Neuts (auto) Neutrophils % Lymphocytes % Monocytes % Eosinophils % Basophils % Nucleated RBC % PT with INR INR PTT (Actin FS) Sodium Potassium Chloride Carbon Dioxide Anion Gap BUN Creatinine Est GFR (CKD-EPI)AfAm Est GFR (CKD-EPI)NonAf Random Glucose Calcium Total Bilirubin AST ALT Alkaline Phosphatase Creatine Kinase Troponin I 0.12 H Total Protein Albumin Blood Type O POSITIVE Antibody Screen Negative ASSESSMENT/PLAN: Ms. Hernandez is a 54F malaysian speaking female w a h/o ESRD on HD MWF, admission to [facility] 07/2018 for suspected acute pancreatitis and errosive gastritis, HTN, HLD, CAD. Presented to the emergency department for bleeding from L UE dialysis fistula. #Acute coronary syndrome - rule out - lipid panel - troponin x2: 0.11/0.12 - continuing to monitor - EKG changes insignificant for acute change - LVH noted/ QTc 452 noted - admitting patient to telemetry - HEART SCORE: 4 - I/O - weekly weights #ESRD - nephrology consult: Dr. Wright - Renal diet - monitoring lytes - UA ordered for UTI ruleout #LUE fistula bleeding - resolved - duplex ordered - negative - Dr. Spivey seen appreciate recs - Vascular seen appreciate recommendation #DVT ppx - SCD - holding chem ppx due to bleed #COVID r/o - test pending - isolation ATTENDING PHYSICIAN STATEMENT I saw and evaluated the patient. I reviewed the resident's note and discussed the case with the resident. I agree with the resident's findings and plan as documented. SUBJECTIVE: OBJECTIVE: ASSESSMENT AND PLAN:
[2019-12-24 19:29] LABS: CHOLESTEROL 152 mg/dL (50-200); HDL CHOLESTEROL 58 mg/dL (40-60); LDL CHOLESTEROL (ONLY SJRH) 82 mg/dL (5-100); TRIGLYCERIDES 89 mg/dL (0-150)
--- NOTE | 2019-12-24 19:38 | CONSULT ---
Consult Consult Specialty:: Nephrology Reason for Consultation:: esrd - History of Present Illness Chief Complaint: bleeding from fistula History of Present Illness: Pt is a 54 year old female with pmhx of htn, hld, esrd who was sent in from HD for bleeding from her fistula. The bleeding stopped. I was called to evaluate her. I called Dr Lopez to evaluate her. She denies fever or chills. She denies shortness of breath. SHe is awake and alert. SHe did have an episode of vomiting. - History Source History Provided By: Patient - Past Medical History Cardio/Vascular: Yes: CAD (12/17 cardiac cath- distal LAD disease not amenable to stenting), HTN, Hyperlipdemia, Pulmonary Hypertension (by cardiac cath), Other (Had LUE AV fistula stenting 2016 ) Gastrointestinal: Yes: Constipation Renal/: Yes: Renal Failure, Hemodialysis ...LMP: 06/02/13 - Past Surgical History Past Surgical History: Yes: AV Fistula/Graft (Had LUE AV fistula stenting 2016 ) - Alcohol/Substance Use Hx Alcohol Use: Yes (rare only on major holidays) History of Substance Use: reports: None - Smoking History Smoking history: Never smoked Have you smoked in the past 12 months: No Aproximately how many cigarettes per day: 0 - Social History Usual Living Arrangement: With Spouse ADL: Independent Occupation: unemployed History of Recent Travel: No Home Medications - Allergies Allergies/Adverse Reactions: Allergies Allergy/AdvReac Type Severity Reaction Status Date / Time Penicillins Allergy Severe Difficulty Verified 07/29/18 04:16 Breathing doxercalciferol AdvReac Intermediate Itching Verified 07/29/18 04:17 [From Hectorol] - Home Medications Home Medications: Ambulatory Orders Aspirin [ASA -] 81 mg PO DAILY #30 tab.chew 12/08/17 Carvedilol [Coreg -] 12.5 mg PO BID 12/24/19 Cinacalcet HCl [Sensipar -] 45 mg PO DAILY 12/24/19 Nifedipine [Adalat cc] 60 mg PO DAILY 12/24/19 Sevelamer Carbonate 4,000 mg PO TID 12/24/19 Family Medical History Family History: Denies Review of Systems - Review of Systems Constitutional: reports: No Symptoms Eyes: reports: No Symptoms HENT: reports: No Symptoms Neck: reports: No Symptoms Cardiovascular: reports: No Symptoms Respiratory: reports: No Symptoms Gastrointestinal: reports: No Symptoms Genitourinary: reports: No Symptoms Musculoskeletal: reports: Other (bleeding from fistula) Endocrine: reports: No Symptoms Hematology/Lymphatic: reports: No Symptoms Psychiatric: reports: No Symptoms Physical Exam Vital Signs: Vital Signs Temperature 98.0 F 12/24/19 17:42 Pulse Rate 61 12/24/19 17:42 Respiratory Rate 12/24/19 17:42 Blood Pressure 141/73 12/24/19 17:42 O2 Sat by Pulse Oximetry (%) 100 12/24/19 17:42 Constitutional: Yes: Calm Eyes: Yes: Conjunctiva Clear HENT: Yes: Atraumatic Neck: Yes: Supple Cardiovascular: Yes: S1, S2 Respiratory: Yes: CTA Bilaterally Gastrointestinal: Yes: Soft Musculoskeletal: Yes: WNL Extremities: Yes: Other (fistula with thrill and bruit, no more bleeding) Neurological: Yes: Oriented Psychiatric: Yes: Oriented Labs: CBC, BMP 12/24/19 13:00 12/24/19 13:00 Imaging - Results Ultrasound: Report Reviewed Problem List - Problems (1) Acute bleeding Code(s): R58 - HEMORRHAGE, NOT ELSEWHERE CLASSIFIED (2) Elevated troponin I level Code(s): R79.89 - OTHER SPECIFIED ABNORMAL FINDINGS OF BLOOD CHEMISTRY (3) Shunt malfunction Code(s): T85.618A - BREAKDOWN (MECHANICAL) OF INTERNAL PROSTH DEV/GRFT, INIT Qualifiers: Encounter type: initial encounter Qualified Code(s): T85.618A - Breakdown (mechanical) of other specified internal prosthetic devices, implants and grafts, initial encounter Assessment/Plan Impression 1. ESRD 2. bleeding from fistula 3. hx of anemia 4. HTN 5. gerd 6. cad 7. hld Plan - discussed with vascular, she will need outpt follow up - HD as scheduled MWF - renal diet - follow trops - cardiac workup per primary team - monitor hg
[2019-12-24 21:06] VITALS: BMI 19.1
[2019-12-24] MEDS: CARVEDILOL 12.5 MG TABLET (FP) PO SCH (22:03)
[2019-12-25 06:43] LABS: BASO % 1.5 % (0-2.0); EOS % 4.8 % (0-4.5); HEMATOCRIT 27.6 % (32.4-45.2); HEMOGLOBIN 9.1 GM/dL (10.7-15.3); LYMPH % 25.3 % (8-40); MCH 31.6 pg (25.7-33.7); MCHC 33.1 g/dl (32.0-36.0); MEAN CELL VOLUME 95.5 fl (80-96); MEAN PLT VOLUME 9.3 fl (7.5-11.1); MONO % 9.1 % (3.8-10.2); NEUT % 59.3 % (42.8-82.8); PLATELET COUNT 122 K/MM3 (134-434); RBC 2.89 M/mm3 (3.60-5.2); RDW 14.4 % (11.6-15.6); WHITE BLOOD COUNT 4.8 K/mm3 (4.0-10.0)
[2019-12-25 07:08] LABS: ALBUMIN 3.2 g/dl (3.4-5.0); BLOOD UREA NITROGEN 26.8 mg/dL (7-18); CALCIUM 9.6 mg/dL (8.5-10.1); CREATININE 5.9 mg/dL (0.55-1.3); MAGNESIUM 2.9 mg/dL (1.8-2.4); PHOSPHOROUS 6.5 mg/dL (2.5-4.9); POTASSIUM 5.5 mmol/L (3.5-5.1)
[2019-12-25 07:11] LABS: BILIRUBIN,TOTAL 0.7 mg/dL (0.2-1); TOT PROT 5.8 g/dl (6.4-8.2)
[2019-12-25] MEDS ORDERED: PT OWN MED DRAWER 7, Y5N ONE ×2 (08:40→10:19)
[2019-12-25] MEDS ORDERED: CINACALCET HCL 30 MG TAB (FP) PO SCH (10:00)
[2019-12-25] MEDS ORDERED: NIFEdipine E.R 60 MG TABLET PO SCH (10:00)
[2019-12-25] MEDS: CARVEDILOL 12.5 MG TABLET (FP) PO SCH (10:18)
[2019-12-25] MEDS: SEVELAMER CARBONATE 800 MG TAB (FP) PO SCH ×2 (10:19→12:00)
--- NOTE | 2019-12-25 11:27 | DS ---
Physical Examination Vital Signs: Vital Signs Temperature 98.2 F 12/25/19 06:00 Pulse Rate 59 L 12/25/19 06:00 Respiratory Rate 18 12/25/19 06:00 Blood Pressure 153/66 12/25/19 06:00 O2 Sat by Pulse Oximetry (%) 99 12/24/19 21:00 Findings/Remarks: Seen and examined at bedside. Patient is in no acute distress. Reports no chest pain, shortness of breath. No acute complaints. Labs: CBC, BMP 12/25/19 05:46 12/25/19 05:46 Discharge Summary Problems reviewed: Yes Reason For Visit: HEMORRHAGE OF ARTERIOVENEOUS FISTULA Current Active Problems Acute bleeding (Acute) Elevated troponin I level (Acute) Shunt malfunction (Acute) Hospital Course: Ms. Hernandez is a 54F kittitian speaking female w a h/o ESRD on HD MWF, admission to [facility] 07/2018 for suspected acute pancreatitis and errosive gastritis, HTN, HLD, CAD. Presented to the emergency department for bleeding from L UE dialysis fistula. Bleeding stopped by the time the patient came to the ED. Was seen by vascular surgery who recommended no urgent intervention with follow-up as an outpatient in 2 weeks. Repeat hemoglobin showed a drop to 9.1. Patient was incidentally found to have an elevated troponin to 0.11. EKG showed no ST glover es. Telemetry with no events. Patient denied chest pain or shortness of breath. Troponin trended down. Elevated troponin most likely due to chronic kidney disease rather than cardiac etiology. Patient is medically cleared for discharge on her home medications and will follow-up with her PCP and continue Friday dialysis and will follow-up with Dr. Lopez in 2 weeks to reevaluate her AV fistula. Condition: Improved - Instructions Diet, Activity, Other Instructions: Renal diet Referrals: Antoine Lopez MD [Staff Physician] - 2 Weeks (To re-evaluate your AV fistula) Disposition: HOME - Home Medications Comprehensive Discharge Medication List: Ambulatory Orders Aspirin [ASA -] 81 mg PO DAILY #30 tab.chew 12/08/17 Carvedilol [Coreg -] 12.5 mg PO BID 12/24/19 Cinacalcet HCl [Sensipar -] 45 mg PO DAILY 12/24/19 Nifedipine [Adalat cc] 60 mg PO DAILY 12/24/19 Sevelamer Carbonate 4,000 mg PO TID 12/24/19 Carvedilol [Coreg -] 12.5 mg PO BID tablet 12/25/19 Cinacalcet HCl [Sensipar -] 45 mg PO DAILY tab 12/25/19 This patient is new to me today: Yes Date on this admission: 12/25/19 Emergency Visit: Yes ED Registration Date: 12/24/19 Care time: The patient presented to the Emergency Department on the above date and was hospitalized for further evaluation of their emergent condition. Critical Care patient: No - Discharge Referral Referred to [facility] Med P.C.: No
[2019-12-25] MEDS ORDERED: SODIUM CHLORIDE 250 ML IV PRN (13:03)
[2019-12-25] MEDS ORDERED: EPOETIN ALFA 10,000 UNIT/1 ML VIAL IVPUSH ONE (13:15)
--- NOTE | 2019-12-25 13:20 | PN ---
Progress Note, Physician History of Present Illness: Pt seen and examined at bedside. SHe is awake and alert. She denies shortness of breath. - Current Medication List Current Medications: Active Medications Carvedilol (Coreg -) 12.5 mg PO BID [facility] Last Admin: 12/25/19 10:18 Dose: 12.5 mg Documented by: Cinacalcet (Sensipar -) 45 mg PO DAILY [facility] Last Admin: 12/25/19 10:21 Dose: 45 mg Documented by: Sodium Chloride (Normal Saline -) 250 mls @ 3,000 mls/hr IV PRN PRN PRN Reason: Hypotension during Dialysis Stop: 12/26/19 13:02 Nifedipine (Procardia Xl -) 60 mg PO DAILY [facility] Last Admin: 12/25/19 10:18 Dose: 60 mg Documented by: Sevelamer Carbonate (Renvela -) 4,000 mg PO TIDCM [facility] Last Admin: 12/25/19 10:19 Dose: 4,000 mg Documented by: - Objective Vital Signs: Vital Signs Temperature 98.2 F 12/25/19 06:00 Pulse Rate 67 12/25/19 12:45 Respiratory Rate 18 12/25/19 12:45 Blood Pressure 148/66 12/25/19 12:45 O2 Sat by Pulse Oximetry (%) 99 12/24/19 21:00 Constitutional: Yes: Calm Eyes: Yes: Conjunctiva Clear HENT: Yes: Atraumatic Neck: Yes: Supple Cardiovascular: Yes: S1, S2 Respiratory: Yes: CTA Bilaterally Gastrointestinal: Yes: Soft Genitourinary: Yes: WNL Musculoskeletal: Yes: WNL Edema: No Neurological: Yes: Oriented Psychiatric: Yes: Oriented Labs: CBC, BMP 12/25/19 05:46 12/25/19 05:46 INR, PTT INR 1.03 (0.83-1.09) 12/24/19 13:00 Problem List - Problems (1) Acute bleeding Code(s): R58 - HEMORRHAGE, NOT ELSEWHERE CLASSIFIED (2) Elevated troponin I level Code(s): R79.89 - OTHER SPECIFIED ABNORMAL FINDINGS OF BLOOD CHEMISTRY (3) Shunt malfunction Code(s): T85.618A - BREAKDOWN (MECHANICAL) OF INTERNAL PROSTH DEV/GRFT, INIT Qualifiers: Encounter type: initial encounter Qualified Code(s): T85.618A - Breakdown (mechanical) of other specified internal prosthetic devices, implants and grafts, initial encounter Assessment/Plan Current Medications Generic Name Dose Route Start Last Admin Trade Name Goyoq PRN Reason Stop Dose Admin Carvedilol 12.5 mg 12/24/19 22:00 12/25/19 10:18 Coreg - PO 12.5 mg BID [facility] Administration Cinacalcet 45 mg 12/25/19 10:00 12/25/19 10:21 Sensipar - PO 45 mg DAILY [facility] Administration Sodium Chloride 250 mls @ 3,000 mls/hr 12/25/19 13:03 Normal Saline - IV 12/26/19 13:02 PRN PRN Hypotension during Dialysis Nifedipine 60 mg 12/25/19 10:00 12/25/19 10:18 Procardia Xl - PO 60 mg DAILY [facility] Administration Sevelamer Carbonate 4,000 mg 12/25/19 08:00 12/25/19 10:19 Renvela - PO 4,000 mg TIDCM [facility] Administration Impression 1. ESRD 2. bleeding from fistula 3. hx of anemia 4. HTN 5. gerd 6. cad 7. hld 8. hyperkalemia Plan - will arrange for HD today as potassium elevated - renal diet - pt has HD set up as outpt - pt will follow with vascular as outpt - no objection to d/c after HD from renal standpoint
[2019-12-25 15:36] VITALS: BP 160/59; PULSE 66; TEMP 98.2
--- NOTE | 2019-12-26 17:30 | EKG ---
Test Reason : Blood Pressure : / mmHG Vent. Rate : 058 BPM Atrial Rate : 058 BPM P-R Int : 134 ms QRS Dur : 100 ms QT Int : 434 ms P-R-T Axes : 000 025 084 degrees QTc Int : 426 ms SINUS BRADYCARDIA OTHERWISE NORMAL ECG WHEN COMPARED WITH ECG OF 24-DEC-2019 13:39, NO SIGNIFICANT CHANGE WAS FOUND Confirmed by MD Watkins Edward ([id number]) on 12/26/2019 5:29:44 PM Referred By: Frankie THORPE Confirmed By:David Watkins MD
--- NOTE | 2019-12-26 17:36 | EKG ---
Test Reason : Blood Pressure : / mmHG Vent. Rate : 060 BPM Atrial Rate : 060 BPM P-R Int : 130 ms QRS Dur : 096 ms QT Int : 452 ms P-R-T Axes : 012 021 077 degrees QTc Int : 452 ms NORMAL SINUS RHYTHM NORMAL ECG WHEN COMPARED WITH ECG OF 29-JUL-2018 02:31, T WAVE INVERSION LESS EVIDENT IN LATERAL LEADS Confirmed by MD June, David ([id number]) on 12/26/2019 5:36:42 PM Referred By: Confirmed By:David Watkins MD
== END 2019-12-25 18:54 | disposition home or self-care (01) | DRG 206 ==
LOC: JER 12:45 → JERBED 17:47 → J4W 19:36
PROVIDERS: ADMIT Internal Medicine; ATTEND Internal Medicine
PROC: 5A1D70Z Performance of Urinary Filtration, Intermittent, Less than 6 Hours Per Day (ICD-10-PCS; principal; 2019-12-25)
DX: T82.838A Hemorrhage due to vascular prosthetic devices, implants and grafts, initial encounter (principal); I12.0 Hypertensive chronic kidney disease with stage 5 chronic kidney disease or end stage renal disease; N18.6 End stage renal disease; D72.1 Eosinophilia; I27.20 Pulmonary hypertension, unspecified; Z99.2 Dependence on renal dialysis; I25.10 Atherosclerotic heart disease of native coronary artery without angina pectoris; Y83.8 Other surgical procedures as the cause of abnormal reaction of the patient, or of later complication, without mention of misadventure at the time of the procedure; E78.5 Hyperlipidemia, unspecified; D64.9 Anemia, unspecified; D72.819 Decreased white blood cell count, unspecified; Z88.0 Allergy status to penicillin; K29.70 Gastritis, unspecified, without bleeding; K21.9 Gastro-esophageal reflux disease without esophagitis
CPT/HCPCS: 36415; 71045-TC-FY; 80053; 80061; 82550; 83721; 83735; 84100; 84484; 85025; 85027; 85610; 85730; 86803; 86850; 86900; 86901; 87340; 93005; 93010; 93971; 99285-25; J0885; U0003

== ENCOUNTER 2020-07-10 07:35 | Inpatient (IN) | payer OTHER ==
[2020-07-10] MEDS ORDERED: CALCIUM GLUCONATE 10% - 1,000 MG/10 ML VIAL ONE ×3 (08:06→08:41)
[2020-07-10] MEDS ORDERED: DEXTROSE 50%-WATER 25 GM/50 ML DISP.SYRIN ONE ×2 (08:16→10:03)
[2020-07-10] MEDS ORDERED: MIDAZOLAM HCL 2 MG/2 ML SINGLE DOSE VIAL ONE (08:17)
[2020-07-10] MEDS ORDERED: SODIUM BICARBONATE 8.4% - 100 ML ONE (08:17)
[2020-07-10] MEDS ORDERED: ONDANSETRON 4 MG/2 ML VIAL ONE (08:17)
[2020-07-10] MEDS ORDERED: CALCIUM GLUCONATE 10% - 1,000 MG/10 ML VIAL IVPB ONE ×2 (08:18→09:49)
[2020-07-10] MEDS ORDERED: ATROPINE SULFATE 1 MG/10 ML DISP.SYRIN IVPUSH ONE (08:20)
[2020-07-10] MEDS ORDERED: ONDANSETRON 4 MG/2 ML VIAL IVPUSH ONE (08:20)
[2020-07-10] MEDS ORDERED: MIDAZOLAM HCL 2 MG/2 ML SINGLE DOSE VIAL IVPUSH ONE (08:31)
[2020-07-10] MEDS ORDERED: SODIUM BICARBONATE 8.4% 50 MEQ/50 ML DISP.SYRIN IVPUSH ONE ×3 (08:34→09:50)
[2020-07-10] MEDS ORDERED: ATROPINE SULFATE 1 MG/10 ML DISP.SYRIN ONE (08:41)
[2020-07-10 08:48] LABS: BASO % 1.1 % (0-2.0); EOS % 6.2 % (0-4.5); HEMATOCRIT 36.6 % (32.4-45.2); HEMOGLOBIN 12.2 GM/dL (10.7-15.3); LYMPH % 20.3 % (8-40); MCH 31.5 pg (25.7-33.7); MCHC 33.4 g/dl (32.0-36.0); MEAN CELL VOLUME 94.3 fl (80-96); MEAN PLT VOLUME 10.1 fl (7.5-11.1); MONO % 5.9 % (3.8-10.2); NEUT % 66.5 % (42.8-82.8); PLATELET COUNT 122 K/MM3 (134-434); RBC 3.88 M/mm3 (3.60-5.2); RDW 14.9 % (11.6-15.6); WHITE BLOOD COUNT 4.3 K/mm3 (4.0-10.0)
[2020-07-10 08:58] LABS: INR 1.02 (0.83-1.09); PROTHROMBIN TIME (PATIENT) 12.5 SEC (9.7-13.0)
[2020-07-10 09:01] LABS: ACTIVATED PTT 32.3 SECONDS (25.2-36.5)
[2020-07-10 09:10] LABS: ALBUMIN 3.5 g/dl (3.4-5.0); BLOOD UREA NITROGEN 66.5 mg/dL (7-18); CALCIUM 9.8 mg/dL (8.5-10.1)
[2020-07-10 09:13] LABS: PHOSPHOROUS 5.7 mg/dL (2.5-4.9)
[2020-07-10 09:15] LABS: BILIRUBIN,TOTAL 0.4 mg/dL (0.2-1); TOT PROT 6.8 g/dl (6.4-8.2)
[2020-07-10 09:22] LABS: CREATININE 12.1 mg/dL (0.55-1.3); POTASSIUM 7.6 mmol/L (3.5-5.1)
[2020-07-10] MEDS ORDERED: INSULIN REGULAR HUMAN 100 UNITS/ML *VIAL IVPUSH ONE (09:31)
[2020-07-10] MEDS ORDERED: DEXTROSE 50%-WATER - 25 GM/50 ML VIAL IVPUSH ONE (09:31)
[2020-07-10] MEDS ORDERED: SODIUM POLYSTYRENE SULFONATE 15 GM/60 ML BOTTLE RC ONE (09:31)
[2020-07-10] MEDS ORDERED: CALCIUM GLUCONATE 10% - 1,000 MG/10 ML VIAL IVPUSH ONE (09:31)
[2020-07-10 10:02] LABS: VENOUS BASE EXCESS -1.4 mmol/L (-2-2); VENOUS O2 SATURATION 64.7 % (70-80); VENOUS PCO2 50.7 mmHg (38-52); VENOUS PH 7.316 (7.310-7.410)
[2020-07-10] MEDS ORDERED: SODIUM POLYSTYRENE SULFONATE 15 GM/60 ML BOTTLE ONE (10:02)
[2020-07-10 10:35] LABS: CALCIUM 10.7 mg/dL (8.5-10.1)
[2020-07-10 10:36] LABS: BLOOD UREA NITROGEN 68.5 mg/dL (7-18)
[2020-07-10 10:56] LABS: POTASSIUM 8.1 mmol/L (3.5-5.1)
[2020-07-10 11:35] VITALS: BMI 20.5
[2020-07-10] MEDS ORDERED: ACETAMINOPHEN 325 MG TABLET (FP) PO PRN ×2 (13:42→23:38)
[2020-07-10] MEDS ORDERED: SODIUM CHLORIDE 250 ML IV PRN ×2 (13:43→23:38)
[2020-07-10 15:49] LABS: POTASSIUM 3.2 mmol/L (3.5-5.1)
[2020-07-10 15:50] LABS: CALCIUM 8.7 mg/dL (8.5-10.1)
[2020-07-10 15:54] LABS: CREATININE 3.2 mg/dL (0.55-1.3)
[2020-07-10 15:59] LABS: BLOOD UREA NITROGEN 14.1 mg/dL (7-18)
[2020-07-10] MEDS ORDERED: INSULIN SLIDING SCALE (NOVOLOG) 1 VIAL SQ SCH (16:30)
[2020-07-10] MEDS: INSULIN SLIDING SCALE (NOVOLOG) 1 VIAL SQ SCH ×2 (16:42→21:39)
[2020-07-10] MEDS: NIFEdipine E.R 60 MG TABLET PO SCH (19:59)
[2020-07-10] MEDS ORDERED: MUPIROCIN 2% TOPICAL OINTMENT FOR DECOLONIZATION NS SCH (22:00)
[2020-07-10] MEDS ORDERED: CHLORHEXIDINE GLUCONATE 4% CLEANSER FOR DECOLONIZATION TP SCH (22:00)
[2020-07-11] MEDS: INSULIN SLIDING SCALE (NOVOLOG) 1 VIAL SQ SCH ×3 (06:44→20:25)
[2020-07-11 09:12] LABS: BASO % 1.4 % (0-2.0); EOS % 6.8 % (0-4.5); HEMATOCRIT 39.1 % (32.4-45.2); HEMOGLOBIN 13.1 GM/dL (10.7-15.3); LYMPH % 17.4 % (8-40); MCH 31.4 pg (25.7-33.7); MCHC 33.6 g/dl (32.0-36.0); MEAN CELL VOLUME 93.4 fl (80-96); MONO % 7.3 % (3.8-10.2); NEUT % 67.1 % (42.8-82.8); PLATELET COUNT 125 K/MM3 (134-434); RBC 4.18 M/mm3 (3.60-5.2); RDW 14.6 % (11.6-15.6); WHITE BLOOD COUNT 4.3 K/mm3 (4.0-10.0)
[2020-07-11 09:49] LABS: POTASSIUM 4.8 mmol/L (3.5-5.1)
[2020-07-11] MEDS ORDERED: ASPIRIN 81 MG CHEWABLE TABLETS PO SCH ×2 (10:00)
[2020-07-11] MEDS ORDERED: MUPIROCIN 2% TOPICAL OINTMENT FOR DECOLONIZATION NS SCH (10:00)
[2020-07-11] MEDS ORDERED: NIFEdipine E.R 60 MG TABLET PO SCH (10:00)
[2020-07-11] MEDS ORDERED: CARVEDILOL 12.5 MG TABLET (FP) PO SCH (10:00)
[2020-07-11 10:10] VITALS: TEMP 98.1
[2020-07-11 10:31] LABS: CALCIUM 9.3 mg/dL (8.5-10.1)
[2020-07-11 10:32] LABS: ALBUMIN 3.3 g/dl (3.4-5.0); BLOOD UREA NITROGEN 38.7 mg/dL (7-18); MAGNESIUM 3.1 mg/dL (1.8-2.4)
[2020-07-11 10:35] LABS: BILIRUBIN,TOTAL 0.4 mg/dL (0.2-1); PHOSPHOROUS 5.6 mg/dL (2.5-4.9); TOT PROT 6.7 g/dl (6.4-8.2)
[2020-07-11] MEDS: NIFEdipine E.R 60 MG TABLET PO SCH (10:41)
[2020-07-11 20:27] VITALS: BP 122/48; PULSE 67
[2020-07-11] MEDS ORDERED: CHLORHEXIDINE GLUCONATE 4% CLEANSER FOR DECOLONIZATION TP SCH (22:00)
[2020-07-11 23:11] LABS: HEP B CORE AB, TOT Negative (Negative)
== END 2020-07-11 17:30 | disposition home or self-care (01) | DRG 194 ==
LOC: JER 07:35 → JERBED 09:31 → JICU 10:56 → J5WEST-2 21:06
PROVIDERS: ADMIT Internal Medicine Pulmonary Disease
PROC: 5A1D70Z Performance of Urinary Filtration, Intermittent, Less than 6 Hours Per Day (ICD-10-PCS; principal; 2020-07-10)
DX: I13.2 Hypertensive heart and chronic kidney disease with heart failure and with stage 5 chronic kidney disease, or end stage renal disease (principal); E87.5 Hyperkalemia; R00.1 Bradycardia, unspecified; I25.10 Atherosclerotic heart disease of native coronary artery without angina pectoris; D63.1 Anemia in chronic kidney disease; E78.5 Hyperlipidemia, unspecified; I27.20 Pulmonary hypertension, unspecified; K59.09 Other constipation; N18.6 End stage renal disease; I50.32 Chronic diastolic (congestive) heart failure; R79.89 Other specified abnormal findings of blood chemistry; I43 Cardiomyopathy in diseases classified elsewhere; Z99.2 Dependence on renal dialysis
CPT/HCPCS: 36415; 71045-TC-FY; 80048; 80053; 82803; 82962; 83605; 83735; 84100; 84484; 85025; 85027; 85610; 85730; 86704; 86706; 86707; 86708; 86709; 86803; 86850; 86900; 86901; 87340; 93005; 93010; 99291; C9803; U0003

== ENCOUNTER 2023-08-11 13:23 | Emergency (ER) | payer OTHER ==
[2023-08-11 13:57] VITALS: PULSE 66; BMI 23.8
[2023-08-11] MEDS ORDERED: predniSONE 20 MG TABLET (UD) ONE (16:11)
[2023-08-11] MEDS ORDERED: valACYclovir HCL 500 MG TABLET (FP) ONE (16:11)
[2023-08-11] MEDS: valACYclovir HCL 500 MG TABLET (FP) PO ONE (16:29)
[2023-08-11] MEDS: predniSONE 20 MG TABLET (UD) PO ONE (16:29)
[2023-08-11 16:47] LABS: BASO % 1.2 % (0-2.0); EOS % 6.9 % (0-4.5); HEMATOCRIT 43.1 % (32.4-45.2); HEMOGLOBIN 14.3 GM/dL (10.7-15.3); LYMPH % 26.1 % (8-40); MCH 29.1 pg (25.7-33.7); MEAN PLT VOLUME 9.7 fl (7.5-11.1); MONO % 9.3 % (3.8-10.2); NEUT % 56.5 % (42.8-82.8); PLATELET COUNT 134 10^3/uL (134-434); RDW 15.6 % (11.6-15.6); WHITE BLOOD COUNT 4.4 K/mm3 (4.0-10.0)
[2023-08-11 17:02] LABS: POTASSIUM 5.6 mmol/L (3.5-5.1)
[2023-08-11 17:06] LABS: ALBUMIN 3.8 g/dl (3.4-5.0); BLOOD UREA NITROGEN 18.8 mg/dL (7-18); CALCIUM 9.4 mg/dL (8.5-10.1); MAGNESIUM 2.5 mg/dL (1.8-2.4)
[2023-08-11 17:11] LABS: BILIRUBIN,TOTAL 0.5 mg/dL (0.2-1); TOT PROT 8.2 g/dl (6.4-8.2)
[2023-08-11 21:56] LABS: POTASSIUM 4.9 mmol/L (3.5-5.1)
[2023-08-11 21:57] LABS: BLOOD UREA NITROGEN 25.6 mg/dL (7-18); CALCIUM 9.5 mg/dL (8.5-10.1)
[2023-08-11 22:01] LABS: CREATININE 5.9 mg/dL (0.55-1.3)
[2023-08-11 22:46] VITALS: BP 138/76; RESP 18; TEMP 98.1
== END 2023-08-11 22:47 | disposition home or self-care (01) ==
LOC: JER 13:23
DX: R53.1 Weakness (principal); G51.0 Bell's palsy; H53.8 Other visual disturbances
CPT/HCPCS: 36415; 70450-TC; 80048; 80053; 83735; 85025; 93005; 93010; 99285-25

== ENCOUNTER 2024-09-09 23:59 | Emergency (ER) | payer OTHER ==
[2024-09-10 00:08] VITALS: TEMP 98.2; BMI 20.7
[2024-09-10 01:08] LABS: ABSOLUTE IMMATURE GRANULOCYTES 0.01 x10^3/uL (0.0-0.031); BASOPHILS # 0.04 x10^3/uL (0.01-0.08); EOSINOPHIL % 6.6 % (0.7-5.8); EOSINOPHILS # 0.32 x10^3/uL (0.04-0.36); HEMATOCRIT 36.4 % (34.1-44.9); HEMOGLOBIN 11.7 g/dL (11.2-15.7); MCHC 32.1 g/dl (32.2-35.5); MEAN CELL VOLUME 91.9 fl (79.4-94.8); MEAN PLT VOLUME 12.1 fl (9.4-12.3); MONOCYTE # 0.56 x10^3/uL (0.24-0.86); MONOCYTE % 11.5 % (4.7-12.5); PLATELET COUNT 118 x10^3/uL (182-369); RDW 13.7 % (12.3-16.6)
[2024-09-10 01:27] LABS: INR 1.07 (0.83-1.09); PROTHROMBIN TIME (PATIENT) 11.7 SEC (9.7-13.0)
[2024-09-10 01:30] LABS: ACTIVATED PTT 31.1 SECONDS (25.2-36.5)
[2024-09-10 01:44] LABS: CHLORIDE 101 mmol/L (98-107); POTASSIUM 5.1 mmol/L (3.5-5.1); SODIUM 136 mmol/L (136-145)
[2024-09-10 01:46] LABS: ALBUMIN 3.6 g/dl (3.4-5.0); CALCIUM 8.3 mg/dL (8.5-10.1)
[2024-09-10 01:47] LABS: ANION GAP 11 mmol/L (4-13); BLOOD UREA NITROGEN 51.4 mg/dL (7-18); CO2 23 mmol/L (21-32); GLUCOSE,RANDOM 111 mg/dL (74-106); MAGNESIUM 2.7 mg/dL (1.8-2.4)
[2024-09-10 01:49] LABS: SGOT/AST 30 U/L (15-37)
[2024-09-10 01:50] LABS: SGPT/ALT 17 U/L (13-61)
[2024-09-10 01:52] LABS: BILIRUBIN,TOTAL 0.4 mg/dL (0.2-1); TOT PROT 6.9 g/dl (6.4-8.2)
[2024-09-10 01:53] LABS: ALK PHOS 244 U/L (45-117)
[2024-09-10 01:54] LABS: CREATININE 9.2 mg/dL (0.55-1.3)
[2024-09-10 02:33] LABS: HCV DIAGNOSTIC IN-HOUSE W/RFLX NON-REACTIVE (NONREACTIVE)
[2024-09-10] MEDS ORDERED: ACETAMINOPHEN 325 MG TABLET (FP) ONE (02:44)
[2024-09-10] MEDS: ACETAMINOPHEN 500 MG TABLET (FP) PO ONE (02:52)
[2024-09-10 03:53] VITALS: BP 136/74; PULSE 64; RESP 18
[2024-09-10 14:24] LABS: HIV INTERPRETATION NEGATIVE (NEGATIVE)
== END 2024-09-10 03:53 | disposition home or self-care (01) ==
LOC: JER 23:59
DX: D58.2 Other hemoglobinopathies (principal); R07.89 Other chest pain
CPT/HCPCS: 36415; 71045-TC-FY; 80053; 83735; 84484; 85025; 85610; 85730; 86803; 86850; 86900; 86901; 87389; 93005; 93010; 99285-25